=== PATIENT | male | born 1945 | race Caucasian/White ===

== ENCOUNTER 2018-03-25 20:26 | Emergency (ER) | payer MEDICARE, SELFPAY ==
--- NOTE | 2018-03-25 20:26 | DT_ITS ---
This patient was seen during an EMR downtime March 22, 2018 - March 29, 2018. This patient may have a combination of paper and electronic documentation or all paper documentation. All documentation is viewable within the e-chart portion of [facility] for each patient visit.
== END 2018-03-25 21:25 | disposition home or self-care (01) ==
LOC: ED 03-26 08:18
PROVIDERS: Emergency Provider Emergency Medicine; Family Provider Internal Medicine; PCP Internal Medicine
DX: K59.00 Constipation, unspecified (principal); I10 Essential (primary) hypertension; Z86.718 Personal history of other venous thrombosis and embolism; Z86.711 Personal history of pulmonary embolism; Z79.01 Long term (current) use of anticoagulants; Z79.899 Other long term (current) drug therapy
CPT/HCPCS: 99283

== ENCOUNTER 2018-04-19 13:30 | Emergency (ER) | payer MEDICARE, SELFPAY ==
[2018-04-19 13:31] VITALS: BP 145/106; PULSE 111; RESP 16; TEMP 36.7; O2SAT 98; BMI 30.9
--- NOTE | 2018-04-19 15:11 | CT_ITS ---
STUDY: CT ABDOMEN AND PELVIS WITH CONTRAST REASON FOR EXAM: Male, 72 years old. Umbilical hernia RADIATION DOSAGE (If Supplied By Facility): CTDIvol = ( 17.09 ) mGy, DLP = ( 1169.87 ) mGycm TECHNIQUE: Transaxial images were obtained from the dome of the diaphragm to the symphysis pubis without oral contrast. 100CC ml of Isovue 300 contrast was administered. Sagittal and coronal images were reconstructed. Individualized dose optimization techniques were used for this CT. COMPARISON: 08/22/2014 FINDINGS: The visualized lung bases are clear. The visualized portions of the heart and pericardium are within normal limits. There are no calcified gallstones present. The liver is within normal limits. There are no suspicious hepatic lesions. There are stable subcentimeter indeterminate hypodensities noted in the spleen. The spleen is normal in size. The pancreas is within normal limits. The adrenal glands are within normal limits. There are no renal or ureteral stones. There is no hydronephrosis. There are no focal renal lesions. Normal visualized stomach. There is no bowel obstruction or inflammation. The appendix is visualized and appears normal. There is a fat-containing ventral hernia which is stable in size when compared with the prior exam. There is mild stranding of the herniated fat. There is no bowel containing hernia. The aorta is normal in caliber. There is a small amount of free fluid. There is no free air, fluid collection or lymphadenopathy. There are bladder is diffusely thick-walled. Clinical correlation is recommended to evaluate for cystitis. There are no destructive osseous lesions. CT/Abdomen/Pelvis WITH Contrast IMPRESSION: Fat containing ventral hernia which is stable in size when compared with the prior exam. There is mild stranding of the herniated fat which is new when compared to the prior exam. This may be due to fat necrosis. No bowel containing hernia. No bowel obstruction or inflammation. Normal appendix. Diffusely thick-walled urinary bladder. Clinical correlation is recommended to evaluate for cystitis. Small amount of ascites. Stable indeterminate splenic hypodensities. Electronically Signed: Robert Chen, at 17:29 EDT Tel , Service support ,
--- NOTE | 2018-04-19 15:16 | ED.DCSUM_ITS ---
- ER Visit Summary Date of Service: 04/19/18 Chief Complaint: Abdominal pain History of Present Illness: The patient is a 72 M presenting with abdominal pain. Patient states he woke up around 4 AM this morning, 11 hours prior to arrival. He states that his umbilical hernia was sticking out and he was unable to get it back in. He has had the hernia for over 20 years. He states he has never had this problem in the past. He denies vomiting or fever. He states he has a history of previous bowel obstructions and feels similar. His last bowel movement was yesterday. Physical Examination: Vitals are stable. Patient is afebrile. Alert no acute distress. HEENT exam is unremarkable. Neck is supple. Lungs are clear and equal bilaterally. Heart is regular rate and rhythm. Abdomen is soft tenderness umbilical hernia Extremities are unremarkable. Skin is warm and dry. No focal neurologic deficit. Remainder of exam is unremarkable. Emergency Department Course and Treatment: Patient was placed in Trendelenburg and hernia was reduced. CBC, chemistries unremarkable other than glucose 121. INR 2.0. Urinalysis shows over 100 white blood cells. Lactic acid is normal. Urine culture was sent. CT abdomen pelvis shows fat containing ventral hernia which is stable in size when compared with the prior exam. There is mild stranding of the herniated fat which is new when compared to the prior exam. This may be due to fat necrosis. No bowel containing hernia. No bowel obstruction or inflammation. Normal appendix. Diffusely thick-walled urinary bladder. Clinical correlation is recommended to evaluate for cystitis. Small amount of ascites. Stable indeterminate splenic hypodensities. Patient is feeling much improved on repeat evaluation. He has been able to have a bowel movement in the emergency department. His abdominal pain is completely resolved. He is given Keflex for UTI. Discussed with Dr. Floyd and she will see him in the office tomorrow. Advised return to the ED for any worsening complaints. Disposition: Discharge home Impression: Abdominal pain, hernia-reduced This note was generated with [employer] dictation software. It may contain incorrect words, spelling, and punctuation that were not noted in review of the chart prior to signing ED Disposition - Plan for ED Patient: Chief Complaint: Abd Pain Referrals: Radha Franz MD [Primary Care Provider] -
[2018-04-19 15:39] LABS: Absolute Lymphocyte Count 0.86 X10^3/ul (0.83-4.51); Absolute Neutrophil Count 5.5 X10^3/uL (2.0-7.7); Basophil# 0.02 X10^3/uL; Basophil% 0.3 % (0-1); Eosinophil# 0.04 X10^3/uL; Eosinophils% 0.6 % (0-5); Hematocrit 51.4 % (40-54); Hemoglobin 17.6 g/dl (13.0-16.5); Lymphocyte # 0.86 X10^3/ul (4.0); Lymphocyte % 12.3 % (19-41); Mean Corp Hgb Conc 34.2 g/gl (32-36); Mean Corpuscular Hgb 32.3 pg (27.0-32.0); Mean Corpuscular Volume 94.3 fL (80-94); Mean Platelet Vol. 9.4 fl (6.2-12.0); Monocyte# 0.52 X10^3/uL; Monocyte% 7.5 % (0-10); Neutrophil # 5.52 X10^3/uL (2.7-7.7); Neutrophil % 79.2 % (47-70); Platelet Count 219 K/mm3 (150-450); Red Blood Count 5.45 M/mm3 (4.6-6.2)
[2018-04-19 15:42] LABS: POSITIVE COUNT NO; POSITIVE DIFFERENTIAL NO; POSITIVE MORPHOLOGY NO
[2018-04-19 15:46] LABS: Prothrombin Time (Protime)PT. 22.3 SECONDS (11.7-14.9)
[2018-04-19 15:50] LABS: Anion Gap 8 (5-15); BUN 6 mg/dL (7-18); BUN/Creat Ratio 5.8 RATIO (10-20); Calcium,Total 9.2 mg/dL (8.5-10.1); Chloride 107 mmol/L (98-107); Creatinine, Serum 1.03 mg/dL (0.70-1.30); EST Glomerular Filtration Rate 76 mL/min (>60); Est Glom Filt Rate - Afr Amer 92 mL/min (>60); Estimated Creatinine Clearance 79.76 ml/min; Glucose 121 mg/dL (74-106); Potassium 4.3 mmol/L (3.5-5.1); Sodium Level 145 mmol/L (136-145)
[2018-04-19 15:53] LABS: Mucous, Urine 0 SEEN /hpf (<or=2+); Squamous Epithelial Cells - UA 0 SEEN /hpf (0-5)
[2018-04-19 16:05] LABS: Color, Urine Yellow (Yellow); Glucose, Dipstick Normal (Normal); Ketone-Dipstick 5 mg/dl (Negative); Leukocyte Esterase-Dipstick 500 /ul (Negative); Nitrite-Dipstick Positive (Negative); Occult Blood-Urine 50 /ul (Negative); Protein-Dipstick 30 mg/dl (Negative); Urine Bilirubin Dipstick Negative (Negative); Urine Clarity Cloudy (Clear); Urine Urobilinogen 1 mg/dl (Normal)
[2018-04-19 16:21] LABS: Bacteria 2+ /hpf (None Seen); Red Blood Cells-Urine 5-10 SEEN /hpf (0-5); White Blood Cells >100 SEEN /hpf (0-5)
[2018-04-19 16:43] VITALS: BP 163/100; PULSE 93; RESP 16; O2SAT 97
[2018-04-19 17:17] LABS: Lactic Acid 0.7 mmol/L (0.4-2.0)
[2018-04-19 18:17] VITALS: BP 164/109; PULSE 78; RESP 16; O2SAT 98
--- NOTE | 2018-04-19 18:53 | ED.DEP ---
ED Disposition - Plan for ED Patient: Chief Complaint: Abd Pain Instructions: What Is a Hernia? Prescriptions: Cephalexin [Keflex] 500 mg PO BID #14 capsule Referrals: Radha Franz MD [Primary Care Provider] - Odessa Floyd MD [STAFF PHYSICIAN] -
[2018-04-19] MEDS: Cephalexin Suspension 250 MG/5 ML PO.SYRINGE 500 MG PO (19:09)
[2018-04-19 19:10] VITALS: RESP 16
== END 2018-04-19 19:11 | disposition home or self-care (01) ==
PROVIDERS: Emergency Provider Emergency Medicine; Family Provider Internal Medicine; PCP Internal Medicine
DX: K42.9 Umbilical hernia without obstruction or gangrene (principal); K43.9 Ventral hernia without obstruction or gangrene; R10.9 Unspecified abdominal pain; N39.0 Urinary tract infection, site not specified; G43.909 Migraine, unspecified, not intractable, without status migrainosus; I48.91 Unspecified atrial fibrillation; Z86.39 Personal history of other endocrine, nutritional and metabolic disease; Z87.19 Personal history of other diseases of the digestive system; Z79.01 Long term (current) use of anticoagulants; Z79.899 Other long term (current) drug therapy
CPT/HCPCS: 74177; 80048; 81001; 83605; 85025; 85610; 87077; 87086; 87088; 87186; 96360; 96361; 99284; J7030; J7040; Q9967; A4216

== ENCOUNTER 2018-09-13 10:19 | Day surgery (SDC) | payer MEDICARE, SELFPAY ==
[2018-09-13 10:44] VITALS: BP 112/68; PULSE 91; RESP 18; TEMP 36.8; O2SAT 96; BMI 24.2
[2018-09-13 11:01] LABS: INR Fingerstick > 6.00; Prothrombin Time Fingerstick 67.1 SEC (11.9-14.4)
[2018-09-13 11:04] LABS: Prothrombin Time (Protime)PT. 43.4 SECONDS (11.7-14.9)
--- NOTE | 2018-09-13 11:06 | HP.PCM_ITS ---
History and Physical Date of Admission: 09/13/18 HISTORY AND PHYSICAL ? Juan Antonio Wilson 1945 ? REFERRING PHYSICIAN: ??Maurice Rangel, DO ? CHIEF COMPLAINT: ??discuss EGD/peg placement ? HPI: The patient is a 72 year old male referred for endoscopy. ?Juan Antonio notes weight loss and dysphagia to solids and now liquids. ?He underwent upper endoscopy on August 30, 2018 which demonstrated a near obstructing esophageal cancer in the lower third. ?Biopsies turned as: ? 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 ? The patient is currently scheduled to see thoracic surgery [facility] and has already seen oncology. ?He'll be starting neoadjuvant treatment. ? He is not able to tolerate solid food. ?He can drink approximately 1 can of ensure per day. ?Dr. Rangel asked if I can place a Dobbhoff tube urgently to maintain his nutrition during his treatment. ? The patient is being seen by me today at the request of Dr. Rangel?for my opinion and advice regarding esophageal cancer need for Dobbhoff feeding placement. ? ? PAST MEDICAL HISTORY PAST MEDICAL HISTORY Diagnosis Date ? DVT, lower extremity 2000 ? With PE ? Esophageal reflux ? ? HYPERTROPHY PROSTATE W/O OBST 08/25/2005 ? Impotence of organic origin ? ? Impotence ? Migraine ? ? OA (osteoarthritis) of knee ? ? Right--sees Dr. Jimenes ? Obesity ? ? Other and unspecified hyperlipidemia ? ? Other psoriasis and similar disorders ? ? Psoriasis ? Snoring ? ? Unspecified essential hypertension ? ? ? PAST SURGICAL HISTORY PAST SURGICAL HISTORY Procedure Laterality Date ? LAPROSCOPIC REPAIR UMBILICAL HERNIA ? 04/27/2018 ? PAST SURGICAL HISTORY OF ? ? ? basal cell cancer nose ? PAST SURGICAL HISTORY OF ? 2006 ? Heart ablation ? TOTAL KNEE REPLACEMENT Right ? ? VASECTOMY ? 1980 ? ? CURRENT MEDICATIONS ? Current Outpatient Prescriptions: esomeprazole (NEXIUM) 40 mg capsule Take twice daily for 2 weeks then take once daily docusate sodium (COLACE) 100 mg capsule Take 1 capsule by mouth once daily. warfarin (COUMADIN) 5 mg tablet Take 7.5mg MWF and 5mg TTSS or as directed Tadalafil (CIALIS) 20 mg tab(s) Take 1 tablet by mouth once daily as needed. As directed. diltiazem CD (CARTIA XT) 180 mg 24 hr capsule Take 1 capsule by mouth once daily. tamsulosin ER (FLOMAX) 0.4 mg cp24 Take 2 capsules by mouth daily at bedtime. THERAPEUTIC MULTIVITAMIN TAB Take one(1) tablet daily. ? No current facility-administered medications for this visit. ? ALLERGIES: [place] [Hydrocodone-Acetaminophen] ? PERSONAL HISTORY: SOCIAL HISTORY Social History ??Marital status: ?Spouse name: ?Years of education: ?Number of children: ? Social History Main Topics ??Smoking status: Never Smoker ?Smokeless tobacco: Current User ?Types: Chew ??Comment: chews 1/2 pack daily ??Alcohol use: Yes ?Comment: beer ??Drug use: No ? FAMILY HISTORY: FAMILY HISTORY FAMILY HISTORY Problem Relation Age of Onset ? Hypertension Father ? ? other (voice box problems) Sister ?gets botox injections ? Cancer Maternal Grandmother ? ? Cancer Maternal Grandfather ? ? other (fall hip fracture) Paternal Grandmother ? at 91 ? other (old age) Paternal Grandfather ? ? REVIEW OF SYMPTOMS: ??The review of systems data was entered by the nurse and reviewed by me ? There are no exam notes on file for this visit. ? ? PHYSICAL EXAMINATION: ? General: ?The patient is 72 year old male, well nourished, well hydrated in no acute distress. ?The patient is oriented to time, place, and person. ? VITALS: Weight 89.4 kg (197 lb).?Body mass index is 26.35 kg/m?.? ? HEENT: ?Normal cephalic, ataumatic, pupils are equally round, sclera are anicteric, mucous membranes are moist, oropharynx is clear. ?Neck has no masses, asymmetry or lymphadenopathy. ?Thyroid is unremarkable. ? Respiratory: ?Clear to auscultation and percussion. ?Normal respiratory excursion and pattern. ? Cardiac: ?Examination is regular rate and rhythm. ? Abdominal exam: ?Soft, nontender, ?with no palpable masses. ?No hepatosplenomegaly. ?No palpable hernias. ? Rectal exam: exam deferred ? Extremities: ?no clubbing, cyanosis or edema. ?No adenopathy. ? Other: ? LABORATORY VALUES: As Noted ? RADIOLOGIC STUDIES: ?As Noted ? Assessment ? IMPRESSION: Esophageal cancer, need for feeding access ? PLAN: ?I plan to perform upper?endoscopy with Dobbhoff placement. ??We discussed the risks and benefits of the planned endoscopy. ?I have informed the patient that complications can occur including failure to complete the endoscopy and perforation. ?The patient had the opportunity to ask questions concerning the planned endoscopy. ?My staff has also explained the procedure to the patient in understandable terms and has given the patient printed material concerning the procedure. ?The patient freely consents to surgery. ? ? ? I plan for monitored anesthetic care. ? Diagnoses: (R13.10) Esophageal dysphagia ?(primary encounter diagnosis) (Z79.01) On continuous oral anticoagulation (C15.9) Malignant neoplasm of esophagus, unspecified location (HCC) ? My findings have been communicated to Dr. Chin Franz MD?via shared medical record. ?This note will be forwarded to Dr. Radha Franz MD. ?? Return to Clinic: The patient is instructed to follow-up with me after the testing has been completed. ? Hunter Cruz MD
[2018-09-13 11:07] LABS: International Normalized Ratio 4.5
[2018-09-13 12:55] VITALS: BP 112/68; BP 92/71; PULSE 81; RESP 14; TEMP 36.9; O2SAT 94
--- NOTE | 2018-09-13 12:55 | RAD_ITS ---
STUDY: X-RAY - ABDOMEN/PELVIS REASON FOR EXAM: Male, 72 years old. Dobbhoff tube placement. TECHNIQUE: Single AP view of the abdomen / pelvis. COMPARISON: None. FINDINGS: The tip of the Dobbhoff tube is seen within the second portion of the duodenum. There is an unremarkable bowel gas pattern. The visualized liver, spleen and kidneys are grossly normal in size and morphology. Normal soft tissue structures. Minimal levoscoliosis most likely secondary to positioning. RAD/Abdomen Single View (Portable) IMPRESSION: The tip of the Dobbhoff tube is in the second portion of the duodenum. Electronically Signed: Addison Rogers MD at 13:39 EST Tel [phone], Service support ,
[2018-09-13 13:00] VITALS: BP 112/68; BP 96/69; PULSE 82; RESP 14; O2SAT 93
--- NOTE | 2018-09-13 13:02 | OP.ENDO_ITS ---
Patient Name: Juan Antonio Wilson Procedure Date: 09/13/2018 11:43 AM Date of : 1945 Age: 72 Procedure: Upper GI endoscopy Indications: Therapeutic procedure Providers: Hunter Cruz MD Referring MD: Hunter Cruz MD Medicines: Monitored Anesthesia Care Patient Profile: This is a 72 year old male. Refer to note in patient chart for documentation of history and physical. Complications: No immediate complications. Procedure: Pre-Anesthesia Assessment: - Prior to the procedure, a History and Physical was performed, and patient medications and allergies were reviewed. The patient is competent. The risks and benefits of the procedure and the sedation options and risks were discussed with the patient. All questions were answered and informed consent was obtained. Patient identification and proposed procedure were verified by the physician, the nurse and the funeral greeter in the procedure room. Mental Status Examination: alert and oriented. Airway Examination: normal oropharyngeal airway and neck mobility. Respiratory Examination: clear to auscultation. CV Examination: normal. Prophylactic Antibiotics: The patient does not require prophylactic antibiotics. Prior Anticoagulants: The patient has taken no previous anticoagulant or antiplatelet agents. ASA Grade Assessment: III - A patient with severe systemic disease. After reviewing the risks and benefits, the patient was deemed in satisfactory condition to undergo the procedure. The anesthesia plan was to use monitored anesthesia care (MAC). Immediately prior to administration of medications, the patient was re-assessed for adequacy to receive sedatives. The heart rate, respiratory rate, oxygen saturations, blood pressure, adequacy of pulmonary ventilation, and response to care were monitored throughout the procedure. The physical status of the patient was re-assessed after the procedure. After obtaining informed consent, the endoscope was passed under direct vision. Throughout the procedure, the patient's blood pressure, pulse, and oxygen saturations were monitored continuously. The gastroscope was introduced through the mouth, and advanced to the lower third of esophagus. The procedure was aborted due to a partially obstructing mass. Performing the maneuvers documented (below) in this report did not allow for the successful completion of the procedure. Scope In: 12:37:04 PM Scope Out: 12:47:13 PM Total Procedure Duration Time 0 hours 10 minutes 9 seconds Findings: A large, fungating mass with no bleeding and no stigmata of recent bleeding was found in the lower third of the esophagus, 35 cm from the incisors. The mass was partially obstructing and circumferential. A 12 F dobhoff tube was placed through the right nares after a silastic bridal was placed. This had to be guided through a very narrow esophageal opening with a snare. The scope could not be advanced easily with the tube and the patient has an elevated INR >6 today. The tube was advanced beyond the near obstructing mass under endoscopic visulaization. The tube was secured and a post procedure Xray was ordered Impression: - The procedure was aborted due to partially obstructing mass. - Partially obstructing, likely malignant esophageal tumor was found in the lower third of the esophagus. - No specimens collected. Recommendation: - Discharge patient to home. - Continue present medications. Hunter Cruz MD 09/13/2018 1:01:40 PM This report has been signed electronically. Number of Addenda: 0 Note Initiated On: 09/13/2018 11:43 AM
[2018-09-13 13:05] VITALS: BP 112/68; BP 96/70; PULSE 79; RESP 14; O2SAT 93
[2018-09-13 13:09] VITALS: BP 112/68; BP 94/71; PULSE 82; RESP 14; TEMP 36.7; O2SAT 95
--- NOTE | 2018-09-13 14:03 | DCINST_ITS ---
You will use the following diet at home:: Other - bolus feeds per dobhoff tube - 6 cans total per day. flush tube with tap water after each bolus feed Additional Instructions: hold coumadin, have repeat INR Thursday. Will need to change medications to liquid if possible Allergies/Adverse Reactions: Allergies No Known Allergies Allergy (Verified 09/10/18 11:33) Medications to take at Discharge Diltiazem CD [Cardizem CD] 180 mg PO DAILY 08/10/14 Multivitamins,Therapeutic [Multivitamin] 1 tablet PO DAILY 08/10/14 Warfarin [Coumadin] 5 mg PO SUTUTHFRSA 07/01/16 Warfarin [Coumadin] 7.5 mg PO MOWE 07/01/16 Tamsulosin HCl [Flomax] 0.4 mg PO DAILY PRN PRN 07/15/16 Esomeprazole Mag Trihydrate [Nexium] 20 mg PO PRN PRN 09/10/18 Primary Care Physician: Radha Franz MD [Primary Care Provider] - Test Results: Test results from this visit will be discussed in further detail at your follow- up appointment, if applicable. Please Follow Up With: Hunter Cruz MD When: as needed
[2018-09-13 14:07] VITALS: BP 112/68
== END 2018-09-13 14:08 | disposition home or self-care (01) ==
LOC: EN 10:20 → AC 10:24
PROVIDERS: Family Provider Internal Medicine; PCP Internal Medicine; Referring Provider Surgery; Visit Provider Surgery
PROC: 0DJ08ZZ Inspection of Upper Intestinal Tract, Via Natural or Artificial Opening Endoscopic (ICD-10-PCS; CPT 43235; principal; 2018-09-13 11:55)
DX: C15.9 Malignant neoplasm of esophagus, unspecified (principal); K21.9 Gastro-esophageal reflux disease without esophagitis; N40.0 Benign prostatic hyperplasia without lower urinary tract symptoms; M17.11 Unilateral primary osteoarthritis, right knee; L40.9 Psoriasis, unspecified; I10 Essential (primary) hypertension; Z86.718 Personal history of other venous thrombosis and embolism; Z86.711 Personal history of pulmonary embolism; Z79.01 Long term (current) use of anticoagulants; Z79.899 Other long term (current) drug therapy; F17.220 Nicotine dependence, chewing tobacco, uncomplicated
CPT/HCPCS: 43235; 36416; 74018; 85610; 86850; 86900; 97802; 97803; J7120

== ENCOUNTER 2018-10-18 10:33 | Day surgery (SDC) | payer MEDICARE, SELFPAY ==
[2018-10-18 11:21] VITALS: BP 91/74; PULSE 95; RESP 16; TEMP 37.2; O2SAT 99; BMI 22.4
--- NOTE | 2018-10-18 13:56 | RAD_ITS ---
STUDY: X-RAY - ABDOMEN/PELVIS REASON FOR EXAM: Male, 73 years old. Dobbhoff placement. TECHNIQUE: Single AP view of the abdomen / pelvis. COMPARISON: Comparison is made with prior examination dated September 13, 2018. FINDINGS: Normal visualized lung bases. The tip of the Dobbhoff tube is coiled in the distal body of the stomach. The visualized liver, spleen and kidneys are grossly normal in size and morphology. Normal soft tissue structures. Normal visualized osseous structures. RAD/Abdomen Single View (Portable) IMPRESSION: The distal portion of the Dobbhoff tube is coiled within the distal portion of the body of the stomach. Electronically Signed: Addison Rogers MD at 14:18 EST Tel [phone], Service support ,
[2018-10-18 13:57] VITALS: BP 108/65; BP 91/74; PULSE 89; RESP 16; TEMP 36.7; O2SAT 96
[2018-10-18 14:02] VITALS: BP 104/66; BP 91/74; PULSE 91; RESP 16; O2SAT 98
[2018-10-18 14:07] VITALS: BP 91/74; BP 97/79; PULSE 96; RESP 16; O2SAT 98
[2018-10-18 14:12] VITALS: BP 91/74; BP 94/69; PULSE 113; RESP 16; TEMP 36.8; O2SAT 100
[2018-10-18 14:45] VITALS: BP 91/74
--- NOTE | 2018-10-18 16:47 | OP.ENDO_ITS ---
Patient Name: Juan Antonio Wilson Procedure Date: 10/18/2018 1:25 PM Date of : 1945 Age: 73 Procedure: Upper GI endoscopy Indications: Placement of Dobhoff tube Providers: Odessa Floyd MD Medicines: See the Anesthesia note for documentation of the administered medications Patient Profile: Refer to note in patient chart for documentation of history and physical. Complications: No immediate complications. Procedure: Pre-Anesthesia Assessment: - Prior to the procedure, a History and Physical was performed, and patient medications and allergies were reviewed. The patient is competent. The risks and benefits of the procedure and the sedation options and risks were discussed with the patient. All questions were answered and informed consent was obtained. Patient identification and proposed procedure were verified by the metal roaster in the pre-procedure area. Mental Status Examination: alert and oriented. Airway Examination: normal oropharyngeal airway and neck mobility. Respiratory Examination: clear to auscultation. CV Examination: normal. ASA Grade Assessment: III - A patient with severe systemic disease. After reviewing the risks and benefits, the patient was deemed in satisfactory condition to undergo the procedure. The anesthesia plan was to use monitored anesthesia care (MAC). Immediately prior to administration of medications, the patient was re-assessed for adequacy to receive sedatives. The heart rate, respiratory rate, oxygen saturations, blood pressure, adequacy of pulmonary ventilation, and response to care were monitored throughout the procedure. The physical status of the patient was re-assessed after the procedure. After obtaining informed consent, the endoscope was passed under direct vision. Throughout the procedure, the patient's blood pressure, pulse, and oxygen saturations were monitored continuously. The gastroscope was introduced through the mouth, and advanced to the lower third of esophagus. The upper GI endoscopy was accomplished without difficulty. The patient tolerated the procedure well. Scope In: 1:37:58 PM Scope Out: 1:46:39 PM Total Procedure Duration Time 0 hours 8 minutes 41 seconds Findings: The esophageal cancer distal third noted. Impression: - esophageal cancer. - No specimens collected. Recommendation: - Discharge patient to home (ambulatory). - Resume previous diet. - Continue present medications. - Return to my office PRN. Procedure Code(s): --- Professional --- 81963, Esophagoscopy, flexible, transoral; diagnostic, including collection of specimen(s) by brushing or washing, when performed (separate procedure) CPT copyright 2017 [employer]. All rights reserved. The codes documented in this report are preliminary and upon audio visual aide review may be revised to meet current compliance requirements. MD Odessa Gutiérrez MD 10/18/2018 4:46:47 PM This report has been signed electronically. Number of Addenda: 0 Note Initiated On: 10/18/2018 1:25 PM
== END 2018-10-18 14:51 | disposition home or self-care (01) ==
LOC: EN 10:37 → AC 10:56
PROVIDERS: Family Provider Internal Medicine; PCP Internal Medicine; Referring Provider Surgery; Visit Provider Surgery
PROC: 0DJ08ZZ Inspection of Upper Intestinal Tract, Via Natural or Artificial Opening Endoscopic (ICD-10-PCS; CPT 43235; principal; 2018-10-18 13:55)
DX: C15.5 Malignant neoplasm of lower third of esophagus (principal); E78.00 Pure hypercholesterolemia, unspecified; I10 Essential (primary) hypertension; K21.9 Gastro-esophageal reflux disease without esophagitis; N40.0 Benign prostatic hyperplasia without lower urinary tract symptoms; M19.90 Unspecified osteoarthritis, unspecified site; Z86.718 Personal history of other venous thrombosis and embolism; Z79.01 Long term (current) use of anticoagulants; F17.220 Nicotine dependence, chewing tobacco, uncomplicated
CPT/HCPCS: 43200; 74018; J7120

== ENCOUNTER 2018-10-29 09:44 | Inpatient (IN) | payer MEDICARE, SELFPAY ==
[2018-10-29] VITALS (36 sets, daily range): BP systolic 91–145; BP diastolic 52–87; PULSE 91–113; RESP 13–30; TEMP 36.7–38.9; O2SAT 92–100; BMI 25.4; BMI 24.7
--- NOTE | 2018-10-29 09:53 | EKG12_ITS ---
Test Reason : NEURO Blood Pressure : / mmHG Vent. Rate : 105 BPM Atrial Rate : 102 BPM P-R Int : 000 ms QRS Dur : 090 ms QT Int : 400 ms P-R-T Axes : 000 -18 -13 degrees QTc Int : 528 ms Sinus tachy Nonspecific ST and T wave abnormality Abnormal ECG Confirmed by ARACELIS DIXON, LINDSEY ([id number]), appraisal coordinator WILLIAM TERESA ([id number]) on 11/02/2018 5:00:48 PM Referred By: Fox Gee Confirmed By:LINDSEY HSU MD
--- NOTE | 2018-10-29 09:53 | CT_ITS ---
STUDY: CT BRAIN WITHOUT CONTRAST REASON FOR EXAM: Male, 73 years old. CVA. RADIATION DOSAGE (If Supplied By Facility): CTDIvol = ( 60.81 ) mGy, DLP = ( 2772.72 ) mGycm TECHNIQUE: Transaxial CT imaging of the brain was performed without administration of intravenous contrast material. Individualized dose optimization techniques were used for this CT. COMPARISON: Comparison is made with prior study dated August 11, 2014. FINDINGS: Normal soft tissue structures. Normal calvarium. There is mild cerebral atrophy with widening of the extra-axial spaces and ventricular dilatation. There are areas of decreased attenuation within the white matter tracts of the supratentorial brain, consistent with microvascular disease changes. Normal basal ganglia and thalami. Normal brainstem. Normal cerebellum. There is no intracranial hemorrhage. There are no findings of an acute ischemic infarction. Atherosclerotic calcification of the cavernous portions of the internal carotid arteries as well as the vertebral arteries. Normal visualized paranasal sinuses. CT/Brain/Head without Contrast IMPRESSION: Chronic involutional changes of the brain. N.B. : The above information has been verbally conveyed by Addison Rogers MD to Maurice Wilde on 10/29/2018 10:24:08 (ET). Electronically Signed: Addison Rogers MD at 10:25 EST Tel [phone], Service support ,
--- NOTE | 2018-10-29 09:53 | RAD_ITS ---
STUDY: X-RAY CHEST REASON FOR EXAM: Male, 73 years old. Confusion. TECHNIQUE: Single AP portable view of the chest. COMPARISON: Comparison is made with prior study August 10, 2014. FINDINGS: EKG electrodes are seen. Minimal increased markings in the right midlung. Radiographic follow-up is recommended. This was not seen on prior study. There is no demonstrated pleural abnormality. There is mild cardiac enlargement. Normal mediastinum and almita. Normal visualized pulmonary arteries. There is atherosclerotic tortuosity of the aortic arch and descending thoracic aorta. Normal visualized thoracic spine. There is degenerative osteoarthritis of the bilateral shoulders. Small hiatal hernia. RAD/Chest 1 View IMPRESSION: Focal area of increased markings in the right midlung. Follow-up is recommended. Electronically Signed: Addison Rogers MD at 10:27 EST Tel [phone], Service support ,
--- NOTE | 2018-10-29 09:53 | ED.RN ---
PAGED DR DONNELLY 9:50.
[2018-10-29 09:56] LABS: Bedside Glucose 99 mg/dL (70-110)
[2018-10-29 10:08] LABS: Absolute Lymphocyte Count 0.13 X10^3/ul (0.83-4.51); Absolute Neutrophil Count 2.4 X10^3/uL (2.0-7.7); Hematocrit 32.4 % (40-54); Hemoglobin 10.8 g/dl (13.0-16.5); Lymphocyte # 0.13 X10^3/ul (4.0); Lymphocyte % 4.9 % (19-41); Mean Corp Hgb Conc 33.3 g/gl (32-36); Mean Corpuscular Hgb 31.7 pg (27.0-32.0); Mean Platelet Vol. 10.1 fl (6.2-12.0); Monocyte# 0.06 X10^3/uL; Monocyte% 2.2 % (0-10); Neutrophil # 2.41 X10^3/uL (2.7-7.7); Neutrophil % 90.3 % (47-70); Platelet Count 107 K/mm3 (150-450); RBC Distribution Width CV 14.2 % (11.6-14.6); RBC Distribution Width SD 48.9 fl (35.1-43.9); Red Blood Count 3.41 M/mm3 (4.6-6.2); White Blood Count 2.7 K/mm3 (4.4-11.0)
[2018-10-29 10:09] LABS: Differential Indicated SCAN CRITERIA MET; POSITIVE COUNT YES; POSITIVE DIFFERENTIAL YES; POSITIVE MORPHOLOGY YES
[2018-10-29 10:11] LABS: International Normalized Ratio 1.1
[2018-10-29 10:12] LABS: Partial Thromboplast Time 27.8 Seconds (24.1-36.2)
--- NOTE | 2018-10-29 10:12 | ED.RN ---
CONY CALLED BACK REGARDING STROKE 10:12.
[2018-10-29 10:17] LABS: Anion Gap 9 (5-15); BUN 17 mg/dL (7-18); BUN/Creat Ratio 21.5 RATIO (10-20); Chloride 101 mmol/L (98-107); Creatinine, Serum 0.79 mg/dL (0.70-1.30); EST Glomerular Filtration Rate 103 mL/min (>60); Est Glom Filt Rate - Afr Amer 124 mL/min (>60); Estimated Creatinine Clearance 72.16 ml/min; Glucose 130 mg/dL (74-106); Potassium 3.8 mmol/L (3.5-5.1); Sodium Level 135 mmol/L (136-145)
--- NOTE | 2018-10-29 10:27 | ED.VISSUMM ---
- ER Visit Summary Date of Service: 10/29/18 Chief Complaint: Speech difficulty and confusion History of Present Illness: The patient is a 73 M who has been weak over the past few months from esophageal mass and chemotherapy. However this morning there is a clear change in his speech. This started at about 8:45 AM. Family brought him in for confusion and speech difficulty. There is no history of weakness facial droop sensory deficits or gait deficit. Patient was seen in 9:45 AM. He has a history of a mediastinal mass with esophageal involvement, he has an NG present and gets tube feeds. He is able to talk. Physical Examination: Not appear in acute distress. Slightly dry mucous membranes, no obvious facial deformity. NG is intact. No C-spine tenderness supple neck. Regular rate and rhythm without any obvious murmurs Clear lungs bilaterally speaking in full sentences without any obvious respiratory distress Abdomen soft and nontender no guarding or rebound Moves all extremities without any difficulty or pain. Skin does not show any obvious rashes or lesions, no trauma. Alert. See template for NIH stroke scale, level of consciousness 0, LOC questions scores of 2, and he gets 1 for aphasia, he can point to some objects clearly however some objects he cannot get his words out. He has no dysarthria or inattention or extinction. Otherwise he has no facial palsy motor difficulty visual field cut or any other symptoms. His NIH stroke scale is 3. Emergency Department Course and Treatment: Stroke team was called overhead per nurse's protocol. I immediately ran into the room. Patient went to CT, I discussed with the radiologist at [address] and TPA was ordered. I discussed with neurologist [id number]. Because patient has aphasia and meets criteria for TPA. I had a long discussion with the family, initially they are quite reluctant to give TPA because of the risks, however after I told them the risks involved as well as the potential benefits and that the [place] stroke [employer] recommends this all were in agreement including the patient's power of employment attorney. I went through the contraindication list, he does not meet any exclusion criteria. TPA was started at 1042. I will send him for CTA after TPA is started. I discussed the patient with hospitalist, neurologist also was at the bedside. Disposition: Admit to the ICU in critical condition Impression: Acute stroke. Critical care time 35 minutes. This is secondary to patient's critical condition, multiple consults with radiology and neurology. This does not include any procedures performed by me. 13:28-patient developed a fever in the emergency department, I will give him Tylenol, will admit him as prior. Blood cultures lactic acid was drawn will be seen by hospitalist and followed up for the This note was generated with [employer] dictation software. It may contain incorrect words, spelling, and punctuation that were not noted in review of the chart prior to signing ED Disposition - Plan for ED Patient: Chief Complaint: Neuro S/Sx Referrals: Radha Franz MD [Primary Care Provider] -
--- NOTE | 2018-10-29 10:32 | ED.RN ---
CONSENT SIGNED BY SON, KENYON.
--- NOTE | 2018-10-29 10:40 | ED.RN ---
UNABLE TO OBTAIN SECOND IV SITE PRIOR TO ADMINISTERING TPA.
--- NOTE | 2018-10-29 10:48 | CT_ITS ---
STUDY: CTA OF THE BRAIN REASON FOR EXAM: Male, 73 years old. CVA RADIATION DOSAGE (If Supplied By Facility): CTDIvol = ( 23.96 ) mGy, DLP = ( 785.64 ) mGycm TECHNIQUE: CT angiography was performed with a multi-detector CT scanner. Data acquisition was obtained from the skull base through the vertex following intravenous administration of 100 ml of Visipaque 370. MIP images were reconstructed from the axial data set. Post-processing of the angiographic images was performed, with multiplanar reformation and 3D reconstruction. Individualized dose optimization techniques were used for this CT. COMPARISON: None. FINDINGS: Normal bilateral petrous carotid arteries. There is calcified plaque formation of the right cavernous carotid artery, without a cross-sectional luminal stenosis. There is calcified plaque formation of the left cavernous carotid artery, without a cross-sectional luminal stenosis. Normal right A1 segments of the anterior cerebral artery. Normal left A1 segments of the anterior cerebral artery. Normal intact anterior communicating artery (ACOM). Normal bilateral A2 segments of the anterior cerebral arteries. Normal right M1 and M2 segments of the middle cerebral arteries, with a normal M1 bifurcation. Normal left M1 and M2 segments of the middle cerebral arteries, with a normal M1 bifurcation. There is non-visualization of the right posterior communicating artery (PCOM). There is non-visualization of the left posterior communicating artery (PCOM). Mild atherosclerosis of the bilateral intracranial vertebral arteries without hemodynamically significant stenosis. The right side is slightly dominant. Normal basilar artery with a normal basilar bifurcation. The visualized bilateral superior cerebellar (SCA) arteries are normal. Normal bilateral P1, P2 and visualized P3 segments of the posterior cerebral arteries. There is no demonstrated aneurysm of the north fork of Yu. There is no demonstrated abnormality of the visualized brain. Nasogastric tube is partially visualized. CT/CTA Head W/WO Contrast IMPRESSION: Normal north fork of Yu without a demonstrated aneurysm or hemodynamically significant stenosis. Electronically Signed: Mathew Mills MD at 12:37 EST , Service support ,
--- NOTE | 2018-10-29 10:48 | CT_ITS ---
STUDY: CTA NECK WITH AND WITHOUT CONTRAST REASON FOR EXAM: Male, 73 years old. CVA. RADIATION DOSAGE (If Supplied By Facility): CTDIvol = ( 23.96 ) mGy, DLP = ( 785.64 ) mGycm TECHNIQUE: CT angiography with multi-detector data acquisition was performed from the aortic arch to the skull base prior to and after intravenous administration of 100ML ml of Isovue 370 contrast. MIP images were reconstructed from the axial data set. Post-processing of the angiographic images was performed, with multiplanar reformation and 3D reconstruction. Individualized dose optimization techniques were used for this CT. COMPARISON: None. FINDINGS: AORTIC ARCH: There is atherosclerotic calcific plaque formation of the aortic arch and great vessels arising from the aortic arch, without a hemodynamically significant stenosis. Atherosclerotic plaque formation at the origin of the subclavian artery on the left side and brachiocephalic artery. RIGHT CAROTID ARTERIES: Normal right common carotid artery (CCA). Normal right common carotid bulb. There is moderate atherosclerotic plaque formation of the origin of the right internal carotid artery with an estimated stenosis of 50-69% stenosis. Normal visualized cervical portion of the right internal carotid artery. Normal origin of the right external carotid artery (ECA). LEFT CAROTID ARTERIES: Normal left common carotid artery (CCA). Normal left common carotid bulb. There is mild atherosclerotic plaque formation of the origin of the left internal carotid artery with less than 50% cross sectional diameter stenosis. Normal visualized cervical portion of the left internal carotid artery. Normal origin of the left external carotid artery (ECA). VERTEBRAL ARTERIES: Normal bilateral vertebral arteries. CT/CTA Neck W/WO Contrast IMPRESSION: Atherosclerotic plaque formation at the right carotid bifurcation causing between 50 and 69% stenosis. Electronically Signed: Addison Rogers MD at 13:15 EST Tel [phone], Service support ,
--- NOTE | 2018-10-29 11:59 | CON.PCM_ITS ---
Reason for Consult Date of Consultation: 10/29/18 Reason for Consultation: Stroke team History of Present Illness: The patient is a 73 year old M with a history of atrial fibrillation as well as a periesophageal tumor, previously on Coumadin but this was changed to Lovenox because of his inability to swallow due to the above-mentioned tumor. He apparently has not been taking his Lovenox per the family. This morning he had an acute onset of language abnormality specifically aphasia. Stroke team was called, I discussed the combination of factors with the emergency department physician, and the decision to initiate TPA was made. The emergency department physician discussed the risks and benefits with the patient's family and subsequently I did as well and they agreed and understand the risks and benefits. The patient has previously been on Coumadin but because of a mass in his chest which apparently is treated by Dr. Maurice Rangel with chemotherapy and radiation, he had compression of his esophagus and required a nasal oral feeding tube. Currently his swallowing has improved however but he remains off anticoagulation. Past Medical History Past Medical History (Chronic Problems): Chronic Problems Migraine (Chronic) Hyperlipidemia (Chronic) History of DVT (Chronic) GERD (Chronic) BPH (Chronic) Alcohol abuse (Chronic) Per family patient drinks about 3-4 beers per day Atrial fibrillation (Chronic) Following with Dr. Carcamo. On Coumadin therapy. Allergies No Known Allergies Allergy (Verified 09/10/18 11:33) Home Medications: Ambulatory Orders Medication Instructions Recorded Potassium Chloride 20 meq PO BID 10/29/18 Surgical History: noncontributory Smoking Status: Never smoker Tobacco Use: Non-smoker Alcohol: None Drugs: None - *Family History Maternal History Items: No pertinent history Review of Systems Unable to obtain accurate/complete ROS d/t: Communication abnormality Comment: In the family members he has been his normal self recently no new medications or changes in his medications and has had several rounds of chemotherapy and radiation in has tolerated them well. Objective: On neurologic examination he is awake and alert. Cranial nerves are intact Follow simple commands Is unable to tell me his name, his age or his month and has both expressive and receptive a aphasia No pronator drift or weakness in his upper or lower extremities Sensation is intact NIH stroke score is 3 - Physical Exam Vital Signs Temp Pulse Resp BP Pulse Ox 36.9 C 111 H 20 H 137/79 H 97 10/29/18 09:50 10/29/18 11:45 10/29/18 11:45 10/29/18 11:45 10/29/18 11:45 Oxygen Flow Rate (L/min) 2 Oxygen Delivery Method Nasal Cannula Weight: 82.9 kg Body Mass Index (BMI) 25.4 Finger Stick Blood Glucose 99 Laboratory Tests Past 24 Hrs 10/29/18 10/29/18 10/29/18 09:45 09:45 09:45 WBC 2.7 L RBC 3.41 L Hgb 10.8 L Hct 32.4 L MCV 95.0 H MCH 31.7 MCHC 33.3 RDW 14.2 RDW Differential 48.9 H Plt Count 107 L MPV 10.1 Immature Gran % (Auto) 2.600 H Neut % (Auto) 90.3 H Lymph % (Auto) 4.9 L [place] % (Auto) 2.2 Eos % (Auto) 0.0 Baso % (Auto) 0.0 Absolute Neuts (auto) 2.4 Absolute Lymphs (auto) 0.13 L Total Counted Not Reportable Differential Comment COMMENT Diff Path Review May foll PT 14.0 INR 1.1 APTT 27.8 Sodium 135 L Potassium 3.8 Chloride 101 Carbon Dioxide 25.0 Anion Gap 9 BUN 17 Creatinine 0.79 Estim Creat Clear Calc 72.16 Est GFR (MDRD) Af Amer 124 Est GFR (MDRD) Non-Af 103 BUN/Creatinine Ratio 21.5 H Glucose 130 H Calcium 8.0 L Troponin I 0.047 H POC Glucose 10/29/18 09:[address] reviewed, no acute. Atrophy, mild to moderate. Assessment/Plan Impression: Acute left MCA distribution infarct status post IV TPA. Risks and benefits explained to the family by both myself as well as the emergency department physicians, family agreed to initiation of therapy. Plan: Admit to ICU for close monitoring MRI of the brain tomorrow Urinary retention: We will need to follow for the next few hours, ideally no new catheterizations IV or urinary for [address] if changes in mental status PT/OT/speech therapy Consider rehab
--- NOTE | 2018-10-29 12:11 | ED.RN ---
UNABLE TO COMPLETE DYSPHAGIA SCREENING. PT CURRENTLY ONLY ABLE TO CONSUME WATER THICK LIQUIDS D/T PRESENCE OF MASS ABOVE STOMACH PER DR. HOWELL.
[2018-10-29 12:13] LABS: Red Blood Cells-Urine 0 SEEN /hpf (0-5); White Blood Cells 0 SEEN /hpf (0-5)
[2018-10-29 12:14] LABS: Color, Urine Yellow (Yellow); Glucose, Dipstick Normal (Normal); Ketone-Dipstick Negative (Negative); Leukocyte Esterase-Dipstick Negative /ul (Negative); Nitrite-Dipstick Negative (Negative); Occult Blood-Urine Negative /ul (Negative); Protein-Dipstick 15 mg/dl (Negative); Urine Bilirubin Dipstick Negative (Negative); Urine Clarity Clear (Clear); Urine Urobilinogen Normal (Normal)
[2018-10-29 12:24] LABS: Bacteria RARE /hpf (None Seen); Mucous, Urine RARE /hpf (<or=2+); Squamous Epithelial Cells - UA 0-5 SEEN /hpf (0-5)
--- NOTE | 2018-10-29 12:45 | ED.RN ---
sepsis alert initiated 1242. inpatient services rn, printing shop supervisor, notified. natasha saha rn [phone]
--- NOTE | 2018-10-29 13:22 | ED.RN ---
one set of blood cultures obtain. due to tpa and no secondary line no second set of blood cultures obtained. leonardo hilliard.
--- NOTE | 2018-10-29 13:30 | HP.PCM_ITS ---
Problem List (1) CVA (cerebral vascular accident) Status: Acute (2) Esophageal cancer Status: Chronic Qualifiers: Malignant neoplasm of esophagus location: lower third Qualified Code(s): C15.5 - Malignant neoplasm of lower third of esophagus (3) Atrial fibrillation Status: Chronic Comment: Following with Dr. Carcamo. On Coumadin therapy. (4) BPH Status: Chronic (5) GERD Status: Chronic (6) History of DVT Status: Chronic (7) Hyperlipidemia Status: Chronic History of Present Illness Date of Admission: 10/29/18 Chief Complaint: Dysarthria The patient is a 73 year old M with PMH as below who presents from home with expressive dysarthria. He states that he is feeling fine now and is able to speak freely, but family states that this is significantly better than when he came in. He was last known normal today at around 8:45 in the morning. The family noticed that he he developed difficulty with speaking and confusion. They denied any signs of the facial droop or difficulty walking. Though they have noticed that since starting chemo and radiation for his esophageal cancer, he has been getting weaker. He also notes that he was on Coumadin for his A. fib which was ablated in 2006, and DVT history, but he was transitioned to Lovenox because of difficulty swallowing due to the esophageal tumor and they s casper that he has not been very good at taking his Lovenox the way has been prescribed. He presented to the ER as a stroke alert, and CT scan was done was negative for bleed, and given his NIH of 3 and his last known well being within the window for TPA, he was given a dose of TPA done in the ER and is currently undergoing CTAs of the head and neck. Past Medical History Past Medical History (Chronic Problems): Chronic Problems Esophageal cancer (Chronic) Dysphasia (Chronic) Migraine (Chronic) Hyperlipidemia (Chronic) History of DVT (Chronic) GERD (Chronic) BPH (Chronic) Alcohol abuse (Chronic) Per family patient drinks about 3-4 beers per day Atrial fibrillation (Chronic) Following with Dr. Carcamo. On Coumadin therapy. Allergies No Known Allergies Allergy (Verified 09/10/18 11:33) Home Medications: Ambulatory Orders Medication Instructions Recorded Lactose-Reduced Food/Fiber 250 ml PO Q2H 10/29/18 [Isosource 1.5 Claus Liquid] Potassium Chloride 20 meq PO BID 10/29/18 Surgical History: noncontributory Smoking Status: Never smoker Tobacco Use: Non-smoker Alcohol: None Drugs: None - *Family History Maternal History Items: No pertinent history Review of Systems Constitutional: Denies: Chills, Fever, Weight Change HEENT: Reports: Dysphasia. Denies: Head Aches, Sinus Congestion, Sinus Drainage Cardiovascular: Denies: Chest Pain, Palpitations Respiratory: Denies: Cough, Shortness of breath at rest, Sputum production Gastrointestinal: Denies: Abdominal Pain, Nausea, Vomiting Genitourinary: Denies: Dysuria Musculoskeletal: Denies: Joint Pain, Joint Tenderness Skin: Denies: Rash, Wounds Neurological: Denies: Numbness, Tingling, Focal weakness Psychiatric: Denies: Anxiety, Depression Hematologic/ Lymphatic: Denies: Easy Bruising, Easy Bleeding Unable to obtain accurate/complete ROS d/t: Significant expressive aphasia VTE Information - Inpt Only VTE Present on Admission: No Patient Problems: Active and Suspected Problems CVA (cerebral vascular accident) (Acute) - Physical Exam General: Alert, Oriented x3, Cooperative, No apparent distress HEENT: Atraumatic, PERRLA, EOMI, Normocephalic, - - NG tube in place Oral: Dry Mucosa Neck: Supple, No JVD, Trachea Midline Lungs: Clear to auscultation, Normal air movement, No rhonchi, No wheeze, No rales Cardiovascular: Regular rate, Regular Rhythm, Normal S1, Normal S2, No murmurs, No rub noted, No Gallop Abdomen: Soft, Non-Distended, No Hepato-splenomegaly Extremities: No edema, Capillary Refill Less than 3 Seconds Skin: No rashes, No breakdown Neurological: Neuro grossly intact, Sensory exam intact to light touch and pain Psych/Mental Status: Normal Affect, Appropriate Vital Signs Temp Pulse Resp BP Pulse Ox 102.0 F H 104 H 24 H 145/52 H 100 10/29/18 13:15 10/29/18 13:15 10/29/18 13:15 10/29/18 13:15 10/29/18 13:15 Oxygen Flow Rate (L/min) 2 Oxygen Delivery Method Nasal Cannula Weight: 182 lb 12.211 oz Body Mass Index (BMI) 25.4 Finger Stick Blood Glucose 99 Laboratory Tests Past 24 Hrs 10/29/18 10/29/18 10/29/18 09:45 09:45 09:45 WBC 2.7 L RBC 3.41 L Hgb 10.8 L Hct 32.4 L MCV 95.0 H MCH 31.7 MCHC 33.3 RDW 14.2 RDW Differential 48.9 H Plt Count 107 L MPV 10.1 Immature Gran % (Auto) 2.600 H Neut % (Auto) 90.3 H Lymph % (Auto) 4.9 L [place] % (Auto) 2.2 Eos % (Auto) 0.0 Baso % (Auto) 0.0 Absolute Neuts (auto) 2.4 Absolute Lymphs (auto) 0.13 L Total Counted Not Reportable Differential Comment COMMENT Diff Path Review May foll PT 14.0 INR 1.1 APTT 27.8 Sodium 135 L Potassium 3.8 Chloride 101 Carbon Dioxide 25.0 Anion Gap 9 BUN 17 Creatinine 0.79 Estim Creat Clear Calc 72.16 Est GFR (MDRD) Af Amer 124 Est GFR (MDRD) Non-Af 103 BUN/Creatinine Ratio 21.5 H Glucose 130 H Calcium 8.0 L Troponin I 0.047 H Urine Color Urine Clarity Urine pH Ur Specific [place] Urine Protein Urine Glucose (UA) Urine Ketones Urine Occult Blood Urine Nitrite Urine Bilirubin Urine Urobilinogen Ur Leukocyte Esterase Urine RBC Urine WBC Ur Squamous Epith Cells Urine Bacteria Urine Mucus 10/29/18 11:50 WBC RBC Hgb Hct MCV MCH MCHC RDW RDW Differential Plt Count MPV Immature Gran % (Auto) Neut % (Auto) Lymph % (Auto) [place] % (Auto) Eos % (Auto) Baso % (Auto) Absolute Neuts (auto) Absolute Lymphs (auto) Total Counted Differential Comment Diff Path Review PT INR APTT Sodium Potassium Chloride Carbon Dioxide Anion Gap BUN Creatinine Estim Creat Clear Calc Est GFR (MDRD) Af Amer Est GFR (MDRD) Non-Af BUN/Creatinine Ratio Glucose Calcium Troponin I Urine Color Yellow Urine Clarity Clear Urine pH 7.0 Ur Specific [place] 1.010 Urine Protein 15 H Urine Glucose (UA) Normal Urine Ketones Negative Urine Occult Blood Negative Urine Nitrite Negative Urine Bilirubin Negative Urine Urobilinogen Normal Ur Leukocyte Esterase Negative Urine RBC 0 SEEN Urine WBC 0 SEEN Ur Squamous Epith Cells 0-5 SEEN Urine Bacteria RARE Urine Mucus RARE POC Glucose 10/29/18 09:52 POC Glucose 99 Assessment/Plan All Active Problems CVA (cerebral vascular accident) (Acute) 1. CVA status post TPA -My exam occurred after the TPA had been given -Symptoms have completely resolved -He is able to communicate with me and is alert and oriented -We will transfer to the ICU for monitoring after TPA per stroke protocol -We will maintain blood pressures less than 180 systolic -Consult to neurology and training program manager -He did have a fever after the TPA was given, will monitor. In the ER he had blood cultures drawn lactate with 1.1 -With the family he has not had any infection symptoms prior to the TPA therefore I do not believe this is more of a side effect of the TPA than an infection -X-ray and UA are negative -PT/OT as well as speech therapy to assess for dysphagia prior to initiating limited p.o., he is only allowed to take liquids because of esophageal cancer -MRI in a.m. 2. Esophageal mass -Per the family this is a precancerous lesion -Is undergoing chemoradiation to shrink the cancer for eventual surgical resection in the next 4 weeks 3. He does not take any medications for any other diagnoses because of the NG tube. He has had the NG tube for over a month and has since discontinued all of his home medications. The family is unsure as to what he was on as an outpatient though he does have a history of a ablation for an abnormal rhythm, making me believe that this is either A. fib or a flutter. He was also on medications for his blood pressure prior as well but the family is unsure as to what kind. He was on Coumadin for the abnormal cardiac rhythm as well as a history of DVT DVT: SCDs Code Visit Inpatient E&M: 36190 Init Hosp L3
[2018-10-29 13:50] LABS: Lactic Acid 1.1 mmol/L (0.4-2.0)
[2018-10-29] MEDS: Acetaminophen 650 MG Suppository RECTAL (13:58)
--- NOTE | 2018-10-29 14:28 | ECHOD_ITS ---
Reason For Study: TIA/CVA Procedure This was a 2D Doppler, Color Flow transthoracic echocardiogram. The exam was of adequate technical quality. Exam performed portable in ICU/CCU. Left Ventricle Normal LV size. Left ventricular systolic function is normal. The estimated ejection fraction is 60 %. No evidence for diastolic dysfunction. No regional wall motion abnormalities noted. Right Ventricle Normal RV size. Normal systolic function. Atria The left atrium is moderately enlarged. The right atrium is mildly enlarged. No doppler evidence for ASD. Bubble contrast study negative for right to left interatrial shunt. Mitral Valve There is no mitral annular calcification. Mild diffuse mitral valve thickening. Trivial mitral valve insufficiency. Tricuspid Valve Normal tricuspid valve. Trivial tricuspid valve insufficiency. Aortic Valve Trisinus/trileaflet aortic valve. Mild focal aortic valve calcification. Trivial aortic valve insufficiency. Pulmonic Valve The pulmonic valve is not well visualized. Trivial pulmonic valve insufficiency. Great Vessels Normal sized aortic root. Pericardium/Pleural No pericardial effusion. Medication Performed a rapid injection of agitated mix of 9 cc saline and 1cc air to assess for atrial septal defect. MMode/2D Measurements & Calculations LVIDd: 5.6 cm IVSd: 1.1 cm Ao root diam: 3.7 cm LVIDs: 3.7 cm LVPWd: 1.00 cm RVDd: 4.1 cm FS: 33.2 % LAV(MOD-bp): 57.8 ml LVAd ap4: 31.5 cm2 SV(MOD-sp4): 51.9 ml LAV(MOD-bp) Indexed: 28.5 ml/m2 EDV(MOD-sp4): 98.3 ml LAV(MOD-sp2): 34.1 ml EDV(sp4-el): 98.8 ml LAV(MOD-sp4): 88.3 ml LVAs ap4: 20.0 cm2 ESV(MOD-sp4): 46.4 ml ESV(sp4-el): 45.3 ml EF(MOD-sp4): 52.8 % EF(sp4-el): 54.2 % SV(sp4-el): 53.5 ml LA A4 area: 28.9 cm2 LA dimension(2D): 5.4 cm RA A4 area: 23.2 cm2 Doppler Measurements & Calculations MV E max neel: 55.3 cm/sec Lat Peak E' Neel: 8.6 cm/sec Med Peak E' Neel: 4.1 cm/sec MV A max neel: 69.8 cm/sec E/E' lat: 6.4 E/E' med: 13.6 MV E/A: 0.79 Ao V2 max: 169.1 cm/sec AI max neel: 394.4 cm/sec LV V1 max: 107.8 cm/sec Ao max P.4 mmHg AI max P.2 mmHg LV V1 max P.6 mmHg Ao V2 mean: 124.0 cm/sec Ao mean P.6 mmHg AI dec slope: 276.3 cm/sec2 Ao V2 VTI: 28.4 cm AI P1/2t: 418.2 msec PA V2 max: 68.9 cm/sec Interpretation Summary Left ventricular systolic function is normal. The estimated ejection fraction is 60 %. The left atrium is moderately enlarged. The right atrium is mildly enlarged. Mild diffuse mitral valve thickening. Trivial mitral valve insufficiency. Trivial tricuspid valve insufficiency. Mild focal aortic valve calcification. Trivial aortic valve insufficiency. Trivial pulmonic valve insufficiency. No evidence for diastolic dysfunction. Bubble contrast study negative for right to left interatrial shunt. 2D echocardiographic images obtained cannot exclude an extrinsic mass next to and partially impinging upon the left atrium. Consider further evaluation with Chest CT scan if clinically indicated. Ordering Physician: Fox Gee Referring Physician: Fox Gee Performed By: Jackelyn Becerril, [place], RVT
--- NOTE | 2018-10-29 15:26 | PCM.CON.CC ---
Problem List (1) Esophageal cancer Status: Chronic Qualifiers: Malignant neoplasm of esophagus location: lower third Qualified Code(s): C15.5 - Malignant neoplasm of lower third of esophagus (2) Dysphasia Status: Chronic (3) Hyperlipidemia Status: Chronic (4) History of DVT Status: Chronic (5) GERD Status: Chronic (6) BPH Status: Chronic (7) Alcohol abuse Status: Chronic Comment: Per family patient drinks about 3-4 beers per day (8) Atrial fibrillation Status: Chronic Comment: Following with Dr. Mello On Coumadin therapy. Reason for Consult Date of Consultation: 10/29/18 Reason for Consultation: CVA History of Present Illness: The patient is a 73 year old M with past medical history listed below, who presented to [facility] on 10/29/2018 secondary to a significant change in his speech that started approximately 8:45 AM. Patient reportedly had developed confusion and speech difficulty, but was able to follow commands per his family. Patient reportedly was of his usual health prior to onset of symptoms. In the emergency room, a stroke team was called. Patient went to CT scan and no bleed was noted. Patient was given TPA with complete resolution of findings. Per ER documentation, patient had aphasia, but no drift was noted. Total NIH scale was noted to be 3. TPA was started at 1042, approximately 2 hours after onset of symptoms. Upon evaluation in the ICU, patient was back to his baseline. Patient denied any neurologic deficits. Family at the bedside thought all neurologic deficits had been resolved. Patient has been noted to have a fever since administering TPA. No hematemesis or melena has been reported. Patient does not have a Harris and has only one peripheral IV. Patient denies any history of stroke in the past. Patient does have a history of esophageal cancer, for which she is undergoing aggressive therapy by Dr. Rangel. Patient does have a history of A. fib and was previously on Coumadin. This was changed to Lovenox secondary to dysphasia, but patient is reportedly not very compliant with taking it. Patient does have a Dobbhoff in place and states that this was changed from the right nares to the left nares on secondary to clogging. Patient does report that he has had sinus congestion and a productive cough, but no shortness of breath. Patient denies any history of smoking, but admits to drinking 3-4 beers per day. Patient is never had withdrawal previously. Patient reportedly has been tolerating liquids, but is using tube feeds for majority of nutrition. Patient denies any urinary symptoms. No night sweats have been reported. Review of systems otherwise negative x10 systems. Past Medical History Past Medical History (Chronic Problems): Chronic Problems Esophageal cancer (Chronic) Dysphasia (Chronic) Migraine (Chronic) Hyperlipidemia (Chronic) History of DVT (Chronic) GERD (Chronic) BPH (Chronic) Alcohol abuse (Chronic) Per family patient drinks about 3-4 beers per day Atrial fibrillation (Chronic) Following with Dr. Carcamo. On Coumadin therapy. Allergies No Known Allergies Allergy (Verified 09/10/18 11:33) Home Medications: Ambulatory Orders Medication Instructions Recorded Lactose-Reduced Food/Fiber 250 ml PO Q2H 10/29/18 [Isosource 1.5 Claus Liquid] Potassium Chloride 20 meq PO BID 10/29/18 Surgical History: noncontributory Smoking Status: Never smoker Tobacco Use: Non-smoker Alcohol: None Drugs: None - *Family History Maternal History Items: No pertinent history Review of Systems Comment: See HPI Objective: All imaging was personally reviewed and I agree with formal interpretation. - Physical Exam General: Alert, Oriented x3, Cooperative, No apparent distress, - - Appears stated age. No conversational dyspnea HEENT: Atraumatic, PERRLA, EOMI, Normocephalic, - - Dobbhoff noted in left nares Oral: Moist Mucosa, No Gingival or Mucosal Lesions/ Ulcerations, - - Thrush noted on posterior tongue Neck: Supple, No JVD, No Nodes, Trachea Midline Lungs: No rhonchi, No wheeze, No rales, Diminished Cardiovascular: Normal S1, Normal S2, No murmurs, Irregular Rate, No rub noted, No Gallop Abdomen: Bowel Sounds Present, Soft, Non Tender, Non-Distended Extremities: No clubbing, No cyanosis, No edema, Capillary Refill Less than 3 Seconds Skin: No rashes, No breakdown Musculoskeletal: No Tenderness to Palpation of Joints or Extremities Lymphatic: No Cervical, Supraclavicular, or Inguinal Adenopathy Neurological: Cranial nerves II-XII grossly intact, - - Patient with a slight left lower extremity drift on my exam. Sensation is intact. No dysarthria or aphasia noted. Psych/Mental Status: Alert and oriented to time, place, person, mood and affect Vital Signs Temp Pulse Resp BP Pulse Ox 37.7 C H 105 H 18 102/65 99 10/29/18 14:45 10/29/18 15:13 10/29/18 15:13 10/29/18 15:13 10/29/18 15:13 Oxygen Flow Rate (L/min) 2 Oxygen Delivery Method Nasal Cannula Weight: 80.3 kg Body Mass Index (BMI) 24.7 Finger Stick Blood Glucose 99 Laboratory Tests Past 24 Hrs 10/29/18 10/29/18 10/29/18 09:45 09:45 09:45 WBC 2.7 L RBC 3.41 L Hgb 10.8 L Hct 32.4 L MCV 95.0 H MCH 31.7 MCHC 33.3 RDW 14.2 RDW Differential 48.9 H Plt Count 107 L MPV 10.1 Immature Gran % (Auto) 2.600 H Neut % (Auto) 90.3 H Lymph % (Auto) 4.9 L Isabella % (Auto) 2.2 Eos % (Auto) 0.0 Baso % (Auto) 0.0 Absolute Neuts (auto) 2.4 Absolute Lymphs (auto) 0.13 L Total Counted Not Reportable Differential Comment COMMENT Diff Path Review February foll PT 14.0 INR 1.1 APTT 27.8 Sodium 135 L Potassium 3.8 Chloride 101 Carbon Dioxide 25.0 Anion Gap 9 BUN 17 Creatinine 0.79 Estim Creat Clear Calc 72.16 Est GFR (MDRD) Af Amer 124 Est GFR (MDRD) Non-Af 103 BUN/Creatinine Ratio 21.5 H Glucose 130 H Lactic Acid Calcium 8.0 L Troponin I 0.047 H Urine Color Urine Clarity Urine pH Ur Specific [place] Urine Protein Urine Glucose (UA) Urine Ketones Urine Occult Blood Urine Nitrite Urine Bilirubin Urine Urobilinogen Ur Leukocyte Esterase Urine RBC Urine WBC Ur Squamous Epith Cells Urine Bacteria Urine Mucus 10/29/18 10/29/18 10/29/18 11:50 13:17 14:58 WBC RBC Hgb Hct MCV MCH MCHC RDW RDW Differential Plt Count MPV Immature Gran % (Auto) Neut % (Auto) Lymph % (Auto) Isabella % (Auto) Eos % (Auto) Baso % (Auto) Absolute Neuts (auto) Absolute Lymphs (auto) Total Counted Differential Comment Diff Path Review PT INR APTT Sodium Potassium Chloride Carbon Dioxide Anion Gap BUN Creatinine Estim Creat Clear Calc Est GFR (MDRD) Af Amer Est GFR (MDRD) Non-Af BUN/Creatinine Ratio Glucose Lactic Acid 1.1 Calcium Troponin I Pending Urine Color Yellow Urine Clarity Clear Urine pH 7.0 Ur Specific [place] 1.010 Urine Protein 15 H Urine Glucose (UA) Normal Urine Ketones Negative Urine Occult Blood Negative Urine Nitrite Negative Urine Bilirubin Negative Urine Urobilinogen Normal Ur Leukocyte Esterase Negative Urine RBC 0 SEEN Urine WBC 0 SEEN Ur Squamous Epith Cells 0-5 SEEN Urine Bacteria RARE Urine Mucus RARE POC Glucose 10/29/18 09:52 POC Glucose 99 Clinical Impression(s) from Imaging Studies Brain CT 10/29/18 09:53 IMPRESSION: Chronic involutional changes of the brain. N.B. : The above information has been verbally conveyed by Addison Rogers MD to Maurice Wilde on 10/29/2018 10:24:08 (ET). Electronically Signed: Addison Rogers MD at 10:25 EST Tel [phone], Service support , Chest X-Ray 10/29/18 09:53 IMPRESSION: Focal area of increased markings in the right midlung. Follow-up is recommended. Electronically Signed: Addison Rogers MD at 10:27 EST Tel [phone], Service support , Head CTA 10/29/18 10:48 IMPRESSION: Normal [place] of [place] without a demonstrated aneurysm or hemodynamically significant stenosis. Electronically Signed: Mathew Mills MD at 12:37 EST , Service support , Neck CTA 10/29/18 10:48 IMPRESSION: Atherosclerotic plaque formation at the right carotid bifurcation causing between 50 and 69% stenosis. Electronically Signed: Addison Rogers MD at 13:15 EST Tel [phone], Service support , Assessment/Plan RECOMMENDATIONS: 1. Post TPA protocol 2. P.o. diet per speech recommendations 3. Okay to initiate tube feeds 4. Obtain sputum culture, initiate empiric antibiotics 5. Monitor blood counts 6. Wean oxygen as tolerated IMPRESSIONS: 1. Acute CVA status post TPA Patient appears to have complete resolution of aphasia following TPA. Patient does have a little bit of drift on the left lower extremity on my exam, but this was not noted initially. Patient is not complaining of any headache or bleeding complications. 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 Post TPA protocol. 2. Fever Unclear etiology at this time. Patient does report an intermittent productive cough and sinus congestion. Patient does have a Dobbhoff that is been in the left nares for almost 2 weeks. Patient may have an element of sinusitis. Will give patient empiric antibiotics for now, but not believe patient is in severe sepsis. Sputum culture will be ordered. No removal of Dobbhoff as this may require endoscopy for replacement. 3. Alcohol abuse/advanced age/esophageal tumor/BPH/GERD/history of migraine/hyperlipidemia/history of noncompliance Complicates care, management, recovery and prognosis. We will need to monitor patient closely for bleeding from esophageal tumor. Speech therapy is seeing the patient now. Defer p.o. intake to their recommendations. Patient can receive a equivalent tube feeds while in the hospital. Monitor patient for alcohol withdrawal type symptoms. Code Visit Inpatient E&M: 86692 Init Hosp L3
--- NOTE | 2018-10-29 15:31 | CASEMGMT ---
Copies of [facility], from 2006. POA lists son Deny as POA, this is also what was stated to admitting RN as POA. FABIO Espitia, [employer]
--- NOTE | 2018-10-29 15:34 | CON.PCM_ITS ---
Problem List (1) Esophageal cancer Status: Chronic Qualifiers: Malignant neoplasm of esophagus location: lower third Qualified Code(s): C15.5 - Malignant neoplasm of lower third of esophagus (2) Dysphasia Status: Chronic (3) Hyperlipidemia Status: Chronic (4) History of DVT Status: Chronic (5) GERD Status: Chronic (6) BPH Status: Chronic (7) Alcohol abuse Status: Chronic Comment: Per family patient drinks about 3-4 beers per day (8) Atrial fibrillation Status: Chronic Comment: Following with Dr. Mello On Coumadin therapy. Reason for Consult Date of Consultation: 10/29/18 Reason for Consultation: CVA History of Present Illness: The patient is a 73 year old M with past medical history listed below, who presented to [facility] on 10/29/2018 secondary to a significant change in his speech that started approximately 8:45 AM. Patient reportedly had developed confusion and speech difficulty, but was able to follow commands per his family. Patient reportedly was of his usual health prior to onset of symptoms. In the emergency room, a stroke team was called. Patient went to CT scan and no bleed was noted. Patient was given TPA with complete resolution of findings. Per ER documentation, patient had aphasia, but no drift was noted. Total NIH scale was noted to be 3. TPA was started at 1042, approximately 2 hours after onset of symptoms. Upon evaluation in the ICU, patient was back to his baseline. Patient denied any neurologic deficits. Family at the bedside thought all neurologic deficits had been resolved. Patient has been noted to have a fever since administering TPA. No hematemesis or melena has been reported. Patient does not have a Harris and has only one peripheral IV. Patient denies any history of stroke in the past. Patient does have a history of esophageal cancer, for which she is undergoing aggressive therapy by Dr. Rangel. Patient does have a history of A. fib and was previously on Coumadin. This was changed to Lovenox secondary to dysphasia, but patient is reportedly not very compliant with taking it. Patient does have a Dobbhoff in place and states that this was changed from the right nares to the left nares on secondary to clogging. Patient does report that he has had sinus congestion and a productive cough, but no shortness of breath. Patient denies any history of smoking, but admits to drinking 3-4 beers per day. Patient is never had withdrawal previously. Patient reportedly has been tolerating liquids, but is using tube feeds for majority of nutrition. Patient denies any urinary symptoms. No night sweats have been reported. Review of systems otherwise negative x10 systems. Past Medical History Past Medical History (Chronic Problems): Chronic Problems Esophageal cancer (Chronic) Dysphasia (Chronic) Migraine (Chronic) Hyperlipidemia (Chronic) History of DVT (Chronic) GERD (Chronic) BPH (Chronic) Alcohol abuse (Chronic) Per family patient drinks about 3-4 beers per day Atrial fibrillation (Chronic) Following with Dr. Carcamo. On Coumadin therapy. Allergies No Known Allergies Allergy (Verified 09/10/18 11:33) Home Medications: Ambulatory Orders Medication Instructions Recorded Lactose-Reduced Food/Fiber 250 ml PO Q2H 10/29/18 [Isosource 1.5 Claus Liquid] Potassium Chloride 20 meq PO BID 10/29/18 Surgical History: noncontributory Smoking Status: Never smoker Tobacco Use: Non-smoker Alcohol: None Drugs: None - *Family History Maternal History Items: No pertinent history Review of Systems Comment: See HPI Objective: All imaging was personally reviewed and I agree with formal interpretation. - Physical Exam General: Alert, Oriented x3, Cooperative, No apparent distress, - - Appears stated age. No conversational dyspnea HEENT: Atraumatic, PERRLA, EOMI, Normocephalic, - - Dobbhoff noted in left nares Oral: Moist Mucosa, No Gingival or Mucosal Lesions/ Ulcerations, - - Thrush noted on posterior tongue Neck: Supple, No JVD, No Nodes, Trachea Midline Lungs: No rhonchi, No wheeze, No rales, Diminished Cardiovascular: Normal S1, Normal S2, No murmurs, Irregular Rate, No rub noted, No Gallop Abdomen: Bowel Sounds Present, Soft, Non Tender, Non-Distended Extremities: No clubbing, No cyanosis, No edema, Capillary Refill Less than 3 Seconds Skin: No rashes, No breakdown Musculoskeletal: No Tenderness to Palpation of Joints or Extremities Lymphatic: No Cervical, Supraclavicular, or Inguinal Adenopathy Neurological: Cranial nerves II-XII grossly intact, - - Patient with a slight left lower extremity drift on my exam. Sensation is intact. No dysarthria or aphasia noted. Psych/Mental Status: Alert and oriented to time, place, person, mood and affect Vital Signs Temp Pulse Resp BP Pulse Ox 37.7 C H 105 H 18 102/65 99 10/29/18 14:45 10/29/18 15:13 10/29/18 15:13 10/29/18 15:13 10/29/18 15:13 Oxygen Flow Rate (L/min) 2 Oxygen Delivery Method Nasal Cannula Weight: 80.3 kg Body Mass Index (BMI) 24.7 Finger Stick Blood Glucose 99 Laboratory Tests Past 24 Hrs 10/29/18 10/29/18 10/29/18 09:45 09:45 09:45 WBC 2.7 L RBC 3.41 L Hgb 10.8 L Hct 32.4 L MCV 95.0 H MCH 31.7 MCHC 33.3 RDW 14.2 RDW Differential 48.9 H Plt Count 107 L MPV 10.1 Immature Gran % (Auto) 2.600 H Neut % (Auto) 90.3 H Lymph % (Auto) 4.9 L Boyd % (Auto) 2.2 Eos % (Auto) 0.0 Baso % (Auto) 0.0 Absolute Neuts (auto) 2.4 Absolute Lymphs (auto) 0.13 L Total Counted Not Reportable Differential Comment COMMENT Diff Path Review February foll PT 14.0 INR 1.1 APTT 27.8 Sodium 135 L Potassium 3.8 Chloride 101 Carbon Dioxide 25.0 Anion Gap 9 BUN 17 Creatinine 0.79 Estim Creat Clear Calc 72.16 Est GFR (MDRD) Af Amer 124 Est GFR (MDRD) Non-Af 103 BUN/Creatinine Ratio 21.5 H Glucose 130 H Lactic Acid Calcium 8.0 L Troponin I 0.047 H Urine Color Urine Clarity Urine pH Ur Specific [place] Urine Protein Urine Glucose (UA) Urine Ketones Urine Occult Blood Urine Nitrite Urine Bilirubin Urine Urobilinogen Ur Leukocyte Esterase Urine RBC Urine WBC Ur Squamous Epith Cells Urine Bacteria Urine Mucus 10/29/18 10/29/18 10/29/18 11:50 13:17 14:58 WBC RBC Hgb Hct MCV MCH MCHC RDW RDW Differential Plt Count MPV Immature Gran % (Auto) Neut % (Auto) Lymph % (Auto) [place] % (Auto) Eos % (Auto) Baso % (Auto) Absolute Neuts (auto) Absolute Lymphs (auto) Total Counted Differential Comment Diff Path Review PT INR APTT Sodium Potassium Chloride Carbon Dioxide Anion Gap BUN Creatinine Estim Creat Clear Calc Est GFR (MDRD) Af Amer Est GFR (MDRD) Non-Af BUN/Creatinine Ratio Glucose Lactic Acid 1.1 Calcium Troponin I Pending Urine Color Yellow Urine Clarity Clear Urine pH 7.0 Ur Specific [place] 1.010 Urine Protein 15 H Urine Glucose (UA) Normal Urine Ketones Negative Urine Occult Blood Negative Urine Nitrite Negative Urine Bilirubin Negative Urine Urobilinogen Normal Ur Leukocyte Esterase Negative Urine RBC 0 SEEN Urine WBC 0 SEEN Ur Squamous Epith Cells 0-5 SEEN Urine Bacteria RARE Urine Mucus RARE POC Glucose 10/29/18 09:52 POC Glucose 99 Clinical Impression(s) from Imaging Studies Brain CT 10/29/18 09:53 IMPRESSION: Chronic involutional changes of the brain. N.B. : The above information has been verbally conveyed by Addison Rogers MD to Maurice Wilde on 10/29/2018 10:24:08 (ET). Electronically Signed: Addison Rogers MD at 10:25 EST Tel [phone], Service support , Chest X-Ray 10/29/18 09:53 IMPRESSION: Focal area of increased markings in the right midlung. Follow-up is recommended. Electronically Signed: Addison Rogers MD at 10:27 EST Tel [phone], Service support , Head CTA 10/29/18 10:48 IMPRESSION: Normal [place] without a demonstrated aneurysm or hemodynamically significant stenosis. Electronically Signed: Mathew Mills MD at 12:37 EST , Service support , Neck CTA 10/29/18 10:48 IMPRESSION: Atherosclerotic plaque formation at the right carotid bifurcation causing between 50 and 69% stenosis. Electronically Signed: Addison Rogers MD at 13:15 EST Tel [phone], Service support , Assessment/Plan RECOMMENDATIONS: 1. Post TPA protocol 2. P.o. diet per speech recommendations 3. Okay to initiate tube feeds 4. Obtain sputum culture, initiate empiric antibiotics 5. Monitor blood counts 6. Wean oxygen as tolerated IMPRESSIONS: 1. Acute CVA status post TPA Patient appears to have complete resolution of aphasia following TPA. Patient does have a little bit of drift on the left lower extremity on my exam, but this was not noted initially. Patient is not complaining of any headache or bleeding complications. 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 Post TPA protocol. 2. Fever Unclear etiology at this time. Patient does report an intermittent productive cough and sinus congestion. Patient does have a Dobbhoff that is been in the left nares for almost 2 weeks. Patient may have an element of sinusitis. Will give patient empiric antibiotics for now, but not believe patient is in severe sepsis. Sputum culture will be ordered. No removal of Dobbhoff as this may require endoscopy for replacement. 3. Alcohol abuse/advanced age/esophageal tumor/BPH/GERD/history of migraine/hyperlipidemia/history of noncompliance Complicates care, management, recovery and prognosis. We will need to monitor patient closely for bleeding from esophageal tumor. Speech therapy is seeing the patient now. Defer p.o. intake to their recommendations. Patient can receive a equivalent tube feeds while in the hospital. Monitor patient for alcohol withdrawal type symptoms. Code Visit Inpatient E&M: 34801 Init Hosp L3
[2018-10-29] MEDS: 0.9% NaCl Peripheral Flush Adult/Peds IV ×2 (16:23→19:29)
[2018-10-29] MEDS: 0.9% Normal Saline 1,000 ML 100 ML IV (16:25)
[2018-10-29] MEDS: NYSTATIN 500,000 UNIT/5 ML UDC 500000 UNIT PO ×2 (19:29→21:09)
[2018-10-29] MEDS: MELATONIN 10 MG TABLET 5 MG PO (22:05)
[2018-10-30] VITALS (25 sets, daily range): BP systolic 91–137; BP diastolic 53–90; PULSE 88–204; RESP 15–27; TEMP 37.2–38.5; O2SAT 73–100; BMI 24.7
[2018-10-30] MEDS: 0.9% Normal Saline 1,000 ML 100 ML IV (02:22)
[2018-10-30 04:44] LABS: Absolute Lymphocyte Count 0.14 X10^3/ul (0.83-4.51); Absolute Neutrophil Count 1.7 X10^3/uL (2.0-7.7); Eosinophil# 0.01 X10^3/uL; Eosinophils% 0.5 % (0-5); Hemoglobin 8.4 g/dl (13.0-16.5); Lymphocyte # 0.14 X10^3/ul (4.0); Lymphocyte % 7.1 % (19-41); Mean Corp Hgb Conc 33.6 g/gl (32-36); Mean Corpuscular Hgb 31.8 pg (27.0-32.0); Mean Corpuscular Volume 94.7 fL (80-94); Mean Platelet Vol. 9.2 fl (6.2-12.0); Monocyte# 0.08 X10^3/uL; Monocyte% 4.1 % (0-10); Neutrophil # 1.72 X10^3/uL (2.7-7.7); Neutrophil % 87.3 % (47-70); Platelet Count 71 K/mm3 (150-450); RBC Distribution Width CV 14.3 % (11.6-14.6); RBC Distribution Width SD 49.5 fl (35.1-43.9); Red Blood Count 2.64 M/mm3 (4.6-6.2)
[2018-10-30 04:47] LABS: Anion Gap 7 (5-15); BUN 14 mg/dL (7-18); BUN/Creat Ratio 24.2 RATIO (10-20); Calcium,Total 7.8 mg/dL (8.5-10.1); Chloride 104 mmol/L (98-107); Cholesterol 117 mg/dL (200); Creatinine, Serum 0.58 mg/dL (0.70-1.30); EST Glomerular Filtration Rate 147 mL/min (>60); Est Glom Filt Rate - Afr Amer 178 mL/min (>60); Estimated Creatinine Clearance 72.16 ml/min; Glucose 97 mg/dL (74-106); High Density Lipoprotein 32 mg/dL; Potassium 3.7 mmol/L (3.5-5.1); Sodium Level 137 mmol/L (136-145); Triglycerides 110 mg/dL; Very Low Density Lipoprotein 22 mg/dL (5-40)
[2018-10-30 04:49] LABS: Differential Indicated SCAN CRITERIA MET; POSITIVE COUNT NO; POSITIVE DIFFERENTIAL YES; POSITIVE MORPHOLOGY YES
[2018-10-30 06:32] LABS: Differential Comment SCANNED; Platelet Estimate MOD DEC (ADEQ)
--- NOTE | 2018-10-30 06:42 | PCM.PN.INT ---
Subjective: Patient did well overnight. There were some concerns for decreased blood pressure, but no interventions were required. Patient did have a fever. Nursing reports no active bleeding such as epistaxis, hemoptysis, melena or hematochezia. Patient did have some difficulty producing urine, but no Harris had to be placed. Patient denies any recurrence of symptoms similar to presentation. General: Alert, Oriented x3, Cooperative, No apparent distress, - - No conversational dyspnea noted HEENT: Atraumatic, PERRLA, EOMI, Normocephalic, - - No scleral icterus or injection noted. NG in place Oral: Moist Mucosa, No Gingival or Mucosal Lesions/ Ulcerations Neck: Supple, No JVD, No Nodes, Trachea Midline Lungs: No rhonchi, No wheeze, No rales, Diminished, - - Symmetric expansion. No dullness to percussion. Cardiovascular: Normal S1, Normal S2, No murmurs, Irregular Rate, No rub noted, No Gallop Abdomen: Bowel Sounds Present, Soft, Non Tender, Non-Distended Extremities: No clubbing, No cyanosis, No edema Skin: No rashes, No breakdown Musculoskeletal: No Tenderness to Palpation of Joints or Extremities Lymphatic: No Cervical, Supraclavicular, or Inguinal Adenopathy Neurological: Cranial nerves II-XII grossly intact, Deep Tendon Reflexes 2+/4 and Symmetrical, - - Still has slight drift of left lower extremity, but stable from yesterday. No aphasia or dysarthria appreciated. Psych/Mental Status: Alert and oriented to time, place, person, mood and affect Vital Signs Temp Pulse Resp BP Pulse Ox 37.2 C 95 16 95/60 100 10/30/18 00:00 10/30/18 06:00 10/30/18 06:00 10/30/18 06:00 10/30/18 06:00 Oxygen Flow Rate (L/min) 2 Oxygen Delivery Method Room Air Weight: 81.5 kg Body Mass Index (BMI) 24.7 Finger Stick Blood Glucose 99 Intake and Output for Last 24 Hours 10/28/18 10/29/18 10/30/18 23:59 23:59 23:59 Intake Total 742 / 742 803 / 803 Output Total 350 / 350 225 / 225 Balance 392 / 392 578 / 578 Labs (Last 48 Hours) 0110/29/18 10/29/18 09:45 09:45 09:45 WBC 2.7 L RBC 3.41 L Hgb 10.8 L Hct 32.4 L MCV 95.0 H MCH 31.7 MCHC 33.3 RDW 14.2 RDW Differential 48.9 H Plt Count 107 L MPV 10.1 Immature Gran % (Auto) 2.600 H Neut % (Auto) 90.3 H Lymph % (Auto) 4.9 L [place] % (Auto) 2.2 Eos % (Auto) 0.0 Baso % (Auto) 0.0 Absolute Neuts (auto) 2.4 Absolute Lymphs (auto) 0.13 L Total Counted Not Reportable Differential Comment COMMENT Diff Path Review May foll Platelet Estimate PT 14.0 INR 1.1 APTT 27.8 Sodium 135 L Potassium 3.8 Chloride 101 Carbon Dioxide 25.0 Anion Gap 9 BUN 17 Creatinine 0.79 Estim Creat Clear Calc 72.16 Est GFR (MDRD) Af Amer 124 Est GFR (MDRD) Non-Af 103 BUN/Creatinine Ratio 21.5 H Glucose 130 H Lactic Acid Calcium 8.0 L Troponin I 0.047 H Triglycerides Cholesterol LDL Cholesterol VLDL Cholesterol HDL Cholesterol Urine Color Urine Clarity Urine pH Ur Specific [place] Urine Protein Urine Glucose (UA) Urine Ketones Urine Occult Blood Urine Nitrite Urine Bilirubin Urine Urobilinogen Ur Leukocyte Esterase Urine RBC Urine WBC Ur Squamous Epith Cells Urine Bacteria Urine Mucus POC Glucose 10/29/18 10/29/18 10/29/18 09:52 11:50 13:17 WBC RBC Hgb Hct MCV MCH MCHC RDW RDW Differential Plt Count MPV Immature Gran % (Auto) Neut % (Auto) Lymph % (Auto) [place] % (Auto) Eos % (Auto) Baso % (Auto) Absolute Neuts (auto) Absolute Lymphs (auto) Total Counted Differential Comment Diff Path Review Platelet Estimate PT INR APTT Sodium Potassium Chloride Carbon Dioxide Anion Gap BUN Creatinine Estim Creat Clear Calc Est GFR (MDRD) Af Amer Est GFR (MDRD) Non-Af BUN/Creatinine Ratio Glucose Lactic Acid 1.1 Calcium Troponin I Triglycerides Cholesterol LDL Cholesterol VLDL Cholesterol HDL Cholesterol Urine Color Yellow Urine Clarity Clear Urine pH 7.0 Ur Specific [place] 1.010 Urine Protein 15 H Urine Glucose (UA) Normal Urine Ketones Negative Urine Occult Blood Negative Urine Nitrite Negative Urine Bilirubin Negative Urine Urobilinogen Normal Ur Leukocyte Esterase Negative Urine RBC 0 SEEN Urine WBC 0 SEEN Ur Squamous Epith Cells 0-5 SEEN Urine Bacteria RARE Urine Mucus RARE POC Glucose 99 10/29/18 10/30/18 10/30/18 14:58 04:20 04:20 WBC 2.0 L RBC 2.64 L Hgb 8.4 L Hct 25.0 L MCV 94.7 H MCH 31.8 MCHC 33.6 RDW 14.3 RDW Differential 49.5 H Plt Count 71 L MPV 9.2 Immature Gran % (Auto) 1.000 H Neut % (Auto) 87.3 H Lymph % (Auto) 7.1 L [place] % (Auto) 4.1 Eos % (Auto) 0.5 Baso % (Auto) 0.0 Absolute Neuts (auto) 1.7 L Absolute Lymphs (auto) 0.14 L Total Counted Not Reportable Differential Comment SCANNED Diff Path Review Platelet Estimate MOD DEC PT INR APTT Sodium 137 Potassium 3.7 Chloride 104 Carbon Dioxide 26.0 Anion Gap 7 BUN 14 Creatinine 0.58 L Estim Creat Clear Calc 72.16 Est GFR (MDRD) Af Amer 178 Est GFR (MDRD) Non-Af 147 BUN/Creatinine Ratio 24.2 H Glucose 97 Lactic Acid Calcium 7.8 L Troponin I 0.072 H Triglycerides 110 Cholesterol 117 LDL Cholesterol 63 VLDL Cholesterol 22 HDL Cholesterol 32 L Urine Color Urine Clarity Urine pH Ur Specific [place] Urine Protein Urine Glucose (UA) Urine Ketones Urine Occult Blood Urine Nitrite Urine Bilirubin Urine Urobilinogen Ur Leukocyte Esterase Urine RBC Urine WBC Ur Squamous Epith Cells Urine Bacteria Urine Mucus POC Glucose Clinical Impression(s) from Imaging Studies Brain CT 10/29/18 09:53 IMPRESSION: Chronic involutional changes of the brain. N.B. : The above information has been verbally conveyed by Addison Rogers MD to Maurice Keydarron on 10/29/2018 10:24:08 (ET). Electronically Signed: Addison Rogers MD at 10:25 EST Tel [phone], Service support , Chest X-Ray 10/29/18 09:53 IMPRESSION: Focal area of increased markings in the right midlung. Follow-up is recommended. Electronically Signed: Addison Rogers MD at 10:27 EST Tel [phone], Service support , Head CTA 10/29/18 10:48 IMPRESSION: Normal [place] without a demonstrated aneurysm or hemodynamically significant stenosis. Electronically Signed: Mathew Mills MD at 12:37 EST , Service support , Neck CTA 10/29/18 10:48 IMPRESSION: Atherosclerotic plaque formation at the right carotid bifurcation causing between 50 and 69% stenosis. Electronically Signed: Addison Rogers MD at 13:15 EST Tel [phone], Service support , Medical Necessity - Tobacco Use Smoking Status: Never smoker Tobacco Use: Non-smoker Assessment/Plan All Active Problems CVA (cerebral vascular accident) (Acute) RECOMMENDATIONS: 1. Post TPA protocol 2. P.o. diet per speech recommendations 3. Continue tube feeds 4. Continue empiric antibiotics, may be transition to p.o. if discharged 5. Monitor blood counts 6. Possible transfer out of the intensive care unit following 24-hour imaging IMPRESSIONS: 1. Acute CVA status post TPA Patient appears to have complete resolution of aphasia following TPA. Patient appears to have completely resolved from TPA. Repeat head imaging due at approximately 11 AM. Patient is not complaining of any headache or bleeding complications. 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 Post TPA protocol. 2. Fever Unclear etiology at this time. Patient does report an intermittent productive cough and sinus congestion. Patient does have a Dobbhoff that is been in the left nares for almost 2 weeks. Patient may have an element of sinusitis. Will give patient empiric antibiotics for now, but not believe patient is in severe sepsis. Sputum culture will be ordered. No removal of Dobbhoff as this may require endoscopy for replacement. 3. Alcohol abuse/advanced age/esophageal tumor/BPH/GERD/history of migraine/hyperlipidemia/history of noncompliance Complicates care, management, recovery and prognosis. We will need to monitor patient closely for bleeding from esophageal tumor. Speech therapy is seeing the patient now. Defer p.o. intake to their recommendations. Patient can receive a equivalent tube feeds while in the hospital. Monitor patient for alcohol withdrawal type symptoms. Patient does appear to have an element of pancytopenia secondary to chemotherapy. Code Visit Inpatient E&M: 46405 Subs Hosp L3
--- NOTE | 2018-10-30 06:48 | PN_ITS ---
Subjective: Patient did well overnight. There were some concerns for decreased blood pressure, but no interventions were required. Patient did have a fever. Nursing reports no active bleeding such as epistaxis, hemoptysis, melena or hematochezia. Patient did have some difficulty producing urine, but no Harris had to be placed. Patient denies any recurrence of symptoms similar to presentation. General: Alert, Oriented x3, Cooperative, No apparent distress, - - No conversational dyspnea noted HEENT: Atraumatic, PERRLA, EOMI, Normocephalic, - - No scleral icterus or injection noted. NG in place Oral: Moist Mucosa, No Gingival or Mucosal Lesions/ Ulcerations Neck: Supple, No JVD, No Nodes, Trachea Midline Lungs: No rhonchi, No wheeze, No rales, Diminished, - - Symmetric expansion. No dullness to percussion. Cardiovascular: Normal S1, Normal S2, No murmurs, Irregular Rate, No rub noted, No Gallop Abdomen: Bowel Sounds Present, Soft, Non Tender, Non-Distended Extremities: No clubbing, No cyanosis, No edema Skin: No rashes, No breakdown Musculoskeletal: No Tenderness to Palpation of Joints or Extremities Lymphatic: No Cervical, Supraclavicular, or Inguinal Adenopathy Neurological: Cranial nerves II-XII grossly intact, Deep Tendon Reflexes 2+/4 and Symmetrical, - - Still has slight drift of left lower extremity, but stable from yesterday. No aphasia or dysarthria appreciated. Psych/Mental Status: Alert and oriented to time, place, person, mood and affect Vital Signs Temp Pulse Resp BP Pulse Ox 37.2 C 95 16 95/60 100 10/30/18 00:00 10/30/18 06:00 10/30/18 06:00 10/30/18 06:00 10/30/18 06:00 Oxygen Flow Rate (L/min) 2 Oxygen Delivery Method Room Air Weight: 81.5 kg Body Mass Index (BMI) 24.7 Finger Stick Blood Glucose 99 Intake and Output for Last 24 Hours 10/28/18 10/29/18 10/30/18 23:59 23:59 23:59 Intake Total 742 / 742 803 / 803 Output Total 350 / 350 225 / 225 Balance 392 / 392 578 / 578 Labs (Last 48 Hours) 0110/29/18 10/29/18 09:45 09:45 09:45 WBC 2.7 L RBC 3.41 L Hgb 10.8 L Hct 32.4 L MCV 95.0 H MCH 31.7 MCHC 33.3 RDW 14.2 RDW Differential 48.9 H Plt Count 107 L MPV 10.1 Immature Gran % (Auto) 2.600 H Neut % (Auto) 90.3 H Lymph % (Auto) 4.9 L [place] % (Auto) 2.2 Eos % (Auto) 0.0 Baso % (Auto) 0.0 Absolute Neuts (auto) 2.4 Absolute Lymphs (auto) 0.13 L Total Counted Not Reportable Differential Comment COMMENT Diff Path Review May foll Platelet Estimate PT 14.0 INR 1.1 APTT 27.8 Sodium 135 L Potassium 3.8 Chloride 101 Carbon Dioxide 25.0 Anion Gap 9 BUN 17 Creatinine 0.79 Estim Creat Clear Calc 72.16 Est GFR (MDRD) Af Amer 124 Est GFR (MDRD) Non-Af 103 BUN/Creatinine Ratio 21.5 H Glucose 130 H Lactic Acid Calcium 8.0 L Troponin I 0.047 H Triglycerides Cholesterol LDL Cholesterol VLDL Cholesterol HDL Cholesterol Urine Color Urine Clarity Urine pH Ur Specific [place] Urine Protein Urine Glucose (UA) Urine Ketones Urine Occult Blood Urine Nitrite Urine Bilirubin Urine Urobilinogen Ur Leukocyte Esterase Urine RBC Urine WBC Ur Squamous Epith Cells Urine Bacteria Urine Mucus POC Glucose 10/29/18 10/29/18 10/29/18 09:52 11:50 13:17 WBC RBC Hgb Hct MCV MCH MCHC RDW RDW Differential Plt Count MPV Immature Gran % (Auto) Neut % (Auto) Lymph % (Auto) [place] % (Auto) Eos % (Auto) Baso % (Auto) Absolute Neuts (auto) Absolute Lymphs (auto) Total Counted Differential Comment Diff Path Review Platelet Estimate PT INR APTT Sodium Potassium Chloride Carbon Dioxide Anion Gap BUN Creatinine Estim Creat Clear Calc Est GFR (MDRD) Af Amer Est GFR (MDRD) Non-Af BUN/Creatinine Ratio Glucose Lactic Acid 1.1 Calcium Troponin I Triglycerides Cholesterol LDL Cholesterol VLDL Cholesterol HDL Cholesterol Urine Color Yellow Urine Clarity Clear Urine pH 7.0 Ur Specific [place] 1.010 Urine Protein 15 H Urine Glucose (UA) Normal Urine Ketones Negative Urine Occult Blood Negative Urine Nitrite Negative Urine Bilirubin Negative Urine Urobilinogen Normal Ur Leukocyte Esterase Negative Urine RBC 0 SEEN Urine WBC 0 SEEN Ur Squamous Epith Cells 0-5 SEEN Urine Bacteria RARE Urine Mucus RARE POC Glucose 99 10/29/18 10/30/18 10/30/18 14:58 04:20 04:20 WBC 2.0 L RBC 2.64 L Hgb 8.4 L Hct 25.0 L MCV 94.7 H MCH 31.8 MCHC 33.6 RDW 14.3 RDW Differential 49.5 H Plt Count 71 L MPV 9.2 Immature Gran % (Auto) 1.000 H Neut % (Auto) 87.3 H Lymph % (Auto) 7.1 L [place] % (Auto) 4.1 Eos % (Auto) 0.5 Baso % (Auto) 0.0 Absolute Neuts (auto) 1.7 L Absolute Lymphs (auto) 0.14 L Total Counted Not Reportable Differential Comment SCANNED Diff Path Review Platelet Estimate MOD DEC PT INR APTT Sodium 137 Potassium 3.7 Chloride 104 Carbon Dioxide 26.0 Anion Gap 7 BUN 14 Creatinine 0.58 L Estim Creat Clear Calc 72.16 Est GFR (MDRD) Af Amer 178 Est GFR (MDRD) Non-Af 147 BUN/Creatinine Ratio 24.2 H Glucose 97 Lactic Acid Calcium 7.8 L Troponin I 0.072 H Triglycerides 110 Cholesterol 117 LDL Cholesterol 63 VLDL Cholesterol 22 HDL Cholesterol 32 L Urine Color Urine Clarity Urine pH Ur Specific [place] Urine Protein Urine Glucose (UA) Urine Ketones Urine Occult Blood Urine Nitrite Urine Bilirubin Urine Urobilinogen Ur Leukocyte Esterase Urine RBC Urine WBC Ur Squamous Epith Cells Urine Bacteria Urine Mucus POC Glucose Clinical Impression(s) from Imaging Studies Brain CT 10/29/18 09:53 IMPRESSION: Chronic involutional changes of the brain. N.B. : The above information has been verbally conveyed by Addison Rogers MD to Maurice Keydarron on 10/29/2018 10:24:08 (ET). Electronically Signed: Addison Rogers MD at 10:25 EST Tel [phone], Service support , Chest X-Ray 10/29/18 09:53 IMPRESSION: Focal area of increased markings in the right midlung. Follow-up is recommended. Electronically Signed: Addison Rogers MD at 10:27 EST Tel [phone], Service support , Head CTA 10/29/18 10:48 IMPRESSION: Normal [place] without a demonstrated aneurysm or hemodynamically significant stenosis. Electronically Signed: Mathew Mills MD at 12:37 EST , Service support , Neck CTA 10/29/18 10:48 IMPRESSION: Atherosclerotic plaque formation at the right carotid bifurcation causing between 50 and 69% stenosis. Electronically Signed: Addison Rogers MD at 13:15 EST Tel [phone], Service support , Medical Necessity - Tobacco Use Smoking Status: Never smoker Tobacco Use: Non-smoker Assessment/Plan All Active Problems CVA (cerebral vascular accident) (Acute) RECOMMENDATIONS: 1. Post TPA protocol 2. P.o. diet per speech recommendations 3. Continue tube feeds 4. Continue empiric antibiotics, may be transition to p.o. if discharged 5. Monitor blood counts 6. Possible transfer out of the intensive care unit following 24-hour imaging IMPRESSIONS: 1. Acute CVA status post TPA Patient appears to have complete resolution of aphasia following TPA. Patient appears to have completely resolved from TPA. Repeat head imaging due at approximately 11 AM. Patient is not complaining of any headache or bleeding complications. 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 Post TPA protocol. 2. Fever Unclear etiology at this time. Patient does report an intermittent productive cough and sinus congestion. Patient does have a Dobbhoff that is been in the left nares for almost 2 weeks. Patient may have an element of sinusitis. Will give patient empiric antibiotics for now, but not believe patient is in severe sepsis. Sputum culture will be ordered. No removal of Dobbhoff as this may require endoscopy for replacement. 3. Alcohol abuse/advanced age/esophageal tumor/BPH/GERD/history of migraine/hyperlipidemia/history of noncompliance Complicates care, management, recovery and prognosis. We will need to monitor patient closely for bleeding from esophageal tumor. Speech therapy is seeing the patient now. Defer p.o. intake to their recommendations. Patient can receive a equivalent tube feeds while in the hospital. Monitor patient for alcohol withdrawal type symptoms. Patient does appear to have an element of pancytopenia secondary to chemotherapy. Code Visit Inpatient E&M: 33122 Subs Hosp L3
--- NOTE | 2018-10-30 08:22 | PCM.PN.HOSP ---
Patient Problems: Active and Suspected Problems CVA (cerebral vascular accident) (Acute) Subjective: Doing well speech is back to normal no weakness or numbness in any extremity. He is wanting to go home today Vitals/I&O's: Vital Signs Temp Pulse Resp BP Pulse Ox 98.9 F 95 16 95/60 100 10/30/18 00:00 10/30/18 06:00 10/30/18 06:00 10/30/18 06:00 10/30/18 06:50 Oxygen Flow Rate (L/min) 2 Oxygen Delivery Method Room Air Weight: 179 lb 10.828 oz Body Mass Index (BMI) 24.7 Finger Stick Blood Glucose 99 Intake and Output for Last 24 Hours 10/28/18 10/29/18 10/30/18 23:59 23:59 23:59 Intake Total 742 / 742 803 / 803 Output Total 350 / 350 225 / 225 Balance 392 / 392 578 / 578 General: Alert, Oriented x3, Cooperative, No apparent distress HEENT: Atraumatic, PERRLA, EOMI, Normocephalic, - - NG tube in place Oral: Dry Mucosa Neck: Supple, No JVD, Trachea Midline Lungs: Clear to auscultation, Normal air movement, No rhonchi, No wheeze, No rales Cardiovascular: Regular rate, Regular Rhythm, Normal S1, Normal S2, No murmurs, No rub noted, No Gallop Abdomen: Soft, Non-Distended, No Hepato-splenomegaly Extremities: No edema, Capillary Refill Less than 3 Seconds Skin: No rashes, No breakdown Neurological: Neuro grossly intact, Sensory exam intact to light touch and pain, speech normal, cranial nerves intact Psych/Mental Status: Normal Affect, Appropriate Laboratory Results 10/29/18 09:45: WBC 2.7 L, RBC 3.41 L, Hgb 10.8 L, Hct 32.4 L, MCV 95.0 H, MCH 31.7, MCHC 33.3, RDW 14.2, RDW Differential 48.9 H, Plt Count 107 L, MPV 10.1, Immature Gran % (Auto) 2.600 H, Neut % (Auto) 90.3 H, Lymph % (Auto) 4.9 L, [place] % (Auto) 2.2, Eos % (Auto) 0.0, Baso % (Auto) 0.0, Absolute Neuts (auto) 2.4, Absolute Lymphs (auto) 0.13 L, Total Counted Not Reportable, Differential Comment COMMENT, Diff Path Review February10/29/18 09:45: PT 14.0, INR 1.1, APTT 27.8 10/29/18 09:45: Sodium 135 L, Potassium 3.8, Chloride 101, Carbon Dioxide 25.0, Anion Gap 9, BUN 17, Creatinine 0.79, Estim Creat Clear Calc 72.16, Est GFR (MDRD) Af Amer 124, Est GFR (MDRD) Non-Af 103, BUN/Creatinine Ratio 21.5 H, Glucose 130 H, Calcium 8.0 L, Troponin I 0.047 H 10/29/18 09:52: POC Glucose 99 10/29/18 11:50: Urine Color Yellow, Urine Clarity Clear, Urine pH 7.0, Ur Specific [place] 1.010, Urine Protein 15 H, Urine Glucose (UA) Normal, Urine Ketones Negative, Urine Occult Blood Negative, Urine Nitrite Negative, Urine Bilirubin Negative, Urine Urobilinogen Normal, Ur Leukocyte Esterase Negative, Urine RBC 0 SEEN, Urine WBC 0 SEEN, Ur Squamous Epith Cells 0-5 SEEN, Urine Bacteria RARE, Urine Mucus RARE 10/29/18 13:17: Lactic Acid 1.1 10/29/18 14:58: Troponin I 0.072 H 10/30/18 04:20: WBC 2.0 L, RBC 2.64 L, Hgb 8.4 L, Hct 25.0 L, MCV 94.7 H, MCH 31.8, MCHC 33.6, RDW 14.3, RDW Differential 49.5 H, Plt Count 71 L, MPV 9.2, Immature Gran % (Auto) 1.000 H, Neut % (Auto) 87.3 H, Lymph % (Auto) 7.1 L, [place] % (Auto) 4.1, Eos % (Auto) 0.5, Baso % (Auto) 0.0, Absolute Neuts (auto) 1.7 L, Absolute Lymphs (auto) 0.14 L, Total Counted Not Reportable, Differential Comment SCANNED, Platelet Estimate MOD 10/30/18 04:20: Sodium 137, Potassium 3.7, Chloride 104, Carbon Dioxide 26.0, Anion Gap 7, BUN 14, Creatinine 0.58 L, Estim Creat Clear Calc 72.16, Est GFR (MDRD) Af Amer 178, Est GFR (MDRD) Non-Af 147, BUN/Creatinine Ratio 24.2 H, Glucose 97, Calcium 7.8 L, Triglycerides 110, Cholesterol 117, LDL Cholesterol 63, VLDL Cholesterol 22, HDL Cholesterol 32 L Current Medications Atorvastatin Calcium (Lipitor) 80 mg PO QHS [facility] Last Admin: 10/29/18 21:09 Dose: Not Given Hydralazine HCl (Apresoline Iv) 5 mg IV Q30M PRN PRN Reason: sbp > 220/120 Sodium Chloride () 500 mls @ 999 mls/hr IV .Q31M ONE Last Admin: 10/29/18 10:08 Dose: 999 mls/hr Sodium Chloride () 250 mls @ 15 mls/hr IV .[id number] PRN PRN Reason: SALINE FLUSH Ceftriaxone Sodium (Rocephin) 1 gm in 50 mls @ 100 mls/hr IV Q24 [facility] Labetalol HCl (Trandate) 10 mg IV Q10M PRN PRN Reason: MAINTAIN BP < 220/120 Stop: 10/30/18 14:29 Magnesium Hydroxide (Milk Of Magnesia) 30 ml PO DAILY PRN PRN PRN Reason: Constipation Melatonin (Melatonin) 5 mg PO QHS PRN PRN Reason: SLEEP Last Admin: 10/29/18 22:05 Dose: 5 mg Nutritional Formula (Osmolite 1.2) 240 ml GT 5X/DAY [facility] Last Admin: 10/30/18 05:11 Dose: 240 ml Nystatin (Nystatin) 500,000 unit PO 4X/DAY [facility] Last Admin: 10/29/18 21:09 Dose: 500,000 unit Sodium Chloride () 5 - 15 ml IV UD PRN PRN Reason: SALINE FLUSH Last Admin: 10/29/18 19:29 Dose: 10 ml Medical Necessity - Tobacco Use Smoking Status: Never smoker Tobacco Use: Non-smoker Assessment/Plan All Active Problems CVA (cerebral vascular accident) (Acute) 1. 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 In the ER he had blood cultures drawn lactate with 1.1 -This is possibly due to sinusitis he is currently on Rocephin -X-ray and UA are negative -PT/OT as well as speech therapy to assess for dysphagia prior to initiating limited p.o., he is only allowed to take liquids because of esophageal cancer -MRI and echo are pending, if the MRI is negative can probably discharge home today 2. Esophageal mass/pancytopenia -Per the family this is a precancerous lesion -Is undergoing chemoradiation to shrink the cancer for eventual surgical resection in the next 4 weeks -Pancytopenia likely a result of chemo radiation. 3. He does not take any medications for any other diagnoses because of the NG tube. He has had the NG tube for over a month and has since discontinued all of his home medications. The family is unsure as to what he was on as an outpatient though he does have a history of a ablation for an abnormal rhythm, making me believe that this is either A. fib or a flutter. He was also on medications for his blood pressure prior as well but the family is unsure as to what kind. He was on Coumadin for the abnormal cardiac rhythm as well as a history of DVT DVT: SCDs Code Visit Inpatient E&M: 69700 Subs Hosp L2
--- NOTE | 2018-10-30 08:26 | PN_ITS ---
Patient Problems: Active and Suspected Problems CVA (cerebral vascular accident) (Acute) Subjective: Doing well speech is back to normal no weakness or numbness in any extremity. He is wanting to go home today Vitals/I&O's: Vital Signs Temp Pulse Resp BP Pulse Ox 98.9 F 95 16 95/60 100 10/30/18 00:00 10/30/18 06:00 10/30/18 06:00 10/30/18 06:00 10/30/18 06:50 Oxygen Flow Rate (L/min) 2 Oxygen Delivery Method Room Air Weight: 179 lb 10.828 oz Body Mass Index (BMI) 24.7 Finger Stick Blood Glucose 99 Intake and Output for Last 24 Hours 10/28/18 10/29/18 10/30/18 23:59 23:59 23:59 Intake Total 742 / 742 803 / 803 Output Total 350 / 350 225 / 225 Balance 392 / 392 578 / 578 General: Alert, Oriented x3, Cooperative, No apparent distress HEENT: Atraumatic, PERRLA, EOMI, Normocephalic, - - NG tube in place Oral: Dry Mucosa Neck: Supple, No JVD, Trachea Midline Lungs: Clear to auscultation, Normal air movement, No rhonchi, No wheeze, No rales Cardiovascular: Regular rate, Regular Rhythm, Normal S1, Normal S2, No murmurs, No rub noted, No Gallop Abdomen: Soft, Non-Distended, No Hepato-splenomegaly Extremities: No edema, Capillary Refill Less than 3 Seconds Skin: No rashes, No breakdown Neurological: Neuro grossly intact, Sensory exam intact to light touch and pain, speech normal, cranial nerves intact Psych/Mental Status: Normal Affect, Appropriate Laboratory Results 10/29/18 09:45: WBC 2.7 L, RBC 3.41 L, Hgb 10.8 L, Hct 32.4 L, MCV 95.0 H, MCH 31.7, MCHC 33.3, RDW 14.2, RDW Differential 48.9 H, Plt Count 107 L, MPV 10.1, Immature Gran % (Auto) 2.600 H, Neut % (Auto) 90.3 H, Lymph % (Auto) 4.9 L, [place] % (Auto) 2.2, Eos % (Auto) 0.0, Baso % (Auto) 0.0, Absolute Neuts (auto) 2.4, Absolute Lymphs (auto) 0.13 L, Total Counted Not Reportable, Differential Comment COMMENT, Diff Path Review February10/29/18 09:45: PT 14.0, INR 1.1, APTT 27.8 10/29/18 09:45: Sodium 135 L, Potassium 3.8, Chloride 101, Carbon Dioxide 25.0, Anion Gap 9, BUN 17, Creatinine 0.79, Estim Creat Clear Calc 72.16, Est GFR (MDRD) Af Amer 124, Est GFR (MDRD) Non-Af 103, BUN/Creatinine Ratio 21.5 H, Glucose 130 H, Calcium 8.0 L, Troponin I 0.047 H 10/29/18 09:52: POC Glucose 99 10/29/18 11:50: Urine Color Yellow, Urine Clarity Clear, Urine pH 7.0, Ur Specific [place] 1.010, Urine Protein 15 H, Urine Glucose (UA) Normal, Urine Ketones Negative, Urine Occult Blood Negative, Urine Nitrite Negative, Urine Bilirubin Negative, Urine Urobilinogen Normal, Ur Leukocyte Esterase Negative, Urine RBC 0 SEEN, Urine WBC 0 SEEN, Ur Squamous Epith Cells 0-5 SEEN, Urine Bacteria RARE, Urine Mucus RARE 10/29/18 13:17: Lactic Acid 1.1 10/29/18 14:58: Troponin I 0.072 H 10/30/18 04:20: WBC 2.0 L, RBC 2.64 L, Hgb 8.4 L, Hct 25.0 L, MCV 94.7 H, MCH 31.8, MCHC 33.6, RDW 14.3, RDW Differential 49.5 H, Plt Count 71 L, MPV 9.2, Immature Gran % (Auto) 1.000 H, Neut % (Auto) 87.3 H, Lymph % (Auto) 7.1 L, [place] % (Auto) 4.1, Eos % (Auto) 0.5, Baso % (Auto) 0.0, Absolute Neuts (auto) 1.7 L, Absolute Lymphs (auto) 0.14 L, Total Counted Not Reportable, Differential Comment SCANNED, Platelet Estimate MOD 10/30/18 04:20: Sodium 137, Potassium 3.7, Chloride 104, Carbon Dioxide 26.0, Anion Gap 7, BUN 14, Creatinine 0.58 L, Estim Creat Clear Calc 72.16, Est GFR (MDRD) Af Amer 178, Est GFR (MDRD) Non-Af 147, BUN/Creatinine Ratio 24.2 H, Glucose 97, Calcium 7.8 L, Triglycerides 110, Cholesterol 117, LDL Cholesterol 63, VLDL Cholesterol 22, HDL Cholesterol 32 L Current Medications Atorvastatin Calcium (Lipitor) 80 mg PO QHS [facility] Last Admin: 10/29/18 21:09 Dose: Not Given Hydralazine HCl (Apresoline Iv) 5 mg IV Q30M PRN PRN Reason: sbp > 220/120 Sodium Chloride () 500 mls @ 999 mls/hr IV .Q31M ONE Last Admin: 10/29/18 10:08 Dose: 999 mls/hr Sodium Chloride () 250 mls @ 15 mls/hr IV .[id number] PRN PRN Reason: SALINE FLUSH Ceftriaxone Sodium (Rocephin) 1 gm in 50 mls @ 100 mls/hr IV Q24 [facility] Labetalol HCl (Trandate) 10 mg IV Q10M PRN PRN Reason: MAINTAIN BP < 220/120 Stop: 10/30/18 14:29 Magnesium Hydroxide (Milk Of Magnesia) 30 ml PO DAILY PRN PRN PRN Reason: Constipation Melatonin (Melatonin) 5 mg PO QHS PRN PRN Reason: SLEEP Last Admin: 10/29/18 22:05 Dose: 5 mg Nutritional Formula (Osmolite 1.2) 240 ml GT 5X/DAY [facility] Last Admin: 10/30/18 05:11 Dose: 240 ml Nystatin (Nystatin) 500,000 unit PO 4X/DAY [facility] Last Admin: 10/29/18 21:09 Dose: 500,000 unit Sodium Chloride () 5 - 15 ml IV UD PRN PRN Reason: SALINE FLUSH Last Admin: 10/29/18 19:29 Dose: 10 ml Medical Necessity - Tobacco Use Smoking Status: Never smoker Tobacco Use: Non-smoker Assessment/Plan All Active Problems CVA (cerebral vascular accident) (Acute) 1. CVA status post TPA -My exam occurred after the TPA had been given -Symptoms have completely resolved -He is able to communicate with me and is alert and oriented -He would be clear for either discharge home or transfer out of ICU by 11 AM -We will maintain blood pressures less than 180 systolic -Consult to neurology and round cutter operator -He did have a fever after the TPA was given, will monitor. In the ER he had blood cultures drawn lactate with 1.1 -This is possibly due to sinusitis he is currently on Rocephin -X-ray and UA are negative -PT/OT as well as speech therapy to assess for dysphagia prior to initiating limited p.o., he is only allowed to take liquids because of esophageal cancer -MRI and echo are pending, if the MRI is negative can probably discharge home today 2. Esophageal mass/pancytopenia -Per the family this is a precancerous lesion -Is undergoing chemoradiation to shrink the cancer for eventual surgical resection in the next 4 weeks -Pancytopenia likely a result of chemo radiation. 3. He does not take any medications for any other diagnoses because of the NG tube. He has had the NG tube for over a month and has since discontinued all of his home medications. The family is unsure as to what he was on as an outpatient though he does have a history of a ablation for an abnormal rhythm, making me believe that this is either A. fib or a flutter. He was also on medications for his blood pressure prior as well but the family is unsure as to what kind. He was on Coumadin for the abnormal cardiac rhythm as well as a history of DVT DVT: SCDs Code Visit Inpatient E&M: 75762 Subs Hosp L2
--- NOTE | 2018-10-30 09:49 | CASEMGMT ---
Social Work Note RN MAXINE Peralta informed this worker that pt's family is interested in PASSPORT services. SW met with pt and pt's family in room. Pt gave this worker permission to speak to him in front of his guest. SW introduced self and role at [facility]. SW informed pt and pt's family that [facility] is closed on the weekend and provided pt's family with [facility] information and encouraged pt's family to call [facility] on Thursday. Sherin Ortiz RIBBON WEAVER, FOOT PRESS OPERATOR
[2018-10-30] MEDS: Ceftriaxone 1 GM/50 ML BAG IV (09:53)
--- NOTE | 2018-10-30 09:58 | CM.UR ---
participated in interdisciplinary rounds. Patient did get TPA in ER. No s/s of bleeding complications. Per Dr. Gomez patient may be discharged today or if not today, tomorrow. Therapy to eval later today. Plan is to discharge back home with family. Bret Peralta RN, [facility].
--- NOTE | 2018-10-30 10:03 | CM.UR ---
curriculum and assessment coordinator completed. They would like to start Passport process as they feel shortly they will need OCCUPATIONAL THERAPY AIDES TEACHER assistance. Alerted BABAR Duff. Also asking about a tube feeding pump. The son's fiance does work at home but cannot be attentive to him at all times. States she can't always assist with feeds so a pump would be more helpful to ensure he gets enough feedings. Also they have been purchasing 2.0 tube feeding as he needed more calories and all the insurance would pay for is the 1.5. Alerted family that I will work on however nothing will happen this weekend so go ahead and go, if they plan to discharge today and someone will contact them next week. Verb agreement with this plan. Bret Peralta RN, CCM.
--- NOTE | 2018-10-30 11:00 | MRI_ITS ---
STUDY: MRI BRAIN WITHOUT CONTRAST REASON FOR EXAM: Male, 73 years old. cva, TPA given10:42 10/29/18; expressive aphasia, confusion, hx esoph ca. TECHNIQUE: Standardized multiplanar fat and water weighted pulse sequences were obtained. COMPARISON: 10/29/2018 CT of the head FINDINGS: Examination is degraded by motion artifact. There is mild cerebral atrophy with widening of the extra-axial spaces and ventricular dilatation. There are a limited number of small white matter hyperintensities, distributed throughout the deep white matter tracts of the cerebral hemispheres, consistent with mild chronic white matter ischemic changes. There is a 1 cm restricted diffusion at the left occipital lobe, consistent with acute infarction. Normal bilateral basal ganglia. Normal thalami. There is no extra-axial fluid accumulation. Normal flow voids within the major intracranial circulation suggesting patency by spin echo criteria. Normal sella turcica, pituitary gland, infundibular stalk, optic chiasm and hypothalamus. Normal tectal plate and pineal gland. Normal midbrain, taryn and medulla. Normal cerebellum. Normal basal cisterns. MRI/Brain without Contrast IMPRESSION: Acute left occipital infarct. N.B. : The above information has been verbally conveyed by Echo Hutchison MD to MEHUL Mandujano RN, on 10/30/2018 13:34:35 (ET). Electronically Signed: Echo Hutchison MD at 12:21 EST Tel , Service support ,
--- NOTE | 2018-10-30 12:58 | NURSING ---
-while in MRI pt struggled to follow directions and stay still. Once returning to unit, pt's son said that is how is has been for the past 4 years. States that his father will go from pleasant and calm to cursing and angry.
--- NOTE | 2018-10-30 15:05 | PCM.PN.NEU ---
Subjective: No events overnight. Care discussed with nursing staff. 73 yr M with PMH HLD, Mediastinal hugh-esophageal mass, s/p chemotherapy and radiation, PAfib was on Coumadin-changed to Lovenox due to dysphagia, but patient non compliant, ?dementia, H/O ETOH abuse admitted with aphasia, s/p tpa, symptoms resolved post tpa. MRI brain done showed acute small left occipital infarct. CTA head/neck showed right ICA 50-69% stenosis. NIHSS 0 at present. - Physical Exam General: Alert HEENT: Normocephalic Neck: Supple Lungs: Normal air movement Cardiovascular: Normal S1, Normal S2 Abdomen: Bowel Sounds Present Extremities: No cyanosis Neurological: - - consious, alert, CN 2-12 grossly intact, power 5/5 all 4 extremities, no sensory loss, no cerebellar signs, gait deferred, Reflexes + B/L B/S/T/K/A, NIHSS 0 at present Psych/Mental Status: Normal Affect Vital Signs Temp Pulse Resp BP Pulse Ox 99.5 F H 100 18 103/61 100 10/30/18 12:00 10/30/18 12:00 10/30/18 12:00 10/30/18 12:00 10/30/18 12:00 Oxygen Flow Rate (L/min) 2 Oxygen Delivery Method Room Air Weight: 81.5 kg Body Mass Index (BMI) 24.7 Finger Stick Blood Glucose 99 Intake and Output for Last 24 Hours 10/28/18 10/29/18 10/30/18 23:59 23:59 23:59 Intake Total 742 / 742 1393 / 1393 Output Total 350 / 350 425 / 425 Balance 392 / 392 968 / 968 Laboratory Tests Past 24 Hrs 10/29/18 10/30/18 10/30/18 14:58 04:20 04:20 WBC 2.0 L RBC 2.64 L Hgb 8.4 L Hct 25.0 L MCV 94.7 H MCH 31.8 MCHC 33.6 RDW 14.3 RDW Differential 49.5 H Plt Count 71 L MPV 9.2 Immature Gran % (Auto) 1.000 H Neut % (Auto) 87.3 H Lymph % (Auto) 7.1 L [place] % (Auto) 4.1 Eos % (Auto) 0.5 Baso % (Auto) 0.0 Absolute Neuts (auto) 1.7 L Absolute Lymphs (auto) 0.14 L Total Counted Not Reportable Differential Comment SCANNED Platelet Estimate MOD DEC Sodium 137 Potassium 3.7 Chloride 104 Carbon Dioxide 26.0 Anion Gap 7 BUN 14 Creatinine 0.58 L Estim Creat Clear Calc 72.16 Est GFR (MDRD) Af Amer 178 Est GFR (MDRD) Non-Af 147 BUN/Creatinine Ratio 24.2 H Glucose 97 Calcium 7.8 L Troponin I 0.072 H Triglycerides 110 Cholesterol 117 LDL Cholesterol 63 VLDL Cholesterol 22 HDL Cholesterol 32 L Medical Necessity - Tobacco Use Smoking Status: Never smoker Tobacco Use: Non-smoker Assessment/Plan All Active Problems CVA (cerebral vascular accident) (Acute) SVT (supraventricular tachycardia) (Acute) 73 yr M with PMH HLD, Mediastinal hugh-esophageal mass, s/p chemotherapy and radiation, complicated by pancytopenia, PAfib was on Coumadin-changed to Lovenox due to dysphagia, but patient non compliant, ?dementia, H/O ETOH abuse admitted with aphasia, s/p tpa, symptoms resolved post tpa. MRI brain done showed acute small left occipital infarct. CTA head/neck showed right ICA 50-69% stenosis. NIHSS 0 at present. Impression Aphasia Acute Left Occipital infarct Right ICA 50-69% stenosis Plan -MRI brain and CTA head/neck reviewed -Check CT head w/o contrast -Eliquis 5 mg PO BID (if no contraindication and if patient had H/O PAfib)-start in 72 hrs after stroke (start from 11/01/2018). Bleeding risks discussed. Cardiology consult for further arrhythmia evaluation. -Lipitor 80 mg PO q hs -LDL-63, check Hba1c -Check TTE -Check Vitamin B12, TSH. Further dementia work up as outpatient. -Vascular surgery consult -PT/OT/ST -GI/DVT prophylaxis -Stroke risk factors discussed and stroke education provided -Goal BP < 130/80 mmHg and Hba1c < 7% -Avoid hypotension -Patient counseled to quit smoking and drinking alcohol -Further medical management per hospitalist/oncology and ICU team -Follow up with Neurology as outpatient in 4 weeks -Please call with questions if any -Thank you for allowing us to participate in patient's care and management
--- NOTE | 2018-10-30 15:20 | CT_ITS ---
STUDY: CT BRAIN WITHOUT CONTRAST REASON FOR EXAM: Male, 73 years old. Altered mental status, CVA, given TPA yesterday, confusion and trouble getting words out. Hx esophageal cancer with radiation and chemotherapy. RADIATION DOSAGE (If Supplied By Facility): CTDIvol = ( 44.99 ) mGy, DLP = ( 931.09 ) mGycm Individualized dose optimization techniques were used for this CT. TECHNIQUE: Transaxial CT imaging of the brain was performed without administration of intravenous contrast material. COMPARISON: Study dated yesterday FINDINGS: Normal soft tissue structures. Normal calvarium. There are calcifications noted in the distal vertebral arteries. There are calcifications noted in the cavernous carotid arteries. This is consistent for atherosclerotic disease. There is mild cerebral atrophy with widening of the extra-axial spaces and ventricular dilatation. There are areas of decreased attenuation within the white matter tracts of the supratentorial brain, consistent with microvascular disease changes. Normal basal ganglia and thalami. Normal brainstem. There is mild cerebellar atrophy. There is no intracranial hemorrhage. There are no findings of an acute ischemic infarction. Normal visualized paranasal sinuses. CT/Brain/Head without Contrast IMPRESSION: Chronic involutional changes of the brain. There are no acute findings. Electronically Signed: Brian Moran MD at 17:51 EST , Service support ,
--- NOTE | 2018-10-30 16:00 | NURSING ---
to CT per bed on monitor. junior architect in attendance
--- NOTE | 2018-10-30 16:25 | NURSING ---
return from CT. lg smear noted. to BSC 2 assist d/t pt impulsiveness. returned to bed after no results. family at bedside
--- NOTE | 2018-10-30 18:57 | NURSING ---
pt increasingly restless. multiple times setting off the bed alarm in the last hour trying to get OOB. at 1845, once again, bed alarm going off. Staff immediately to room and found pt sitting on the foot of the bed, legs on the floor, organizing all my lines. dobhoff in his hand. Dr. Gee notified per text.
[2018-10-30] MEDS: Acetaminophen 650 MG Suppository RECTAL (23:02)
[2018-10-30 23:20] LABS: Absolute Lymphocyte Count 0.18 X10^3/ul (0.83-4.51); Absolute Neutrophil Count 2.6 X10^3/uL (2.0-7.7); Hematocrit 30.3 % (40-54); Hemoglobin 10.2 g/dl (13.0-16.5); Lymphocyte # 0.18 X10^3/ul (4.0); Lymphocyte % 6.3 % (19-41); Mean Corp Hgb Conc 33.7 g/gl (32-36); Mean Corpuscular Hgb 31.9 pg (27.0-32.0); Mean Corpuscular Volume 94.7 fL (80-94); Mean Platelet Vol. 9.7 fl (6.2-12.0); Monocyte# 0.09 X10^3/uL; Monocyte% 3.1 % (0-10); Neutrophil # 2.56 X10^3/uL (2.7-7.7); Neutrophil % 89.6 % (47-70); POSITIVE COUNT NO; POSITIVE DIFFERENTIAL YES; POSITIVE MORPHOLOGY YES; Platelet Count 79 K/mm3 (150-450); RBC Distribution Width CV 14.2 % (11.6-14.6); RBC Distribution Width SD 48.7 fl (35.1-43.9); White Blood Count 2.9 K/mm3 (4.4-11.0)
[2018-10-30 23:21] LABS: Differential Indicated SCAN CRITERIA MET
[2018-10-30 23:33] LABS: Dohle Bodies RARE; Toxic Granulation RARE
[2018-10-31] VITALS (31 sets, daily range): BP systolic 65–119; BP diastolic 39–78; PULSE 98–203; RESP 18–31; TEMP 37–38.8; O2SAT 18–99; BMI 24.7
[2018-10-31 02:24] LABS: Bacteria 0 SEEN /hpf (None Seen); Mucous, Urine 0 SEEN /hpf (<or=2+)
[2018-10-31 02:33] LABS: Color, Urine Yellow (Yellow); Glucose, Dipstick Normal (Normal); Ketone-Dipstick 5 mg/dl (Negative); Leukocyte Esterase-Dipstick 25 /ul (Negative); Nitrite-Dipstick Negative (Negative); Occult Blood-Urine 10 /ul (Negative); Protein-Dipstick 30 mg/dl (Negative); Urine Bilirubin Dipstick Negative (Negative); Urine Clarity Sl. Cloudy (Clear); Urine Urobilinogen 1 mg/dl (Normal)
[2018-10-31 02:38] LABS: Amorphous Sediment 1+; Red Blood Cells-Urine 5-10 SEEN /hpf (0-5); Squamous Epithelial Cells - UA 0-5 SEEN /hpf (0-5); White Blood Cells 0-5 SEEN /hpf (0-5)
[2018-10-31 04:58] LABS: Anion Gap 18 (5-15); BUN 14 mg/dL (7-18); Calcium,Total 8.6 mg/dL (8.5-10.1); Chloride 103 mmol/L (98-107); EST Glomerular Filtration Rate 78 mL/min (>60); Est Glom Filt Rate - Afr Amer 95 mL/min (>60); Estimated Creatinine Clearance 72.16 ml/min; Glucose 167 mg/dL (74-106); Potassium 4.4 mmol/L (3.5-5.1); Sodium Level 137 mmol/L (136-145)
[2018-10-31 05:10] LABS: Absolute Lymphocyte Count 0.69 X10^3/ul (0.83-4.51); Absolute Neutrophil Count 4.4 X10^3/uL (2.0-7.7); Basophil# 0.01 X10^3/uL; Basophil% 0.2 % (0-1); Eosinophil# 0.01 X10^3/uL; Eosinophils% 0.2 % (0-5); Hematocrit 31.2 % (40-54); Hemoglobin 10.1 g/dl (13.0-16.5); Lymphocyte # 0.69 X10^3/ul (4.0); Lymphocyte % 12.8 % (19-41); Mean Corp Hgb Conc 32.4 g/gl (32-36); Mean Corpuscular Hgb 31.7 pg (27.0-32.0); Mean Corpuscular Volume 97.8 fL (80-94); Mean Platelet Vol. 9.9 fl (6.2-12.0); Monocyte# 0.24 X10^3/uL; Monocyte% 4.5 % (0-10); Neutrophil # 4.41 X10^3/uL (2.7-7.7); Neutrophil % 81.9 % (47-70); Platelet Count 132 K/mm3 (150-450); RBC Distribution Width CV 14.5 % (11.6-14.6); RBC Distribution Width SD 50.8 fl (35.1-43.9); Red Blood Count 3.19 M/mm3 (4.6-6.2); White Blood Count 5.4 K/mm3 (4.4-11.0)
[2018-10-31 05:20] LABS: Differential Indicated SCAN CRITERIA MET; POSITIVE COUNT NO; POSITIVE DIFFERENTIAL NO; POSITIVE MORPHOLOGY YES
--- NOTE | 2018-10-31 06:29 | PN_ITS ---
Patient Problems: Active and Suspected Problems CVA (cerebral vascular accident) (Acute) Subjective: Doing well, no sign of deficits. Had a CT scan last night with no bleed. However he did remove his NG tube on accident. Vitals/I&O's: Vital Signs Temp Pulse Resp BP Pulse Ox 100.0 F H 120 H 18 105/58 L 97 10/31/18 05:35 10/31/18 05:35 10/31/18 05:35 10/31/18 05:35 10/31/18 05:35 Oxygen Flow Rate (L/min) 2 Oxygen Delivery Method Room Air Weight: 173 lb 1.006 oz Body Mass Index (BMI) 24.7 Finger Stick Blood Glucose 99 Intake and Output for Last 24 Hours 10/29/18 10/30/18 10/31/18 23:59 23:59 23:59 Intake Total 742 / 742 1833 / 1833 Output Total 350 / 350 625 / 625 Balance 392 / 392 1208 / 1208 General: Alert, Oriented x3, Cooperative, No apparent distress HEENT: Atraumatic, PERRLA, EOMI, Normocephalic, Oral: Dry Mucosa Neck: Supple, No JVD, Trachea Midline Lungs: Clear to auscultation, Normal air movement, No rhonchi, No wheeze, No rales Cardiovascular: Regular rate, Regular Rhythm, Normal S1, Normal S2, No murmurs, No rub noted, No Gallop Abdomen: Soft, Non-Distended, No Hepato-splenomegaly Extremities: No edema, Capillary Refill Less than 3 Seconds Skin: No rashes, No breakdown Neurological: Neuro grossly intact, Sensory exam intact to light touch and pain, speech normal, cranial nerves intact Psych/Mental Status: Normal Affect, Appropriate Laboratory Results 10/30/18 04:20: Total Counted Not Reportable, Differential Comment SCANNED, Platelet Estimate MOD 10/30/18 22:50: WBC 2.9 L, RBC 3.20 L, Hgb 10.2 L, Hct 30.3 L, MCV 94.7 H, MCH 31.9, MCHC 33.7, RDW 14.2, RDW Differential 48.7 H, Plt Count 79 L, MPV 9.7, Immature Gran % (Auto) 1.000 H, Neut % (Auto) 89.6 H, Lymph % (Auto) 6.3 L, [place] % (Auto) 3.1, Eos % (Auto) 0.0, Baso % (Auto) 0.0, Absolute Neuts (auto) 2.6, Absolute Lymphs (auto) 0.18 L, Total Counted Not Reportable, Differential Comment , Diff Path Review May foll, Toxic Granulation RARE, Dohle Bodies RARE 10/31/18 02:13: Urine Color Yellow, Urine Clarity Sl. Cloudy, Urine pH 6.0, Ur Specific [place] 1.020, Urine Protein 30 H, Urine Glucose (UA) Normal, Urine Ketones 5 H, Urine Occult Blood 10 H, Urine Nitrite Negative, Urine Bilirubin Negative, Urine Urobilinogen 1 H, Ur Leukocyte Esterase 25 H, Urine RBC 5-10 SEEN, Urine WBC 0-5 SEEN, Ur Squamous Epith Cells 0-5 SEEN, Amorphous Sediment 1+, Urine Bacteria 0 SEEN, Urine Mucus 0 SEEN 10/31/18 04:20: WBC 5.4, RBC 3.19 L, Hgb 10.1 L, Hct 31.2 L, MCV 97.8 H, MCH 31.7, MCHC 32.4, RDW 14.5, RDW Differential 50.8 H, Plt Count 132 L, MPV 9.9, Immature Gran % (Auto) 0.400, Neut % (Auto) 81.9 H, Lymph % (Auto) 12.8 L, [place] % (Auto) 4.5, Eos % (Auto) 0.2, Baso % (Auto) 0.2, Absolute Neuts (auto) 4.4, Absolute Lymphs (auto) 0.69 L, Total Counted Pending 10/31/18 04:20: Sodium 137, Potassium 4.4, Chloride 103, Carbon Dioxide 16.0 L, Anion Gap 18 H, BUN 14, Creatinine 1.00, Estim Creat Clear Calc 72.16, Est GFR (MDRD) Af Amer 95, Est GFR (MDRD) Non-Af 78, BUN/Creatinine Ratio 14.0, Glucose 167 H, Calcium 8.6 Current Medications Acetaminophen (Tylenol) 650 mg RECTAL Q6H PRN PRN PRN Reason: FEVER Last Admin: 10/30/18 23:02 Dose: 650 mg Aspirin (Aspirin) 325 mg PO DAILY@0800 [facility] Last Admin: 10/30/18 21:20 Dose: Not Given Atorvastatin Calcium (Lipitor) 80 mg PO QHS [facility] Last Admin: 10/30/18 21:20 Dose: Not Given Hydralazine HCl (Apresoline Iv) 5 mg IV Q30M PRN PRN Reason: sbp > 220/120 Sodium Chloride () 500 mls @ 999 mls/hr IV .Q31M ONE Last Admin: 10/29/18 10:08 Dose: 999 mls/hr Sodium Chloride () 250 mls @ 15 mls/hr IV .[id number] PRN PRN Reason: SALINE FLUSH Ceftriaxone Sodium (Rocephin) 1 gm in 50 mls @ 100 mls/hr IV Q24 [facility] Last Admin: 10/30/18 09:53 Dose: 100 mls/hr Magnesium Hydroxide (Milk Of Magnesia) 30 ml PO DAILY PRN PRN PRN Reason: Constipation Melatonin (Melatonin) 5 mg PO QHS PRN PRN Reason: SLEEP Last Admin: 10/29/18 22:05 Dose: 5 mg Nutritional Formula (Osmolite 1.2) 240 ml GT 5X/DAY [facility] Last Admin: 10/31/18 05:09 Dose: Not Given Nystatin (Nystatin) 500,000 unit PO 4X/DAY [facility] Last Admin: 10/30/18 21:20 Dose: Not Given Sodium Chloride () 5 - 15 ml IV UD PRN PRN Reason: SALINE FLUSH Last Admin: 10/29/18 19:29 Dose: 10 ml Medical Necessity - Tobacco Use Smoking Status: Never smoker Tobacco Use: Non-smoker Assessment/Plan All Active Problems CVA (cerebral vascular accident) (Acute) 1. CVA status post TPA -My exam occurred after the TPA had been given -Symptoms have completely resolved -He is able to communicate with me and is alert and oriented -He would be clear for either discharge home or transfer out of ICU by 11 AM -We will maintain blood pressures less than 180 systolic -Consult to neurology and vault worker -He did have a fever after the TPA was given, will monitor. In the ER he had blood cultures drawn lactate with 1.1 -This is possibly due to sinusitis he is currently on Rocephin -X-ray and UA are negative -PT/OT as well as speech therapy to assess for dysphagia prior to initiating limited p.o., he is only allowed to take liquids because of esophageal cancer -MRI and echo are pending, if the MRI is negative can probably discharge home today 2. Esophageal mass/pancytopenia -Per the family this is a precancerous lesion -Is undergoing chemoradiation to shrink the cancer for eventual surgical resection in the next 4 weeks -Pancytopenia likely a result of chemo radiation, though appears to be improving with an increase in his white count of 5.4 and improvement in his thrombocytopenia to 137,000 -Consult general surgery to replace his feeding tube which had been placed by general surgery with a scope. 3. He does not take any medications for any other diagnoses because of the NG tube. He has had the NG tube for over a month and has since discontinued all of his home medications. The family is unsure as to what he was on as an outpatient though he does have a history of a ablation for an abnormal rhythm, making me believe that this is either A. fib or a flutter. He was also on medications for his blood pressure prior as well but the family is unsure as to what kind. He was on Coumadin for the abnormal cardiac rhythm as well as a history of DVT DVT: SCDs Code Visit Inpatient E&M: 96307 Subs Hosp L2
[2018-10-31 06:50] LABS: Dohle Bodies RARE; Toxic Granulation 1+
--- NOTE | 2018-10-31 07:37 | PCM.PN.INT ---
Subjective: Patient not transferred out of the intensive care unit yesterday secondary to bed availability. Patient did have some confusion and fever overnight and removed his NG. Patient has not had any recurrence of neurologic symptoms. Patient remains on room air. General: Alert, Cooperative, No apparent distress, Confused - Intermittently, - - No conversational dyspnea HEENT: Atraumatic, PERRLA, EOMI, Normocephalic, - - NG has been removed. No scleral icterus or injection noted Oral: Moist Mucosa, No Gingival or Mucosal Lesions/ Ulcerations Neck: Supple, No JVD, No Nodes, Trachea Midline Lungs: No rhonchi, No wheeze, No rales, Diminished Cardiovascular: Normal S1, Normal S2, No murmurs, Irregular Rate, No rub noted, No Gallop, Tachycardic Abdomen: Bowel Sounds Present, Soft, Non Tender, Non-Distended Extremities: No clubbing, No cyanosis, No edema, Capillary Refill Less than 3 Seconds Skin: No rashes, No breakdown Musculoskeletal: No Tenderness to Palpation of Joints or Extremities Lymphatic: No Cervical, Supraclavicular, or Inguinal Adenopathy Neurological: Cranial nerves II-XII grossly intact, Neuro grossly intact, Motor Exam 5/5 strength throughout Psych/Mental Status: Normal Affect, Appropriate Vital Signs Temp Pulse Resp BP Pulse Ox 37.8 C H 120 H 18 105/58 L 97 10/31/18 05:35 10/31/18 05:35 10/31/18 05:35 10/31/18 05:35 10/31/18 05:35 Oxygen Flow Rate (L/min) 2 Oxygen Delivery Method Room Air Weight: 78.5 kg Body Mass Index (BMI) 24.7 Finger Stick Blood Glucose 99 Intake and Output for Last 24 Hours 10/29/18 10/30/18 10/31/18 23:59 23:59 23:59 Intake Total 742 / 742 1833 / 1833 Output Total 350 / 350 625 / 625 Balance 392 / 392 1208 / 1208 Labs (Last 48 Hours) 10/29/18 10/29/18 10/29/18 09:45 09:45 09:45 WBC 2.7 L RBC 3.41 L Hgb 10.8 L Hct 32.4 L MCV 95.0 H MCH 31.7 MCHC 33.3 RDW 14.2 RDW Differential 48.9 H Plt Count 107 L MPV 10.1 Immature Gran % (Auto) 2.600 H Neut % (Auto) 90.3 H Lymph % (Auto) 4.9 L [place] % (Auto) 2.2 Eos % (Auto) 0.0 Baso % (Auto) 0.0 Absolute Neuts (auto) 2.4 Absolute Lymphs (auto) 0.13 L Total Counted Not Reportable Differential Comment COMMENT Diff Path Review May foll Toxic Granulation Dohle Bodies Platelet Estimate PT 14.0 INR 1.1 APTT 27.8 Sodium 135 L Potassium 3.8 Chloride 101 Carbon Dioxide 25.0 Anion Gap 9 BUN 17 Creatinine 0.79 Estim Creat Clear Calc 72.16 Est GFR (MDRD) Af Amer 124 Est GFR (MDRD) Non-Af 103 BUN/Creatinine Ratio 21.5 H Glucose 130 H Lactic Acid Calcium 8.0 L Troponin I 0.047 H Triglycerides Cholesterol LDL Cholesterol VLDL Cholesterol HDL Cholesterol Urine Color Urine Clarity Urine pH Ur Specific [place] Urine Protein Urine Glucose (UA) Urine Ketones Urine Occult Blood Urine Nitrite Urine Bilirubin Urine Urobilinogen Ur Leukocyte Esterase Urine RBC Urine WBC Ur Squamous Epith Cells Amorphous Sediment Urine Bacteria Urine Mucus POC Glucose 10/29/18 10/29/18 10/29/18 09:52 11:50 13:17 WBC RBC Hgb Hct MCV MCH MCHC RDW RDW Differential Plt Count MPV Immature Gran % (Auto) Neut % (Auto) Lymph % (Auto) [place] % (Auto) Eos % (Auto) Baso % (Auto) Absolute Neuts (auto) Absolute Lymphs (auto) Total Counted Differential Comment Diff Path Review Toxic Granulation Dohle Bodies Platelet Estimate PT INR APTT Sodium Potassium Chloride Carbon Dioxide Anion Gap BUN Creatinine Estim Creat Clear Calc Est GFR (MDRD) Af Amer Est GFR (MDRD) Non-Af BUN/Creatinine Ratio Glucose Lactic Acid 1.1 Calcium Troponin I Triglycerides Cholesterol LDL Cholesterol VLDL Cholesterol HDL Cholesterol Urine Color Yellow Urine Clarity Clear Urine pH 7.0 Ur Specific [place] 1.010 Urine Protein 15 H Urine Glucose (UA) Normal Urine Ketones Negative Urine Occult Blood Negative Urine Nitrite Negative Urine Bilirubin Negative Urine Urobilinogen Normal Ur Leukocyte Esterase Negative Urine RBC 0 SEEN Urine WBC 0 SEEN Ur Squamous Epith Cells 0-5 SEEN Amorphous Sediment Urine Bacteria RARE Urine Mucus RARE POC Glucose 99 10/29/18 10/30/18 10/30/18 14:58 04:20 04:20 WBC 2.0 L RBC 2.64 L Hgb 8.4 L Hct 25.0 L MCV 94.7 H MCH 31.8 MCHC 33.6 RDW 14.3 RDW Differential 49.5 H Plt Count 71 L MPV 9.2 Immature Gran % (Auto) 1.000 H Neut % (Auto) 87.3 H Lymph % (Auto) 7.1 L [place] % (Auto) 4.1 Eos % (Auto) 0.5 Baso % (Auto) 0.0 Absolute Neuts (auto) 1.7 L Absolute Lymphs (auto) 0.14 L Total Counted Not Reportable Differential Comment SCANNED Diff Path Review Toxic Granulation Dohle Bodies Platelet Estimate MOD DEC PT INR APTT Sodium 137 Potassium 3.7 Chloride 104 Carbon Dioxide 26.0 Anion Gap 7 BUN 14 Creatinine 0.58 L Estim Creat Clear Calc 72.16 Est GFR (MDRD) Af Amer 178 Est GFR (MDRD) Non-Af 147 BUN/Creatinine Ratio 24.2 H Glucose 97 Lactic Acid Calcium 7.8 L Troponin I 0.072 H Triglycerides 110 Cholesterol 117 LDL Cholesterol 63 VLDL Cholesterol 22 HDL Cholesterol 32 L Urine Color Urine Clarity Urine pH Ur Specific [place] Urine Protein Urine Glucose (UA) Urine Ketones Urine Occult Blood Urine Nitrite Urine Bilirubin Urine Urobilinogen Ur Leukocyte Esterase Urine RBC Urine WBC Ur Squamous Epith Cells Amorphous Sediment Urine Bacteria Urine Mucus POC Glucose 10/30/18 10/31/18 10/31/18 22:50 02:13 04:20 WBC 2.9 L 5.4 RBC 3.20 L 3.19 L Hgb 10.2 L 10.1 L Hct 30.3 L 31.2 L MCV 94.7 H 97.8 H MCH 31.9 31.7 MCHC 33.7 32.4 RDW 14.2 14.5 RDW Differential 48.7 H 50.8 H Plt Count 79 L 132 L MPV 9.7 9.9 Immature Gran % (Auto) 1.000 H 0.400 Neut % (Auto) 89.6 H 81.9 H Lymph % (Auto) 6.3 L 12.8 L [place] % (Auto) 3.1 4.5 Eos % (Auto) 0.0 0.2 Baso % (Auto) 0.0 0.2 Absolute Neuts (auto) 2.6 4.4 Absolute Lymphs (auto) 0.18 L 0.69 L Total Counted Not Reportable Not Reportable Differential Comment Diff Path Review May foll Toxic Granulation RARE 1+ Dohle Bodies RARE RARE Platelet Estimate PT INR APTT Sodium Potassium Chloride Carbon Dioxide Anion Gap BUN Creatinine Estim Creat Clear Calc Est GFR (MDRD) Af Amer Est GFR (MDRD) Non-Af BUN/Creatinine Ratio Glucose Lactic Acid Calcium Troponin I Triglycerides Cholesterol LDL Cholesterol VLDL Cholesterol HDL Cholesterol Urine Color Yellow Urine Clarity Sl. Cloudy Urine pH 6.0 Ur Specific [place] 1.020 Urine Protein 30 H Urine Glucose (UA) Normal Urine Ketones 5 H Urine Occult Blood 10 H Urine Nitrite Negative Urine Bilirubin Negative Urine Urobilinogen 1 H Ur Leukocyte Esterase 25 H Urine RBC 5-10 SEEN Urine WBC 0-5 SEEN Ur Squamous Epith Cells 0-5 SEEN Amorphous Sediment 1+ Urine Bacteria 0 SEEN Urine Mucus 0 SEEN POC Glucose 10/31/18 04:20 WBC RBC Hgb Hct MCV MCH MCHC RDW RDW Differential Plt Count MPV Immature Gran % (Auto) Neut % (Auto) Lymph % (Auto) [place] % (Auto) Eos % (Auto) Baso % (Auto) Absolute Neuts (auto) Absolute Lymphs (auto) Total Counted Differential Comment Diff Path Review Toxic Granulation Dohle Bodies Platelet Estimate PT INR APTT Sodium 137 Potassium 4.4 Chloride 103 Carbon Dioxide 16.0 L Anion Gap 18 H BUN 14 Creatinine 1.00 Estim Creat Clear Calc 72.16 Est GFR (MDRD) Af Amer 95 Est GFR (MDRD) Non-Af 78 BUN/Creatinine Ratio 14.0 Glucose 167 H Lactic Acid Calcium 8.6 Troponin I Triglycerides Cholesterol LDL Cholesterol VLDL Cholesterol HDL Cholesterol Urine Color Urine Clarity Urine pH Ur Specific [place] Urine Protein Urine Glucose (UA) Urine Ketones Urine Occult Blood Urine Nitrite Urine Bilirubin Urine Urobilinogen Ur Leukocyte Esterase Urine RBC Urine WBC Ur Squamous Epith Cells Amorphous Sediment Urine Bacteria Urine Mucus POC Glucose Clinical Impression(s) from Imaging Studies Brain MRI 10/30/18 11:00 IMPRESSION: Acute left occipital infarct. N.B. : The above information has been verbally conveyed by Echo Hutchison MD to RN Jackelyn Mandujano RN, on 10/30/2018 13:34:35 (ET). Electronically Signed: Echo Hutchison MD at 12:21 EST Tel , Service support , Brain CT 10/30/18 15:20 IMPRESSION: Chronic involutional changes of the brain. There are no acute findings. Electronically Signed: Brian Moran MD at 17:51 EST , Service support , Medical Necessity - Tobacco Use Smoking Status: Never smoker Tobacco Use: Non-smoker Assessment/Plan All Active Problems CVA (cerebral vascular accident) (Acute) RECOMMENDATIONS: 1. Await surgical placement of NG tube 2. P.o. diet per speech recommendations 3. Physical therapy, occupational therapy and speech therapy as indicated 4. Continue empiric antibiotics, may be transition to p.o. if discharged 5. IMPRESSIONS: 1. Acute CVA status post TPA Patient did have an acute ischemic event noted on MRI. Patient appears to be tolerating this well. Patient has had some confusion overnight and removed his NG. This will have to be replaced given that he was receiving most of his nutrition and medications through this route. Patient doing well on room air. No recurrence of neurologic symptoms. Hemodynamically stable on room air. Will sign off from a critical care perspective 2. Fever Unclear etiology at this time. Patient does report an intermittent productive cough and sinus congestion. Patient does have a Dobbhoff that is been in the left nares for almost 2 weeks. Patient may have an element of sinusitis. Will give patient empiric antibiotics for now, but not believe patient is in severe sepsis. Sputum culture ordered. Removal of Dobbhoff may allow for drainage of sinuses and improvement in fever. 3. Alcohol abuse/advanced age/esophageal tumor/BPH/GERD/history of migraine/hyperlipidemia/history of noncompliance Complicates care, management, recovery and prognosis. We will need to monitor patient closely for bleeding from esophageal tumor. Monitor patient for alcohol withdrawal type symptoms. Patient does appear to have an element of pancytopenia secondary to chemotherapy versus chronic inflammation from malignancy. ADDENDUM 10:50 AM: At 9:20 AM, called to patient's room emergently. Patient had woken up and walked to the bathroom with nursing assistance. However, when attempting to urinate, patient developed a heart rate of approximately 200. Patient was taken back to his bed. Upon lying flat, patient had vitals taken showing hypotension with systolic blood pressures in the 70s-80s. Patient was not given adenosine as there was some concern for atrial fibrillation. Cardiology was consulted and case was discussed over the phone. Patient was given 500 mcg of digoxin, amiodarone bolus and drip. IV access was questionable and patient did have some extravasation of amiodarone bolus. Peripheral access was eventually obtained. Patient had pads placed for potential cardioversion. Dr. Dodson then arrived and adenosine 12 mg was attempted. Patient responded well and appeared to be in sinus tachycardia. Heart rate recovered to approximate 120 bpm, but systolic blood pressures were greater than 110. Patient was changed back to critical care status. We will continue to follow. TIME: 55 minutes critical care time spent addressing patient's tachycardia, hypotension, review of all data and collaboration with care team (9:40 AM to 10:50 AM) Code Visit [id number]: [id number] Critical care first hour
[2018-10-31] MEDS: Digoxin 250 MCG/ML Ampul 500 MCG IV (09:36)
--- NOTE | 2018-10-31 10:20 | NURSING ---
pt awake and immediately attempt OOB to go to the BR. x1 assist to BR, sitting on stool bearing down. HR to 200. pt denies c/o. return to bed 0920 HR 190 BP 86/67, Dr Gomez aware 0930 12 lead EKG complete, Patient states that he feels well 0936 0.[address] Gomez speaking w/Dr. Dodson on the phone 0940 Amio Bolus started, Dr Gomez at BS 0945 difficulty w/IV access. after multiple sticks by mult RNs 2 lines accessed. 1025- Dr Dodson at BS, Defibrillator pads applied to patient in anterior/posterior position.
[2018-10-31] MEDS: Adenosine 6 MG/2 ML Syringe 12 MG IV (10:35)
--- NOTE | 2018-10-31 10:40 | NURSING ---
Dr. Dodson and Dr. Gomez present in pt room, speaking w/pt and his family. 1030 HR 187 R 25 BP 88/60 prepare for adenosine 1035 HR 188 R 26 BP 119/68 SpO2 97 6lnc Adenosine 12mg iv rapid push followed by flush 1040 HR 131 R 24 BP 107/58 SpO2 97 6lnc
[2018-10-31] MEDS: Ceftriaxone 1 GM/50 ML BAG IV (11:00)
--- NOTE | 2018-10-31 11:14 | PCM.CONS.C ---
Problem List (1) SVT (supraventricular tachycardia) Status: Acute (2) S/P radiofrequency ablation operation for arrhythmia Status: Chronic (3) Carotid artery disease Status: Chronic Qualifiers: Carotid artery disease type: stenosis Laterality: bilateral Qualified Code(s): I65.23 - Occlusion and stenosis of bilateral carotid arteries (4) Hyperlipidemia Status: Chronic (5) CVA (cerebral vascular accident) Status: Acute (6) Esophageal cancer Status: Chronic Qualifiers: Malignant neoplasm of esophagus location: lower third Qualified Code(s): C15.5 - Malignant neoplasm of lower third of esophagus Reason for Consult Date of Consultation: 10/31/18 History of Present Illness: The patient is a 73 year old white male with a past cardiovascular history which is included some form of arrhythmia status post a radiofrequency ablation-2006, carotid artery disease, hyper lipidemia, who is undergoing evaluation for CVA and ongoing evaluation for esophageal carcinoma. The patient has been going evaluation for concerns of a CVA. He has had various radiologic studies performed. He also had a transthoracic echocardiogram performed. His transthoracic echocardiogram did demonstrate concerns of an extrinsic mass next to and/or partially impinging upon the left atrium. Based upon the [facility] staff this was felt to be related to a history of esophageal carcinoma for which he has been undergoing chemotherapy and radiation therapy with the hopes of undergoing future surgical therapy as well. The patient was subsequently noted to develop a cardiac dysrhythmia this a.m. Based upon his twelve-lead ECG there was concern that was an underlying supraventricular tachycardia. He was noted to complain of feeling poorly and subsequently was noted to have decreased systolic blood pressure. He was evaluated and subsequently treated with IV adenosine-12 mg x1 with subsequent conversion to sinus rhythm/sinus tachycardia with PACs. He was separately noted to feel better and his systolic blood pressure did improve. He has not been complaining of chest pain considered classic for angina pectoris. There is been no overt issues of obvious acute CHF or pulmonary edema. There has been no near syncope or syncope reported. His family members state that he may have undergone remote exercise tolerance test in the past. They do not believe he ever required a diagnostic cardiac catheterization. [] Past Medical History Allergies/Adverse Reactions: Allergies No Known Allergies Allergy (Verified 09/10/18 11:33) Home Medications: Ambulatory Orders Medication Instructions Recorded Lactose-Reduced Food/Fiber 250 ml PO Q2H 10/29/18 [Isosource 1.5 Claus Liquid] RX: Potassium Chloride 20 meq PO BID 10/29/18 Past Medical History (Chronic Problems): Chronic Problems Esophageal cancer (Chronic) Dysphasia (Chronic) S/P radiofrequency ablation operation for arrhythmia (Chronic) Carotid artery disease (Chronic) Migraine (Chronic) Hyperlipidemia (Chronic) History of DVT (Chronic) GERD (Chronic) BPH (Chronic) Alcohol abuse (Chronic) Per family patient drinks about 3-4 beers per day Atrial fibrillation (Chronic) Following with Dr. Carcamo. On Coumadin therapy. Surgical History: noncontributory - *Family History Maternal History Items: No pertinent history Smoking Status: Never smoker Tobacco Use: Non-smoker Alcohol: None Drugs: None Review of Systems - Review of Systems General: Reports: Fever. Denies: Fatigue, Night Sweats Cardiovascular: Denies: Chest Discomfort, Shortness of Breath, Orthopnea, PND, Peripheral Edema, Palpitations, Lightheadedness, Dizziness, Near Syncope, Syncope Respiratory: Denies: Cough, Sputum Production, Hemoptysis Gastrointestinal: Denies: Hematemesis, Hematochezia, Melena Genitourinary: Denies: Dysuria, Hematuria Skin: Denies: Rash Subjectve: This is a 73-year-old white male who appears to be resting reasonably comfortably at the moment in no acute distress. Objective: Vital Signs Temp Pulse Resp BP Pulse Ox 100.0 F H 203 H 18 105/58 L 97 10/31/18 05:35 10/31/18 09:36 10/31/18 05:35 10/31/18 05:35 10/31/18 05:35 Oxygen Flow Rate (L/min) 2 Oxygen Delivery Method Room Air Weight: 173 lb 1.006 oz Body Mass Index (BMI) 24.7 Finger Stick Blood Glucose 99 Intake and Output for Last 24 Hours 10/29/18 10/30/18 10/31/18 23:59 23:59 23:59 Intake Total 742 / 742 1833 / 1833 Output Total 350 / 350 625 / 625 Balance 392 / 392 1208 / 1208 General: Awake, Cooperative, No Acute Distress HEENT: Atraumatic, Normocephalic Neck: Supple, Good ROM, No JVD Lungs: - - Scattered rhonchi Cardiovascular: Regular Rhythm, Premature Ectopic Beats, Normal S1, Normal S2 Abdomen: Bowel Sounds Present, Soft, Non Tender Extremities: No edema Psych/Mental Status: Appropriate 10/30/18 22:50: WBC 2.9 L, RBC 3.20 L, Hgb 10.2 L, Hct 30.3 L, MCV 94.7 H, MCH 31.9, MCHC 33.7, RDW 14.2, RDW Differential 48.7 H, Plt Count 79 L, MPV 9.7, Immature Gran % (Auto) 1.000 H, Neut % (Auto) 89.6 H, Lymph % (Auto) 6.3 L, [place] % (Auto) 3.1, Eos % (Auto) 0.0, Baso % (Auto) 0.0, Absolute Neuts (auto) 2.6, Total Counted Not Reportable 10/31/18 02:13: Urine Color Yellow, Urine Clarity Sl. Cloudy, Urine pH 6.0, Ur Specific [place] 1.020, Urine Protein 30 H, Urine Glucose (UA) Normal, Urine Ketones 5 H, Urine Occult Blood 10 H, Urine Nitrite Negative, Urine Bilirubin Negative, Urine Urobilinogen 1 H, Ur Leukocyte Esterase 25 H, Urine RBC 5-10 SEEN, Urine WBC 0-5 SEEN 10/31/18 04:20: WBC 5.4, RBC 3.19 L, Hgb 10.1 L, Hct 31.2 L, MCV 97.8 H, MCH 31.7, MCHC 32.4, RDW 14.5, RDW Differential 50.8 H, Plt Count 132 L, MPV 9.9, Immature Gran % (Auto) 0.400, Neut % (Auto) 81.9 H, Lymph % (Auto) 12.[address] L, [place] % (Auto) 4.5, Eos % (Auto) 0.2, Baso % (Auto) 0.2, Absolute Neuts (auto) 4.4, Total Counted Not Reportable 10/31/18 04:20: Sodium 137, Potassium 4.4, Chloride 103, Carbon Dioxide 16.0 L, Anion Gap 18 H, BUN 14, Creatinine 1.00, Est GFR (MDRD) Af Amer 95, Est GFR (MDRD) Non-Af 78, BUN/Creatinine Ratio 14.0, Glucose 167 H, Calcium 8.6 EK10/29/2018: Sinus rhythm/sinus tachycardia with occasional premature ectopic complexes with left axis deviation with low voltage QRS in the limb leads, poor R wave progression, nonspecific ST and T wave abnormality: 10/31/2018 at 9:22 hours demonstrating the appearance of an underlying supraventricular tachycardia with a leftward axis with low voltage QRS in the limb leads with nonspecific ST/T wave abnormality: 10/31/2018 at 10:37 hrs demonstrating underlying sinus rhythm/sinus tachycardia with PSVT sees with low voltage QRS in the limb leads with nonspecific ST and T wave abnormality ECHO:10/30/2018 Left ventricle normal with an LVEF 60%; moderate left atrial enlargement; mild right atrial enlargement; mild diffuse mitral valve thickening with trivial MR; trivial TR; mild focal area valve calcification; trivial AI; trivial AR; no evidence for diastolic dysfunction; bubble contrast study negative for right to left intraatrial shunt; 2D echocardiographic images obtained cannot exclude an extensive mass next to and partially impinging upon the left atrium-consider further evaluation with chest CT scan if clinically indicated Assessment/Plan 1. Supraventricular tachycardia The patient appears to have demonstrated evidence of an underlying supraventricular tachycardia. He is now status post IV adenosine with subsequent spontaneous conversion to sinus rhythm with premature ectopic complexes. Following conversion he was noted to have symptomatic improvement and improvement in his systolic blood pressure. His underlying cardiac dysrhythmia may be secondary to multiple contributing factors including concerns of his fever, underlying history of cardiovascular dysrhythmias, potential pulmonary involvement, possible involvement from his underlying carcinoma especially if there is any interaction with his cardiovascular structures, etc. At the present time he will continue to be monitored. He will continue rate limiting therapy as tolerated. If his blood pressure tolerates this could include agents such as beta blockers and/or calcium channel antagonist. Otherwise it may include agents such as digitalis. He is also been placed on antiarrhythmic therapy with IV amiodarone for the time being. He has recently been evaluated for CVA and received thrombolytic therapy. 2. Status post radiofrequency ablation The family states he is undergone radiofrequency ablation potentially 2006. They believe it may have occurred in [place], [place]. The exact arrhythmia for which the patient underwent ablation is uncertain at this time. I do not believe he has had any further cardiovascular diagnostic studies or therapeutic intervention but was continued on medical management including diltiazem therapy. They note that he has not received this since sometime in August 2018 secondary to his difficulty swallowing secondary to his esophageal carcinoma. 3. Carotid artery disease She has been undergoing evaluation for his CVA he was demonstrated to have by radiologic studies evidence of bilateral carotid artery disease. 4. Hyperlipidemia He can continue lipid-lowering therapy as deemed appropriate. 5. CVA Again he has been undergoing evaluation care for a CVA. He did receive thrombolytic therapy. He is being followed by internal medicine, the ICU staff, and neurology. 6. Esophageal carcinoma He does have esophageal carcinoma. He is being followed by Dr. Rangel of [facility]. He is receiving chemotherapy and radiation therapy. The family states that there is hope of future esophageal carcinoma surgery at the [facility] [place]. There is some concern based upon his echocardiographic studies as to whether not any extrinsic mass, which may be related to his esophageal carcinoma, is next to and/or partially impinging upon his left atrium. This may need further evaluation with chest CT scan. Comment: The above was discussed and reviewed with the patient, his family members present, and Dr. Gomez. This note was generated with [employer] dictation software. It may contain incorrect words, spelling, and punctuation that were not noted in checking the note before signing.
[2018-10-31] MEDS: NYSTATIN 500,000 UNIT/5 ML UDC 500000 UNIT PO ×2 (12:24→16:29)
[2018-10-31] MEDS: Acetaminophen 650 MG/20 ML UDC PO ×2 (12:54→22:43)
[2018-10-31] MEDS: Aspirin 325 MG Tablet PO (12:54)
--- NOTE | 2018-10-31 15:32 | NURSING ---
parachute accessories attacher present in pt room, placing PICC
[2018-11-01] VITALS (26 sets, daily range): BP systolic 99–129; BP diastolic 49–70; PULSE 97–123; RESP 19–32; TEMP 36.7–38.6; O2SAT 89–100; BMI 24.7
[2018-11-01 04:18] LABS: Absolute Lymphocyte Count 0.09 X10^3/ul (0.83-4.51); Absolute Neutrophil Count 1.1 X10^3/uL (2.0-7.7); Hematocrit 25.7 % (40-54); Hemoglobin 8.6 g/dl (13.0-16.5); Lymphocyte # 0.09 X10^3/ul (4.0); Lymphocyte % 7.3 % (19-41); Mean Corp Hgb Conc 33.5 g/gl (32-36); Mean Corpuscular Hgb 31.6 pg (27.0-32.0); Mean Corpuscular Volume 94.5 fL (80-94); Mean Platelet Vol. 9.6 fl (6.2-12.0); Monocyte% 8.1 % (0-10); Neutrophil # 1.05 X10^3/uL (2.7-7.7); Neutrophil % 84.6 % (47-70); Platelet Count 60 K/mm3 (150-450); RBC Distribution Width CV 14.3 % (11.6-14.6); RBC Distribution Width SD 49.1 fl (35.1-43.9); Red Blood Count 2.72 M/mm3 (4.6-6.2)
[2018-11-01 04:19] LABS: Anion Gap 12 (5-15); BUN 19 mg/dL (7-18); BUN/Creat Ratio 22.3 RATIO (10-20); Calcium,Total 8.3 mg/dL (8.5-10.1); Chloride 104 mmol/L (98-107); Creatinine, Serum 0.85 mg/dL (0.70-1.30); EST Glomerular Filtration Rate 94 mL/min (>60); Est Glom Filt Rate - Afr Amer 114 mL/min (>60); Glucose 114 mg/dL (74-106); Potassium 3.6 mmol/L (3.5-5.1); Sodium Level 139 mmol/L (136-145)
[2018-11-01 04:21] LABS: Differential Indicated SCAN CRITERIA MET; POSITIVE COUNT YES; POSITIVE DIFFERENTIAL YES; POSITIVE MORPHOLOGY YES
[2018-11-01 04:22] LABS: White Blood Count 1.2 K/mm3 (4.4-11.0)
[2018-11-01 04:34] LABS: Dohle Bodies RARE; Platelet Estimate MOD DEC (ADEQ); Toxic Granulation 1+
--- NOTE | 2018-11-01 06:44 | PCM.PN.INT ---
Subjective: The patient was seen and examined at the bedside this morning. Events from the last 24 hours have been reviewed. The patient is currently afebrile, hemodynamically stable and maintaining appropriate oxygen saturations on room air. The patient is alert and appropriately interactive this morning. He denies any pain complaints or shortness of breath. His only request is for that of water. Objective: The patient's most recent lab work, culture data and imaging studies have all been personally reviewed. Blood cultures dated October 29 have shown no growth to date. General: Alert, Cooperative, No apparent distress HEENT: Atraumatic, PERRLA, Normocephalic Oral: No Gingival or Mucosal Lesions/ Ulcerations Neck: Supple, No Nodes, Trachea Midline Lungs: No rhonchi, No wheeze, No rales, Diminished Cardiovascular: Normal S1, Normal S2, No murmurs, Tachycardic Abdomen: Bowel Sounds Present, Soft, Non Tender Extremities: No clubbing, No cyanosis, No edema Skin: No breakdown Musculoskeletal: No Tenderness to Palpation of Joints or Extremities Lymphatic: No Cervical, Supraclavicular, or Inguinal Adenopathy Neurological: Cranial nerves II-XII grossly intact, Neuro grossly intact Psych/Mental Status: Normal Affect, Appropriate Vital Signs Temp Pulse Resp BP Pulse Ox 36.7 C 110 H 22 H 118/65 99 11/01/18 06:00 11/01/18 06:00 11/01/18 06:00 11/01/18 06:00 11/01/18 06:00 Oxygen Flow Rate (L/min) 2 Oxygen Delivery Method Room Air Weight: 173 lb 11.588 oz Body Mass Index (BMI) 24.7 Finger Stick Blood Glucose 99 Intake and Output for Last 24 Hours 10/30/18 10/31/18 11/01/18 23:59 23:59 23:59 Intake Total 1833 / 1833 401 / 401 135.5 / 135.5 Output Total 625 / 625 165 / 165 150 / 150 Balance 1208 / 1208 236 / 236 -14.5 / -14.5 Labs (Last 48 Hours) 10/30/18 10/31/18 10/31/18 22:50 02:13 04:20 WBC 2.9 L 5.4 RBC 3.20 L 3.19 L Hgb 10.2 L 10.1 L Hct 30.3 L 31.2 L MCV 94.7 H 97.8 H MCH 31.9 31.7 MCHC 33.7 32.4 RDW 14.2 14.5 RDW Differential 48.7 H 50.8 H Plt Count 79 L 132 L MPV 9.7 9.9 Immature Gran % (Auto) 1.000 H 0.400 Neut % (Auto) 89.6 H 81.9 H Lymph % (Auto) 6.3 L 12.8 L [place] % (Auto) 3.1 4.5 Eos % (Auto) 0.0 0.2 Baso % (Auto) 0.0 0.2 Absolute Neuts (auto) 2.6 4.4 Absolute Lymphs (auto) 0.18 L 0.69 L Total Counted Not Reportable Not Reportable Differential Comment Diff Path Review May foll Toxic Granulation RARE 1+ Dohle Bodies RARE RARE Platelet Estimate Sodium Potassium Chloride Carbon Dioxide Anion Gap BUN Creatinine Estim Creat Clear Calc Est GFR (MDRD) Af Amer Est GFR (MDRD) Non-Af BUN/Creatinine Ratio Glucose Calcium Urine Color Yellow Urine Clarity Sl. Cloudy Urine pH 6.0 Ur Specific [place] 1.020 Urine Protein 30 H Urine Glucose (UA) Normal Urine Ketones 5 H Urine Occult Blood 10 H Urine Nitrite Negative Urine Bilirubin Negative Urine Urobilinogen 1 H Ur Leukocyte Esterase 25 H Urine RBC 5-10 SEEN Urine WBC 0-5 SEEN Ur Squamous Epith Cells 0-5 SEEN Amorphous Sediment 1+ Urine Bacteria 0 SEEN Urine Mucus 0 SEEN 10/31/18 11/01/18 11/01/18 04:20 03:55 03:55 WBC 1.2 L* RBC 2.72 L Hgb 8.6 L Hct 25.7 L MCV 94.5 H MCH 31.6 MCHC 33.5 RDW 14.3 RDW Differential 49.1 H Plt Count 60 L MPV 9.6 Immature Gran % (Auto) 0.000 Neut % (Auto) 84.6 H Lymph % (Auto) 7.3 L [place] % (Auto) 8.1 Eos % (Auto) 0.0 Baso % (Auto) 0.0 Absolute Neuts (auto) 1.1 L Absolute Lymphs (auto) 0.09 L Total Counted Not Reportable Differential Comment Diff Path Review May foll Toxic Granulation 1+ Dohle Bodies RARE Platelet Estimate MOD DEC Sodium 137 139 Potassium 4.4 3.6 Chloride 103 104 Carbon Dioxide 16.0 L 23.0 Anion Gap 18 H 12 BUN 14 19 H Creatinine 1.00 0.85 Estim Creat Clear Calc 72.16 84.90 Est GFR (MDRD) Af Amer 95 114 Est GFR (MDRD) Non-Af 78 94 BUN/Creatinine Ratio 14.0 22.3 H Glucose 167 H 114 H Calcium 8.6 8.3 L Urine Color Urine Clarity Urine pH Ur Specific [place] Urine Protein Urine Glucose (UA) Urine Ketones Urine Occult Blood Urine Nitrite Urine Bilirubin Urine Urobilinogen Ur Leukocyte Esterase Urine RBC Urine WBC Ur Squamous Epith Cells Amorphous Sediment Urine Bacteria Urine Mucus Microbiology 10/29/18 13:17 Blood Culture (Wb) - Anticubital Right Blood Culture - Preliminary No growth in 48 hours. Clinical Impression(s) from Imaging Studies Brain CT 10/29/18 09:53 IMPRESSION: Chronic involutional changes of the brain. N.B. : The above information has been verbally conveyed by Addison Rogers MD to Maurice Wilde on 10/29/2018 10:24:08 (ET). Electronically Signed: Addison Rogers MD at 10:25 EST Tel [phone], Service support , Chest X-Ray 10/29/18 09:53 IMPRESSION: Focal area of increased markings in the right midlung. Follow-up is recommended. Electronically Signed: Addison Rogers MD at 10:27 EST Tel [phone], Service support , Head CTA 10/29/18 10:48 IMPRESSION: Normal [place] without a demonstrated aneurysm or hemodynamically significant stenosis. Electronically Signed: Mathew Mills MD at 12:37 EST , Service support , Neck CTA 10/29/18 10:48 IMPRESSION: Atherosclerotic plaque formation at the right carotid bifurcation causing between 50 and 69% stenosis. Electronically Signed: Addison Rogers MD at 13:15 EST Tel [phone], Service support , Brain MRI 10/30/18 11:00 IMPRESSION: Acute left occipital infarct. N.B. : The above information has been verbally conveyed by Echo Hutchison MD to RN Jackelyn Mandujano RN, on 10/30/2018 13:34:35 (ET). Electronically Signed: Echo Hutchison MD at 12:21 EST Tel , Service support , Brain CT 10/30/18 15:20 IMPRESSION: Chronic involutional changes of the brain. There are no acute findings. Electronically Signed: Brian Moran MD at 17:51 EST , Service support , Medical Necessity - Tobacco Use Smoking Status: Never smoker Tobacco Use: Non-smoker Assessment/Plan All Active Problems CVA (cerebral vascular accident) (Acute) SVT (supraventricular tachycardia) (Acute) RECOMMENDATIONS: 1. Continue antiarrhythmic therapy per cardiology recommendations. 2. Transition from ceftriaxone to Augmentin. 3. Speech therapy reevaluation today. 4. If the patient is not deemed to be a candidate to take in nutrition by mouth, will need to consider replacing Dobbhoff feeding tube. IMPRESSIONS: 1. Acute CVA status post TPA The patient has stabilized at this time. Continue medical management per neurology recommendations. The patient remains hemodynamically stable. Nutrition concerns to be addressed, once reevaluated by speech therapy. The patient may require replacement of his Dobbhoff. 2. Sepsis secondary to presumptive sinusitis Appears to be improving clinically. The patient is currently afebrile and hemodynamically stable. He can be transitioned from IV ceftriaxone to Augmentin to complete a treatment course. 3. Supraventricular tachycardia/atrial fibrillation The patient has responded appropriately to the use of amiodarone. Cardiology is following. Continue rate/rhythm control strategy per recommendations. 4. History of alcohol abuse/advanced age/esophageal cancer/GERD/BPH/hyperlipidemia/pancytopenia Complicates care, management, recovery and prognosis. Likely okay to continue home medications. Physical therapy to work with patient today. This note was generated with [employer] dictation software. It may contain incorrect words, spelling, and punctuation that were not noted in checking the note before signing. Code Visit Inpatient E&M: 29453 Subs Hosp L3
--- NOTE | 2018-11-01 06:49 | PN_ITS ---
Subjective: The patient was seen and examined at the bedside this morning. Events from the last 24 hours have been reviewed. The patient is currently afebrile, hemodynamically stable and maintaining appropriate oxygen saturations on room air. The patient is alert and appropriately interactive this morning. He denies any pain complaints or shortness of breath. His only request is for that of water. Objective: The patient's most recent lab work, culture data and imaging studies have all been personally reviewed. Blood cultures dated October 29 have shown no growth to date. General: Alert, Cooperative, No apparent distress HEENT: Atraumatic, PERRLA, Normocephalic Oral: No Gingival or Mucosal Lesions/ Ulcerations Neck: Supple, No Nodes, Trachea Midline Lungs: No rhonchi, No wheeze, No rales, Diminished Cardiovascular: Normal S1, Normal S2, No murmurs, Tachycardic Abdomen: Bowel Sounds Present, Soft, Non Tender Extremities: No clubbing, No cyanosis, No edema Skin: No breakdown Musculoskeletal: No Tenderness to Palpation of Joints or Extremities Lymphatic: No Cervical, Supraclavicular, or Inguinal Adenopathy Neurological: Cranial nerves II-XII grossly intact, Neuro grossly intact Psych/Mental Status: Normal Affect, Appropriate Vital Signs Temp Pulse Resp BP Pulse Ox 36.7 C 110 H 22 H 118/65 99 11/01/18 06:00 11/01/18 06:00 11/01/18 06:00 11/01/18 06:00 11/01/18 06:00 Oxygen Flow Rate (L/min) 2 Oxygen Delivery Method Room Air Weight: 173 lb 11.588 oz Body Mass Index (BMI) 24.7 Finger Stick Blood Glucose 99 Intake and Output for Last 24 Hours 10/30/18 10/31/18 11/01/18 23:59 23:59 23:59 Intake Total 1833 / 1833 401 / 401 135.5 / 135.5 Output Total 625 / 625 165 / 165 150 / 150 Balance 1208 / 1208 236 / 236 -14.5 / -14.5 Labs (Last 48 Hours) 10/30/18 10/31/18 10/31/18 22:50 02:13 04:20 WBC 2.9 L 5.4 RBC 3.20 L 3.19 L Hgb 10.2 L 10.1 L Hct 30.3 L 31.2 L MCV 94.7 H 97.8 H MCH 31.9 31.7 MCHC 33.7 32.4 RDW 14.2 14.5 RDW Differential 48.7 H 50.8 H Plt Count 79 L 132 L MPV 9.7 9.9 Immature Gran % (Auto) 1.000 H 0.400 Neut % (Auto) 89.6 H 81.9 H Lymph % (Auto) 6.3 L 12.8 L [place] % (Auto) 3.1 4.5 Eos % (Auto) 0.0 0.2 Baso % (Auto) 0.0 0.2 Absolute Neuts (auto) 2.6 4.4 Absolute Lymphs (auto) 0.18 L 0.69 L Total Counted Not Reportable Not Reportable Differential Comment Diff Path Review May foll Toxic Granulation RARE 1+ Dohle Bodies RARE RARE Platelet Estimate Sodium Potassium Chloride Carbon Dioxide Anion Gap BUN Creatinine Estim Creat Clear Calc Est GFR (MDRD) Af Amer Est GFR (MDRD) Non-Af BUN/Creatinine Ratio Glucose Calcium Urine Color Yellow Urine Clarity Sl. Cloudy Urine pH 6.0 Ur Specific [place] 1.020 Urine Protein 30 H Urine Glucose (UA) Normal Urine Ketones 5 H Urine Occult Blood 10 H Urine Nitrite Negative Urine Bilirubin Negative Urine Urobilinogen 1 H Ur Leukocyte Esterase 25 H Urine RBC 5-10 SEEN Urine WBC 0-5 SEEN Ur Squamous Epith Cells 0-5 SEEN Amorphous Sediment 1+ Urine Bacteria 0 SEEN Urine Mucus 0 SEEN 10/31/18 11/01/18 11/01/18 04:20 03:55 03:55 WBC 1.2 L* RBC 2.72 L Hgb 8.6 L Hct 25.7 L MCV 94.5 H MCH 31.6 MCHC 33.5 RDW 14.3 RDW Differential 49.1 H Plt Count 60 L MPV 9.6 Immature Gran % (Auto) 0.000 Neut % (Auto) 84.6 H Lymph % (Auto) 7.3 L [place] % (Auto) 8.1 Eos % (Auto) 0.0 Baso % (Auto) 0.0 Absolute Neuts (auto) 1.1 L Absolute Lymphs (auto) 0.09 L Total Counted Not Reportable Differential Comment Diff Path Review May foll Toxic Granulation 1+ Dohle Bodies RARE Platelet Estimate MOD DEC Sodium 137 139 Potassium 4.4 3.6 Chloride 103 104 Carbon Dioxide 16.0 L 23.0 Anion Gap 18 H 12 BUN 14 19 H Creatinine 1.00 0.85 Estim Creat Clear Calc 72.16 84.90 Est GFR (MDRD) Af Amer 95 114 Est GFR (MDRD) Non-Af 78 94 BUN/Creatinine Ratio 14.0 22.3 H Glucose 167 H 114 H Calcium 8.6 8.3 L Urine Color Urine Clarity Urine pH Ur Specific [place] Urine Protein Urine Glucose (UA) Urine Ketones Urine Occult Blood Urine Nitrite Urine Bilirubin Urine Urobilinogen Ur Leukocyte Esterase Urine RBC Urine WBC Ur Squamous Epith Cells Amorphous Sediment Urine Bacteria Urine Mucus Microbiology 10/29/18 13:17 Blood Culture (Wb) - Anticubital Right Blood Culture - Preliminary No growth in 48 hours. Clinical Impression(s) from Imaging Studies Brain CT 10/29/18 09:53 IMPRESSION: Chronic involutional changes of the brain. N.B. : The above information has been verbally conveyed by Addison Rogers MD to Maurice Wilde on 10/29/2018 10:24:08 (ET). Electronically Signed: Addison Rogers MD at 10:25 EST Tel [phone], Service support , Chest X-Ray 10/29/18 09:53 IMPRESSION: Focal area of increased markings in the right midlung. Follow-up is recommended. Electronically Signed: Addison Rogers MD at 10:27 EST Tel [phone], Service support , Head CTA 10/29/18 10:48 IMPRESSION: Normal [place] without a demonstrated aneurysm or hemodynamically significant stenosis. Electronically Signed: Mathew Mills MD at 12:37 EST , Service support , Neck CTA 10/29/18 10:48 IMPRESSION: Atherosclerotic plaque formation at the right carotid bifurcation causing between 50 and 69% stenosis. Electronically Signed: Addison Rogers MD at 13:15 EST Tel [phone], Service support , Brain MRI 10/30/18 11:00 IMPRESSION: Acute left occipital infarct. N.B. : The above information has been verbally conveyed by Echo Hutchison MD to RN Jackelyn Mandujano RN, on 10/30/2018 13:34:35 (ET). Electronically Signed: Echo Hutchison MD at 12:21 EST Tel , Service support , Brain CT 10/30/18 15:20 IMPRESSION: Chronic involutional changes of the brain. There are no acute findings. Electronically Signed: Brian Moran MD at 17:51 EST , Service support , Medical Necessity - Tobacco Use Smoking Status: Never smoker Tobacco Use: Non-smoker Assessment/Plan All Active Problems CVA (cerebral vascular accident) (Acute) SVT (supraventricular tachycardia) (Acute) RECOMMENDATIONS: 1. Continue antiarrhythmic therapy per cardiology recommendations. 2. Transition from ceftriaxone to Augmentin. 3. Speech therapy reevaluation today. 4. If the patient is not deemed to be a candidate to take in nutrition by mouth, will need to consider replacing Dobbhoff feeding tube. IMPRESSIONS: 1. Acute CVA status post TPA The patient has stabilized at this time. Continue medical management per neurology recommendations. The patient remains hemodynamically stable. Nutrition concerns to be addressed, once reevaluated by speech therapy. The patient may require replacement of his Dobbhoff. 2. Sepsis secondary to presumptive sinusitis Appears to be improving clinically. The patient is currently afebrile and hemodynamically stable. He can be transitioned from IV ceftriaxone to Augmentin to complete a treatment course. 3. Supraventricular tachycardia/atrial fibrillation The patient has responded appropriately to the use of amiodarone. Cardiology is following. Continue rate/rhythm control strategy per recommendations. 4. History of alcohol abuse/advanced age/esophageal cancer/GERD/BPH/hyperlipidemia/pancytopenia Complicates care, management, recovery and prognosis. Likely okay to continue home medications. Physical therapy to work with patient today. This note was generated with [employer] dictation software. It may contain incorrect words, spelling, and punctuation that were not noted in checking the note before signing. Code Visit Inpatient E&M: 06901 Subs Hosp L3
--- NOTE | 2018-11-01 09:12 | PCM.PN.CARD ---
Subjectve: The patient appears to be awake and alert. He denies any ongoing chest discomfort or difficulty breathing at this time. He does not appear descensus underlying cardiac rate and rhythm. Objective: Vital Signs Temp Pulse Resp BP Pulse Ox 98.1 F 110 H 22 H 118/65 99 11/01/18 06:00 11/01/18 06:00 11/01/18 06:00 11/01/18 06:00 11/01/18 06:00 Oxygen Flow Rate (L/min) 2 Oxygen Delivery Method Room Air Weight: 173 lb 11.588 oz Body Mass Index (BMI) 24.7 Finger Stick Blood Glucose 99 Intake and Output for Last 24 Hours 10/30/18 10/31/18 11/01/18 23:59 23:59 23:59 Intake Total 1833 / 1833 401 / 401 297.5 / 297.5 Output Total 625 / 625 165 / 165 400 / 400 Balance 1208 / 1208 236 / 236 -102.5 / -102.5 General: Awake, Cooperative, No Acute Distress HEENT: Atraumatic Oral: Moist Mucosa Neck: No JVD Lungs: - - No obvious rales or rhonchi Cardiovascular: Regular Rhythm, Premature Ectopic Beats, Normal S1, Normal S2 Abdomen: Bowel Sounds Present, Soft Extremities: No edema Psych/Mental Status: Appropriate 11/01/18 03:55: Sodium 139, Potassium 3.6, Chloride 104, Carbon Dioxide 23.0, Anion Gap 12, BUN 19 H, Creatinine 0.85, Est GFR (MDRD) Af Amer 114, Est GFR (MDRD) Non-Af 94, BUN/Creatinine Ratio 22.3 H, Glucose 114 H, Calcium 8.3 L 11/01/18 03:55: WBC 1.2 L*, RBC 2.72 L, Hgb 8.6 L, Hct 25.7 L, MCV 94.5 H, MCH 31.6, MCHC 33.5, RDW 14.3, RDW Differential 49.1 H, Plt Count 60 L, MPV 9.6, Immature Gran % (Auto) 0.000, Neut % (Auto) 84.6 H, Lymph % (Auto) 7.3 L, [place] % (Auto) 8.1, Eos % (Auto) 0.0, Baso % (Auto) 0.0, Absolute Neuts (auto) 1.1 L, Total Counted Not Reportable Rhythm:Sinus rhythm/sinus tachycardia; PVCs Medical Necessity - Tobacco Use Smoking Status: Never smoker Tobacco Use: Non-smoker Assessment/Plan 1. Supraventricular tachycardia The patient appears to have demonstrated evidence of an underlying supraventricular tachycardia. He is now status post IV adenosine with subsequent spontaneous conversion to sinus rhythm with premature ectopic complexes. Following conversion he was noted to have symptomatic improvement and improvement in his systolic blood pressure. His underlying cardiac dysrhythmia may be secondary to multiple contributing factors including concerns of his fever, underlying history of cardiovascular dysrhythmias, potential pulmonary involvement, possible involvement from his underlying carcinoma especially if there is any interaction with his cardiovascular structures, etc. At the present time he will continue to be monitored. He will attempt rate limiting therapy with beta blockers. If he cannot swallow his medications appropriately then he will have to be considered for an alternative options either via some form of feeding tube or intravenously. His IV amiodarone will complete and then be discontinued. 2. Status post radiofrequency ablation The family states he is undergone radiofrequency ablation potentially 2006. They believe it may have occurred in [place], [place]. The exact arrhythmia for which the patient underwent ablation is uncertain at this time. At the present time an attempt will be made to control his SVT with medical management such as beta estuardo therapy and or calcium channel antagonist therapy. Depending upon his course he may need antiarrhythmic therapy. Ideally it appears this would be a re-entry mechanism tachycardia that would be amenable to EPS/RFA. However that may have to be considered in the future following his ongoing evaluation care for his esophageal carcinoma. 3. Carotid artery disease She has been undergoing evaluation for his CVA he was demonstrated to have by radiologic studies evidence of bilateral carotid artery disease. 4. Hyperlipidemia He can continue lipid-lowering therapy as deemed appropriate. 5. CVA Again he has been undergoing evaluation care for a CVA. He did receive thrombolytic therapy. He is being followed by internal medicine, the ICU staff, and neurology. 6. Esophageal carcinoma He does have esophageal carcinoma. He is being followed by Dr. Rangel of [facility]. He is receiving chemotherapy and radiation therapy. The family states that there is hope of future esophageal carcinoma surgery at the [facility]. There is some concern based upon his echocardiographic studies as to whether not any extrinsic mass, which may be related to his esophageal carcinoma, is next to and/or partially impinging upon his left atrium. This may need further evaluation with chest CT scan. This note was generated with [email or web address] dictation software. It may contain incorrect words, spelling, and punctuation that were not noted in checking the note before signing.
--- NOTE | 2018-11-01 09:15 | PN.CARD_ITS ---
Subjectve: The patient appears to be awake and alert. He denies any ongoing chest discomfort or difficulty breathing at this time. He does not appear descensus u nderlying cardiac rate and rhythm. Objective: Vital Signs Temp Pulse Resp BP Pulse Ox 98.1 F 110 H 22 H 118/65 99 11/01/18 06:00 11/01/18 06:00 11/01/18 06:00 11/01/18 06:00 11/01/18 06:00 Oxygen Flow Rate (L/min) 2 Oxygen Delivery Method Room Air Weight: 173 lb 11.588 oz Body Mass Index (BMI) 24.7 Finger Stick Blood Glucose 99 Intake and Output for Last 24 Hours 10/30/18 10/31/18 11/01/18 23:59 23:59 23:59 Intake Total 1833 / 1833 401 / 401 297.5 / 297.5 Output Total 625 / 625 165 / 165 400 / 400 Balance 1208 / 1208 236 / 236 -102.5 / -102.5 General: Awake, Cooperative, No Acute Distress HEENT: Atraumatic Oral: Moist Mucosa Neck: No JVD Lungs: - - No obvious rales or rhonchi Cardiovascular: Regular Rhythm, Premature Ectopic Beats, Normal S1, Normal S2 Abdomen: Bowel Sounds Present, Soft Extremities: No edema Psych/Mental Status: Appropriate 11/01/18 03:55: Sodium 139, Potassium 3.6, Chloride 104, Carbon Dioxide 23.0, Anion Gap 12, BUN 19 H, Creatinine 0.85, Est GFR (MDRD) Af Amer 114, Est GFR (MDRD) Non-Af 94, BUN/Creatinine Ratio 22.3 H, Glucose 114 H, Calcium 8.3 L 11/01/18 03:55: WBC 1.2 L*, RBC 2.72 L, Hgb 8.6 L, Hct 25.7 L, MCV 94.5 H, MCH 31.6, MCHC 33.5, RDW 14.3, RDW Differential 49.1 H, Plt Count 60 L, MPV 9.6, Immature Gran % (Auto) 0.000, Neut % (Auto) 84.6 H, Lymph % (Auto) 7.3 L, [place] % (Auto) 8.1, Eos % (Auto) 0.0, Baso % (Auto) 0.0, Absolute Neuts (auto) 1.1 L, Total Counted Not Reportable Rhythm:Sinus rhythm/sinus tachycardia; PVCs Medical Necessity - Tobacco Use Smoking Status: Never smoker Tobacco Use: Non-smoker Assessment/Plan 1. Supraventricular tachycardia The patient appears to have demonstrated evidence of an underlying supraventricular tachycardia. He is now status post IV adenosine with subseque nt spontaneous conversion to sinus rhythm with premature ectopic complexes. Following conversion he was noted to have symptomatic improvement and improvement in his systolic blood pressure. His underlying cardiac dysrhythmia may be secondary to multiple contributing factors including concerns of his fever, underlying history of cardiovascular dysrhythmias, potential pulmonary involvement, possible involvement from his underlying carcinoma especially if there is any interaction with his cardiovascular structures, etc. At the present time he will continue to be monitored. He will attempt rate limiting therapy with beta blockers. If he cannot swallow his medications appropriately then he will have to be considered for an alternative options either via some form of feeding tube or intravenously. His IV amiodarone will complete and then be discontinued. 2. Status post radiofrequency ablation The family states he is undergone radiofrequency ablation potentially 2006. They believe it may have occurred in [place], [place]. The exact arrhythmia for which the patient underwent ablation is uncertain at this time. At the present time an attempt will be made to control his SVT with medical management such as beta estuardo therapy and or calcium channel antagonist therapy. Depending upon his course he may need antiarrhythmic therapy. Ideally it appears this would be a re-entry mechanism tachycardia that would be amenable to EPS/RFA. However that may have to be considered in the future following his ongoing evaluation care for his esophageal carcinoma. 3. Carotid artery disease She has been undergoing evaluation for his CVA he was demonstrated to have by radiologic studies evidence of bilateral carotid artery disease. 4. Hyperlipidemia He can continue lipid-lowering therapy as deemed appropriate. 5. CVA Again he has been undergoing evaluation care for a CVA. He did receive thrombolytic therapy. He is being followed by internal medicine, the ICU staff, and neurology. 6. Esophageal carcinoma He does have esophageal carcinoma. He is being followed by Dr. Rangel of [facility]. He is receiving chemotherapy and radiation therapy. The family states that there is hope of future esophageal carcinoma surgery at the [facility] Main campus. There is some concern based upon his echocardiographic studies as to whether not any extrinsic mass, which may be related to his esophageal carcinoma, is next to and/or partially impinging upon his left atrium. This may need further evaluation with chest CT scan. This note was generated with [employer] dictation software. It may contain incorrect words, spelling, and punctuation that were not noted in checking the note before signing.
--- NOTE | 2018-11-01 12:21 | PCM.PN.NEU ---
Subjective: No Issues overnight. Patient pulled out NGT over the weekend, also had episode of SVT, seen by Cardiology who does not mention patient has Afib, also family not clear if he had Afib, patient's symptoms improved with Adenosine. - Physical Exam General: Alert HEENT: Normocephalic Neck: Supple Lungs: Normal air movement Cardiovascular: Normal S1, Normal S2 Abdomen: Bowel Sounds Present Extremities: No cyanosis Neurological: - - consious, awake, CN 2-12 grossly intact, power 5/5 all 4 extremities, no sensory loss, no cerebellar signs, Reflexes + B/L B/S/T/K/A, gait deferred, no dysarthria at present. NIHSS 0 at present Psych/Mental Status: Normal Affect Vital Signs Temp Pulse Resp BP Pulse Ox 99.4 F H 115 H 28 H 108/62 98 11/01/18 10:00 11/01/18 10:00 11/01/18 10:00 11/01/18 10:00 11/01/18 10:00 Oxygen Flow Rate (L/min) 2 Oxygen Delivery Method Room Air Weight: 78.8 kg Body Mass Index (BMI) 24.7 Finger Stick Blood Glucose 99 Intake and Output for Last 24 Hours 10/30/18 10/31/18 11/01/18 23:59 23:59 23:59 Intake Total 1833 / 1833 401 / 401 297.5 / 297.5 Output Total 625 / 625 165 / 165 400 / 400 Balance 1208 / 1208 236 / 236 -102.5 / -102.5 Microbiology Past 72 Hours 10/29/18 13:17 Blood Culture - Preliminary Blood Culture (Wb) - Anticubital Right No growth in 48 hours. Laboratory Tests Past 24 Hrs 11/01/18 11/01/18 03:55 03:55 WBC 1.2 L* RBC 2.72 L Hgb 8.6 L Hct 25.7 L MCV 94.5 H MCH 31.6 MCHC 33.5 RDW 14.3 RDW Differential 49.1 H Plt Count 60 L MPV 9.6 Immature Gran % (Auto) 0.000 Neut % (Auto) 84.6 H Lymph % (Auto) 7.3 L [place] % (Auto) 8.1 Eos % (Auto) 0.0 Baso % (Auto) 0.0 Absolute Neuts (auto) 1.1 L Absolute Lymphs (auto) 0.09 L Total Counted Not Reportable Differential Comment Diff Path Review May foll Toxic Granulation 1+ Dohle Bodies RARE Platelet Estimate MOD DEC Sodium 139 Potassium 3.6 Chloride 104 Carbon Dioxide 23.0 Anion Gap 12 BUN 19 H Creatinine 0.85 Estim Creat Clear Calc 84.90 Est GFR (MDRD) Af Amer 114 Est GFR (MDRD) Non-Af 94 BUN/Creatinine Ratio 22.3 H Glucose 114 H Calcium 8.3 L Medical Necessity - Tobacco Use Smoking Status: Never smoker Tobacco Use: Non-smoker Assessment/Plan All Active Problems CVA (cerebral vascular accident) (Acute) SVT (supraventricular tachycardia) (Acute) 73 yr M with PMH HLD, Mediastinal hugh-esophageal mass, s/p chemotherapy and radiation, complicated by pancytopenia, ? PAfib was on Coumadin-changed to Lovenox due to dysphagia, but patient non compliant, ?dementia, H/O DVT, H/O ETOH abuse admitted with aphasia, s/p tpa, symptoms resolved post tpa. MRI brain done showed acute small left occipital infarct. CTA head/neck showed right ICA 50-69% stenosis. NIHSS 0 at present. Impression Aphasia Acute Left Occipital infarct Right ICA 50-69% stenosis Plan -MRI brain and CTA head/neck reviewed -Check CT head w/o contrast -Since Cardiology is not sure if patient had Afib or not in the past, no previous records available, here patient had SVT treated with adenosine, reverting back to sinus rhythm, consider ASA for secondary stroke prevention. On discussion with hospitalist Dr. Ronquillo he may need to be on AC from his hypercoagulable state from his malignancy which is okay to be started from stroke stand point if there is no contraindication from medical stand point. IF AC is started, can stop ASA at that time. And in case it is determined patient had H/O Afib/PAF then patient should be on Eliquis 5 mg PO BID for secondary stroke prevention. -Lipitor 80 mg PO q hs -LDL-63, check Hba1c -TTE-EF 60%, moderately dilated LA. -Check Vitamin B12, TSH. Further dementia work up as outpatient. -Vascular surgery consult -PT/OT/ST -GI/DVT prophylaxis -Stroke risk factors discussed and stroke education provided -Goal BP < 130/80 mmHg and Hba1c < 7% -Avoid hypotension -Patient counseled to quit smoking and drinking alcohol -Further medical management per hospitalist/oncology and ICU team -Follow up with Neurology as outpatient in 4 weeks -Please call with questions if any -Thank you for allowing us to participate in patient's care and management
[2018-11-01] MEDS: Acetaminophen 650 MG Suppository RECTAL (12:47)
[2018-11-01 13:08] LABS: Thyroid Stim Hormone (TSH) 1.19 uIU/mL (0.358-3.74)
[2018-11-01 13:10] LABS: Hemoglobin A1c 6.1 % (4.2-6.3)
[2018-11-01 13:29] LABS: Vitamin B12 268 pg/mL (211-911)
--- NOTE | 2018-11-01 14:31 | CASEMGMT ---
RN CM Note: Speech therapy recommending NPO, pt to have Barium Swallow prior to replacing dobhoff tube. Bilingual Receptionist recommendation for TF given- Jevity 1.5 lucina 6x per day with 90 ml free water flush before and after each bolus. . Pt had been on TF @ home- Isosource 1.5 (close equivalent for Jevity 1.5- provided by [employer]). If tube feed for home changes, will need new script. Note mentioned request for TF pump. Call to Jazmine @ [employer]. TF pump will only be approved through insurance if hoistman documents need for continuous feedings because pt cannot tolerate intermittent or medical reason continuous feedings are contraindicated. -OT did bed exercises only today. Will review PT/OT notes tomorrow to see activity level re: dc to home vs SNF. Pt had been at home prior and was independent. CM will continue to follow and assist with dc planning needs. Jennifer BUNDY RN ACM
[2018-11-01 14:43] LABS: Pathologist Review Reviewed
[2018-11-01 14:46] LABS: Pathologist Review Reviewed
[2018-11-01 14:48] LABS: Pathologist Review Reviewed
--- NOTE | 2018-11-01 15:04 | CHAPLAIN ---
Type of Pastoral Visit _x__ Initial Visit ___ Follow-up Visit ___ On-call Visit ___ General Patient Visit ___ Spiritual Assessment ___ Family Conference ___ Bereavement ___ Rapid Response ___ Code Blue ___ Other (describe below) Pastoral Care Referral From ___ Patient ___ Family _x__ Nurse ___ Physician ___ Distribution Driver ___ Surface To Air Weapons Officer ___ Other (describe below) Sacrament/Intervention _x__ Active listening ___ Anointing ___ Rastafari ___ Bereavement ___ Communion ___ Evangelina exploration ___ ___ Life review ___ Prayer ___ Reconciliation ___ Sacrament of Sick _x__ Supportive presence ___ Wedding ___ Other (describe below) Pastoral Comments RN recommended that patient would like to visit with someone; casual conversation; pt did not seek further support
[2018-11-01] MEDS: Dext 5%-0.45% NS 1,000 ML 125 ML IV ×2 (16:14→23:50)
[2018-11-01] MEDS: Metoprolol Tartrate 5 MG/5 ML Vial IV (18:13)
--- NOTE | 2018-11-01 18:35 | PN_ITS ---
Patient Problems: Active and Suspected Problems CVA (cerebral vascular accident) (Acute) SVT (supraventricular tachycardia) (Acute) Subjective: Patient was seen and examined today, I talked with Dr. Rangel by phone concerning his care, I also talked with cardiology and neurology. Patient was transferred to stepdown status on PCU although at this time he still remains in ICU. I talk with speech therapy today about his care, speech therapy recommended a barium swallow tomorrow to see if the patient was safe for oral intake. I talked to the patient briefly today, he states he is aware that he had a stroke, I did not detect any dysarthria or speech problems today. - Physical Exam General: Alert, Oriented x3, Cooperative, No apparent distress, Well developed, Well nourished HEENT: Atraumatic, PERRLA, EOMI, Normocephalic Oral: Moist Mucosa Neck: Supple, Trachea Midline, Thyroid Normal Size and Texture Lungs: Clear to auscultation, Normal air movement, No rhonchi, No wheeze, No rales Cardiovascular: Regular rate, Regular Rhythm, Normal S1, Normal S2, No murmurs, PMI Normal, No rub noted, No Gallop, - - Premature ectopic beats were noted Abdomen: Bowel Sounds Present, Soft, Non Tender, Non-Distended, No hernias noted Extremities: No clubbing, No cyanosis, No edema, Capillary Refill Less than 3 Seconds Skin: No rashes, No breakdown Musculoskeletal: No Tenderness to Palpation of Joints or Extremities Neurological: Cranial nerves II-XII grossly intact, Neuro grossly intact, Sensory exam intact to light touch and pain, Coordination normal Psych/Mental Status: Normal Affect, Appropriate, Alert and oriented to time, place, person, mood and affect Vital Signs Temp Pulse Resp BP Pulse Ox 98.7 F 109 H 23 H 119/65 95 11/01/18 18:00 11/01/18 18:13 11/01/18 18:00 11/01/18 18:13 11/01/18 18:00 Oxygen Flow Rate (L/min) 2 Oxygen Delivery Method Room Air Weight: 78.8 kg Body Mass Index (BMI) 24.7 Finger Stick Blood Glucose 99 Intake and Output for Last 24 Hours 10/30/18 10/31/18 11/01/18 23:59 23:59 23:59 Intake Total 1833 / 1833 401 / 401 703.5 / 703.5 Output Total 625 / 625 165 / 165 580 / 580 Balance 1208 / 1208 236 / 236 123.5 / 123.5 Microbiology Past 72 Hours 10/29/18 13:17 Blood Culture - Preliminary Blood Culture (Wb) - Anticubital Right No growth in 48 hours. Laboratory Tests Past 24 Hrs 10/29/18 10/30/18 11/01/18 09:45 22:50 03:55 WBC RBC Hgb Hct MCV MCH MCHC RDW RDW Differential Plt Count MPV Immature Gran % (Auto) Neut % (Auto) Lymph % (Auto) [place] % (Auto) Eos % (Auto) Baso % (Auto) Absolute Neuts (auto) Absolute Lymphs (auto) Total Counted Differential Comment Diff Path Review Reviewed Reviewed Toxic Granulation Dohle Bodies Platelet Estimate Sodium 139 Potassium 3.6 Chloride 104 Carbon Dioxide 23.0 Anion Gap 12 BUN 19 H Creatinine 0.85 Estim Creat Clear Calc 84.90 Est GFR (MDRD) Af Amer 114 Est GFR (MDRD) Non-Af 94 BUN/Creatinine Ratio 22.3 H Glucose 114 H Hemoglobin A1c Calcium 8.3 L Vitamin B12 TSH 11/01/18 11/01/18 11/01/18 03:55 03:55 03:55 WBC 1.2 L* RBC 2.72 L Hgb 8.6 L Hct 25.7 L MCV 94.5 H MCH 31.6 MCHC 33.5 RDW 14.3 RDW Differential 49.1 H Plt Count 60 L MPV 9.6 Immature Gran % (Auto) 0.000 Neut % (Auto) 84.6 H Lymph % (Auto) 7.3 L [place] % (Auto) 8.1 Eos % (Auto) 0.0 Baso % (Auto) 0.0 Absolute Neuts (auto) 1.1 L Absolute Lymphs (auto) 0.09 L Total Counted Not Reportable Differential Comment Diff Path Review Reviewed Toxic Granulation 1+ Dohle Bodies RARE Platelet Estimate MOD DEC Sodium Potassium Chloride Carbon Dioxide Anion Gap BUN Creatinine Estim Creat Clear Calc Est GFR (MDRD) Af Amer Est GFR (MDRD) Non-Af BUN/Creatinine Ratio Glucose Hemoglobin A1c 6.1 Calcium Vitamin B12 TSH 1.19 11/01/18 12:55 WBC RBC Hgb Hct MCV MCH MCHC RDW RDW Differential Plt Count MPV Immature Gran % (Auto) Neut % (Auto) Lymph % (Auto) [place] % (Auto) Eos % (Auto) Baso % (Auto) Absolute Neuts (auto) Absolute Lymphs (auto) Total Counted Differential Comment Diff Path Review Toxic Granulation Dohle Bodies Platelet Estimate Sodium Potassium Chloride Carbon Dioxide Anion Gap BUN Creatinine Estim Creat Clear Calc Est GFR (MDRD) Af Amer Est GFR (MDRD) Non-Af BUN/Creatinine Ratio Glucose Hemoglobin A1c Calcium Vitamin B12 268 TSH Medical Necessity - Tobacco Use Smoking Status: Never smoker Tobacco Use: Non-smoker Assessment/Plan All Active Problems CVA (cerebral vascular accident) (Acute) SVT (supraventricular tachycardia) (Acute) #1 acute left occipital ischemic infarction-status post TPA administration, patient currently is n.p.o., aspirin is recommended for stroke prevention at this time unless the patient resumes full anticoagulation. According to oncology, patient has had a history of multiple VTE, again, we are awaiting confirmation that the patient can or cannot take oral intake, he may need a Dobbhoff tube placed again. #2 supraventricular ygfvlhexixc-[id number]-uieeuol is currently on amiodarone IV, again we will have to wait to see if he can be on oral amiodarone or it will be given down a Dobbhoff tube. #3 esophageal cancer #4 right internal carotid occlusive disease-not critical at this time #5 hyperlipidemia #6 dysphasia-secondary to esophageal cancer, patient may have to have his Dobbhoff replaced, barium swallow has been ordered for tomorrow Code Visit Inpatient E&M: 98510 Subs Hosp L2
--- NOTE | 2018-11-01 20:41 | NURSING ---
Dr Cruz, in with the pt at this time, he explained the plan for tomorrow at this time and pt seemed to be agreeable and understand. They will do a barium swallow test of the patient in x-ray if he does well and passes they plan is to leave the dobhoff out and let the pt take PO intake, if he fails the swallow study he will then have another dobhoff placed by Dr. Cruz.
--- NOTE | 2018-11-01 21:48 | CON.PCM_ITS ---
Reason for Consult Date of Consultation: 11/01/18 History of Present Illness: The patient is a 73 year old M when was found upper endoscopy to have a near obstructing esophageal cancer in the distal third of esophagus on September 29, 2018. I placed a Dobbhoff feeding tube with bridling of the Dobbhoff tube on September 13, 2018. I was not able to get both the scope and the Dobbhoff tube through the distal esophagus at that time. The patient then had displaced from the tube and had a replaced by Dr. Floyd who noted she was easily able to get through the distal esophagus. The Dobbhoff tube was taped to the nose but after communications with Dr. Rangel, if the patient had displacement of the tube again we would consider a trial of oral liquids to see if he could see him on off liquid in calories without the feeding tube. Over the weekend, the patient had an episode of expressive aphasia. She prese [facility] emergency department. He had resolved by the time he presented to the emergency department but given the findings and a CT scan did not demonstrate intracranial bleed, the patient was given TPA. He was admitted to the ICU for monitoring. While in the ICU, he was noted to have an episode of SVT with a heart rate up to 200s. The patient was given a Abdon seen which improved his heart rate back to normal sinus rhythm. The patient has no true residual defects and no weakness since admission to the hospital. Due to restless sleeping the previous evening, the taped Dobbhoff tube was fully removed. Past Medical History Past Medical History (Chronic Problems): Chronic Problems Esophageal cancer (Chronic) Dysphasia (Chronic) S/P radiofrequency ablation operation for arrhythmia (Chronic) Carotid artery disease (Chronic) Migraine (Chronic) Hyperlipidemia (Chronic) History of DVT (Chronic) GERD (Chronic) BPH (Chronic) Alcohol abuse (Chronic) Per family patient drinks about 3-4 beers per day Atrial fibrillation (Chronic) Following with Dr. Carcamo. On Coumadin therapy. Allergies No Known Allergies Allergy (Verified 09/10/18 11:33) Home Medications: Ambulatory Orders Medication Instructions Recorded Lactose-Reduced Food/Fiber 250 ml PO Q2H 10/29/18 [Isosource 1.5 Claus Liquid] Potassium Chloride 20 meq PO BID 10/29/18 Surgical History: noncontributory Smoking Status: Never smoker Tobacco Use: Non-smoker Alcohol: None Drugs: None - *Family History Maternal History Items: No pertinent history Review of Systems Constitutional: Reports: Weight Change. Denies: Chills, Fever HEENT: Denies: Head Aches, Sinus Congestion, Sinus Drainage Cardiovascular: Denies: Chest Pain, Palpitations Respiratory: Denies: Cough, Shortness of breath at rest, Sputum production Gastrointestinal: Denies: Abdominal Pain, Nausea, Vomiting Genitourinary: Denies: Dysuria Musculoskeletal: Denies: Joint Pain, Joint Tenderness Skin: Denies: Rash, Wounds Neurological: Reports: Slurred speech. Denies: Focal weakness, Numbness, Tingling Psychiatric: Denies: Anxiety, Depression, Homicidal Ideations, Suicidal Ideations Hematologic/ Lymphatic: Denies: Easy Bruising, Easy Bleeding Patient Problems: Active and Suspected Problems CVA (cerebral vascular accident) (Acute) SVT (supraventricular tachycardia) (Acute) - Physical Exam General: Alert, Oriented x3, Cooperative HEENT: Atraumatic, PERRLA, EOMI, Normocephalic Lungs: Clear to auscultation, Normal air movement Cardiovascular: Regular rate, Regular Rhythm Abdomen: Bowel Sounds Present, Soft, Non Tender Neurological: Cranial nerves II-XII grossly intact, Motor Exam 5/5 strength throughout Vital Signs Temp Pulse Resp BP Pulse Ox 98.9 F 102 H 30 H 118/65 95 11/01/18 21:00 11/01/18 21:00 11/01/18 21:00 11/01/18 21:00 11/01/18 21:00 Oxygen Flow Rate (L/min) 2 Oxygen Delivery Method Room Air Weight: 78.8 kg Body Mass Index (BMI) 24.7 Finger Stick Blood Glucose 99 Intake and Output for Last 24 Hours 10/30/18 10/31/18 11/01/18 23:59 23:59 23:59 Intake Total 1833 / 1833 401 / 401 703.5 / 703.5 Output Total 625 / 625 165 / 165 580 / 580 Balance 1208 / 1208 236 / 236 123.5 / 123.5 Microbiology Past 72 Hours 10/29/18 13:17 Blood Culture - Preliminary Blood Culture (Wb) - Anticubital Right No growth in 48 hours. Laboratory Tests Past 24 Hrs 10/29/18 10/30/18 11/01/18 09:45 22:50 03:55 WBC RBC Hgb Hct MCV MCH MCHC RDW RDW Differential Plt Count MPV Immature Gran % (Auto) Neut % (Auto) Lymph % (Auto) [place] % (Auto) Eos % (Auto) Baso % (Auto) Absolute Neuts (auto) Absolute Lymphs (auto) Total Counted Differential Comment Diff Path Review Reviewed Reviewed Toxic Granulation Dohle Bodies Platelet Estimate Sodium 139 Potassium 3.6 Chloride 104 Carbon Dioxide 23.0 Anion Gap 12 BUN 19 H Creatinine 0.85 Estim Creat Clear Calc 84.90 Est GFR (MDRD) Af Amer 114 Est GFR (MDRD) Non-Af 94 BUN/Creatinine Ratio 22.3 H Glucose 114 H Hemoglobin A1c Calcium 8.3 L Vitamin B12 TSH 11/01/18 11/01/18 11/01/18 03:55 03:55 03:55 WBC 1.2 L* RBC 2.72 L Hgb 8.6 L Hct 25.7 L MCV 94.5 H MCH 31.6 MCHC 33.5 RDW 14.3 RDW Differential 49.1 H Plt Count 60 L MPV 9.6 Immature Gran % (Auto) 0.000 Neut % (Auto) 84.6 H Lymph % (Auto) 7.3 L [place] % (Auto) 8.1 Eos % (Auto) 0.0 Baso % (Auto) 0.0 Absolute Neuts (auto) 1.1 L Absolute Lymphs (auto) 0.09 L Total Counted Not Reportable Differential Comment Diff Path Review Reviewed Toxic Granulation 1+ Dohle Bodies RARE Platelet Estimate MOD DEC Sodium Potassium Chloride Carbon Dioxide Anion Gap BUN Creatinine Estim Creat Clear Calc Est GFR (MDRD) Af Amer Est GFR (MDRD) Non-Af BUN/Creatinine Ratio Glucose Hemoglobin A1c 6.1 Calcium Vitamin B12 TSH 1.19 11/01/18 12:55 WBC RBC Hgb Hct MCV MCH MCHC RDW RDW Differential Plt Count MPV Immature Gran % (Auto) Neut % (Auto) Lymph % (Auto) [place] % (Auto) Eos % (Auto) Baso % (Auto) Absolute Neuts (auto) Absolute Lymphs (auto) Total Counted Differential Comment Diff Path Review Toxic Granulation Dohle Bodies Platelet Estimate Sodium Potassium Chloride Carbon Dioxide Anion Gap BUN Creatinine Estim Creat Clear Calc Est GFR (MDRD) Af Amer Est GFR (MDRD) Non-Af BUN/Creatinine Ratio Glucose Hemoglobin A1c Calcium Vitamin B12 268 TSH Assessment/Plan All Active Problems CVA (cerebral vascular accident) (Acute) SVT (supraventricular tachycardia) (Acute) distal esophageal cancer proceeding through chemotherapy and radiation with plans for likely resection. CVA prior to admission, displaced Dobbhoff tube. Asked that the patient obtain a swallowing study prior to replacement of the Dobbhoff tube. If the swallowing study is negative, then would trial and sure orally and liquids to see if he can maintain his necessary caloric intake and oral fluids as necessary. If the patient fails a swallowing study, this is important information for planning for the esophageal resection. We'll plan to replace Dobbhoff tube if necessary based on the above studies. If the patient does need his Dobbhoff tube placed, the patient understands the risks, benefits, and possible complications and consents to replacement of tube with repeat bridling of the Dobbhoff tube
[2018-11-02] VITALS (17 sets, daily range): BP systolic 109–138; BP diastolic 58–79; PULSE 108–133; RESP 16–22; TEMP 36.7–39.4; O2SAT 92–97; BMI 24.7
[2018-11-02] MEDS: 0.9% NaCl Peripheral Flush Adult/Peds IV (00:03)
[2018-11-02] MEDS: Metoprolol Tartrate 5 MG/5 ML Vial IV ×4 (00:03→18:21)
--- NOTE | 2018-11-02 06:45 | PCM.PN.INT ---
Subjective: The patient was seen and examined at the bedside this morning. Events from the last 24 hours have been reviewed. The patient is currently afebrile, hemodynamically stable and maintaining appropriate oxygen saturations on room air. The patient remains tachycardic with heart rates in the 120s and 30s. There are tentative plans for modified barium swallow this morning. The patient denies the presence of shortness of breath or cough. Objective: The patient's most recent lab work, culture data and imaging studies have all been personally reviewed. Blood cultures dated October 29 have shown no growth to date. General: Alert, Cooperative, No apparent distress HEENT: Atraumatic, PERRLA, Normocephalic Oral: No Gingival or Mucosal Lesions/ Ulcerations Neck: Supple, No Nodes, Trachea Midline Lungs: No rhonchi, No wheeze, No rales, Diminished Cardiovascular: Normal S1, Normal S2, No murmurs, Tachycardic Abdomen: Bowel Sounds Present, Soft, Non Tender Extremities: No clubbing, No cyanosis, No edema Skin: - - No significant change from previous Musculoskeletal: No Tenderness to Palpation of Joints or Extremities Lymphatic: No Cervical, Supraclavicular, or Inguinal Adenopathy Neurological: Neuro grossly intact Psych/Mental Status: Normal Affect, Appropriate Vital Signs Temp Pulse Resp BP Pulse Ox 37.0 C 131 H 20 H 120/72 94 11/02/18 06:00 11/02/18 06:05 11/02/18 06:00 11/02/18 06:05 11/02/18 06:00 Oxygen Flow Rate (L/min) 2 Oxygen Delivery Method Room Air Weight: 175 lb 7.807 oz Body Mass Index (BMI) 24.7 Finger Stick Blood Glucose 99 Intake and Output for Last 24 Hours 10/31/18 11/01/18 11/02/18 23:59 23:59 23:59 Intake Total 401 / 401 1420.5 / 1420.5 790 / 790 Output Total 165 / 165 780 / 780 200 / 200 Balance 236 / 236 640.5 / 640.5 590 / 590 Labs (Last 48 Hours) 10/29/18 10/30/18 10/31/18 09:45 22:50 04:20 WBC RBC Hgb Hct MCV MCH MCHC RDW RDW Differential Plt Count MPV Immature Gran % (Auto) Neut % (Auto) Lymph % (Auto) [place] % (Auto) Eos % (Auto) Baso % (Auto) Absolute Neuts (auto) Absolute Lymphs (auto) Total Counted Not Reportable Differential Comment Diff Path Review Reviewed Reviewed Toxic Granulation 1+ Dohle Bodies RARE Platelet Estimate Sodium Potassium Chloride Carbon Dioxide Anion Gap BUN Creatinine Estim Creat Clear Calc Est GFR (MDRD) Af Amer Est GFR (MDRD) Non-Af BUN/Creatinine Ratio Glucose Hemoglobin A1c Calcium Vitamin B12 TSH 11/01/18 11/01/18 11/01/18 03:55 03:55 03:55 WBC 1.2 L* RBC 2.72 L Hgb 8.6 L Hct 25.7 L MCV 94.5 H MCH 31.6 MCHC 33.5 RDW 14.3 RDW Differential 49.1 H Plt Count 60 L MPV 9.6 Immature Gran % (Auto) 0.000 Neut % (Auto) 84.6 H Lymph % (Auto) 7.3 L [place] % (Auto) 8.1 Eos % (Auto) 0.0 Baso % (Auto) 0.0 Absolute Neuts (auto) 1.1 L Absolute Lymphs (auto) 0.09 L Total Counted Not Reportable Differential Comment Diff Path Review Reviewed Toxic Granulation 1+ Dohle Bodies RARE Platelet Estimate MOD DEC Sodium 139 Potassium 3.6 Chloride 104 Carbon Dioxide 23.0 Anion Gap 12 BUN 19 H Creatinine 0.85 Estim Creat Clear Calc 84.90 Est GFR (MDRD) Af Amer 114 Est GFR (MDRD) Non-Af 94 BUN/Creatinine Ratio 22.3 H Glucose 114 H Hemoglobin A1c Calcium 8.3 L Vitamin B12 TSH 1.19 11/01/18 11/01/18 03:55 12:55 WBC RBC Hgb Hct MCV MCH MCHC RDW RDW Differential Plt Count MPV Immature Gran % (Auto) Neut % (Auto) Lymph % (Auto) [place] % (Auto) Eos % (Auto) Baso % (Auto) Absolute Neuts (auto) Absolute Lymphs (auto) Total Counted Differential Comment Diff Path Review Toxic Granulation Dohle Bodies Platelet Estimate Sodium Potassium Chloride Carbon Dioxide Anion Gap BUN Creatinine Estim Creat Clear Calc Est GFR (MDRD) Af Amer Est GFR (MDRD) Non-Af BUN/Creatinine Ratio Glucose Hemoglobin A1c 6.1 Calcium Vitamin B12 268 TSH Microbiology 10/29/18 13:17 Blood Culture (Wb) - Anticubital Right Blood Culture - Preliminary No growth in 48 hours. Clinical Impression(s) from Imaging Studies Brain CT 10/29/18 09:53 IMPRESSION: Chronic involutional changes of the brain. N.B. : The above information has been verbally conveyed by Addison Rogers MD to Maurice Wilde on 10/29/2018 10:24:08 (ET). Electronically Signed: Addison Rogers MD at 10:25 EST Tel [phone], Service support , Chest X-Ray 10/29/18 09:53 IMPRESSION: Focal area of increased markings in the right midlung. Follow-up is recommended. Electronically Signed: Addison Rogers MD at 10:27 EST Tel [phone], Service support , Head CTA 10/29/18 10:48 IMPRESSION: Normal yocha dehe of Yu without a demonstrated aneurysm or hemodynamically significant stenosis. Electronically Signed: Mathew Mills MD at 12:37 EST , Service support , Neck CTA 10/29/18 10:48 IMPRESSION: Atherosclerotic plaque formation at the right carotid bifurcation causing between 50 and 69% stenosis. Electronically Signed: Addison Rogers MD at 13:15 EST Tel [phone], Service support , Brain MRI 10/30/18 11:00 IMPRESSION: Acute left occipital infarct. N.B. : The above information has been verbally conveyed by Echo Hutchison MD to MEHUL Mandujano RN, on 10/30/2018 13:34:35 (ET). Electronically Signed: Echo Hutchison MD at 12:21 EST Tel , Service support , Brain CT 10/30/18 15:20 IMPRESSION: Chronic involutional changes of the brain. There are no acute findings. Electronically Signed: Brian Moran MD at 17:51 EST , Service support , Medical Necessity - Tobacco Use Smoking Status: Never smoker Tobacco Use: Non-smoker Assessment/Plan All Active Problems CVA (cerebral vascular accident) (Acute) SVT (supraventricular tachycardia) (Acute) RECOMMENDATIONS: 1. Continue Augmentin to complete treatment course for sinusitis. 2. Continue gentle IV fluid hydration until decision is made regarding nutritional status. 3. Rate control strategy per cardiology. 4. Encourage incentive spirometer use and mobilize patient as tolerated. 5. Modified barium swallow this morning. IMPRESSIONS: 1. Acute CVA status post TPA The patient has stabilized at this time. Continue medical management per neurology recommendations. The patient remains hemodynamically stable. Nutrition concerns to be addressed, once modified barium swallow was completed this morning. The patient will remain on gentle IV fluid hydration until that time. 2. Sepsis secondary to presumptive sinusitis Appears to be improving clinically. The patient is currently afebrile and hemodynamically stable. The patient will complete a treatment course of Augmentin for the aforementioned. 3. Supraventricular tachycardia/atrial fibrillation The patient has responded appropriately to the use of amiodarone. Cardiology is following. Continue rate/rhythm control strategy per recommendations. 4. History of alcohol abuse/advanced age/esophageal cancer/GERD/BPH/hyperlipidemia/pancytopenia Complicates care, management, recovery and prognosis. Likely okay to continue home medications. Physical therapy to work with patient today. This note was generated with [employer] dictation software. It may contain incorrect words, spelling, and punctuation that were not noted in checking the note before signing. Code Visit Inpatient E&M: 67786 Subs Hosp L2
--- NOTE | 2018-11-02 07:56 | PCM.PN.CARD ---
Subjectve: Patient is awake and alert. He denies any ongoing chest discomfort or worsening shortness of breath/dyspnea. He denies any ongoing palpitations or rapid heart rates sensations. Objective: Vital Signs Temp Pulse Resp BP Pulse Ox 98.6 F 108 H 20 H 120/72 94 11/02/18 06:00 11/02/18 07:28 11/02/18 06:00 11/02/18 06:05 11/02/18 06:00 Oxygen Flow Rate (L/min) 2 Oxygen Delivery Method Room Air Weight: 175 lb 7.807 oz Body Mass Index (BMI) 24.7 Finger Stick Blood Glucose 99 Intake and Output for Last 24 Hours 10/31/18 11/01/18 11/02/18 23:59 23:59 23:59 Intake Total 401 / 401 1420.5 / 1420.5 790 / 790 Output Total 165 / 165 780 / 780 200 / 200 Balance 236 / 236 640.5 / 640.5 590 / 590 General: Awake, Alert, Oriented x 3, Cooperative, No Acute Distress HEENT: Atraumatic, Normocephalic, PERRL, EOMI Oral: Moist Mucosa Neck: Supple, Good ROM, No JVD Lungs: Clear to auscultation Cardiovascular: Regular Rhythm, Normal S1, Normal S2 Abdomen: Bowel Sounds Present, Soft Extremities: No edema Psych/Mental Status: Appropriate 11/01/18 03:55: Hemoglobin A1c 6.1 Rhythm:Sinus rhythm / sinus tachycardia Medical Necessity - Tobacco Use Smoking Status: Never smoker Tobacco Use: Non-smoker Assessment/Plan 1. Supraventricular tachycardia The patient appears to have demonstrated evidence of an underlying supraventricular tachycardia. He is now status post IV adenosine with subsequent spontaneous conversion to sinus rhythm with premature ectopic complexes. Following conversion he was noted to have symptomatic improvement and improvement in his systolic blood pressure. At the present time he will continue to be monitored. He is on IV beta estuardo therapy as he cannot take oral medication at this time. His IV amiodarone has been discontinued. 2. Status post radiofrequency ablation The family states he is undergone radiofrequency ablation potentially 2006. They believe it may have occurred in [place], [place]. The exact arrhythmia for which the patient underwent ablation is uncertain at this time. It does appear the patient was evaluated by [facility] cardiology in 2013 and a [facility]. At that time it appears there was a comment of a history of atrial fibrillation and the patient being on medical management including anticoagulant therapy with warfarin, which was noted the patient may not have been compliant with, and had been previously followed as an outpatient with Dr. Carcamo of the [facility]. Per the [facility] cardiology consultation, which was due to ECG changes, it appears there was concern that the ECG changes were felt related to underlying metabolic changes and the patient required conservative therapy and no further cardiovascular or diagnostic studies, etc.. The [facility] current and most recent EMR system was reviewed. There does not appear to be any record of the patient maintaining outpatient cardiovascular follow up dating back to approximately 2010. 3. Carotid artery disease She has been undergoing evaluation for his CVA he was demonstrated to have by radiologic studies evidence of bilateral carotid artery disease. 4. Hyperlipidemia He can continue lipid-lowering therapy as deemed appropriate. 5. CVA Again he has been undergoing evaluation care for a CVA. He did receive thrombolytic therapy. He is being followed by internal medicine, the ICU staff, and neurology. 6. Esophageal carcinoma He does have esophageal carcinoma. He is being followed by Dr. Rangel of [facility]. He is receiving chemotherapy and radiation therapy. The family states that there is hope of future esophageal carcinoma surgery at the [facility] Main campus. There is some concern based upon his echocardiographic studies as to whether not any extrinsic mass, which may be related to his esophageal carcinoma, is next to and/or partially impinging upon his left atrium. This may need further evaluation with chest CT scan. At the present time the patient is undergoing swallowing evaluation as to whether or not he can safely take oral intake versus needing some type of feeding tube to receive oral intake and medications. This note was generated with [employer] software. It may contain incorrect words, spelling, and punctuation that were not noted in checking the note before signing.
--- NOTE | 2018-11-02 08:03 | PN.CARD_ITS ---
Subjectve: Patient is awake and alert. He denies any ongoing chest discomfort or worsening shortness of breath/dyspnea. He denies any ongoing palpitations or rapid heart rates sensations. Objective: Vital Signs Temp Pulse Resp BP Pulse Ox 98.6 F 108 H 20 H 120/72 94 11/02/18 06:00 11/02/18 07:28 11/02/18 06:00 11/02/18 06:05 11/02/18 06:00 Oxygen Flow Rate (L/min) 2 Oxygen Delivery Method Room Air Weight: 175 lb 7.807 oz Body Mass Index (BMI) 24.7 Finger Stick Blood Glucose 99 Intake and Output for Last 24 Hours 10/31/18 11/01/18 11/02/18 23:59 23:59 23:59 Intake Total 401 / 401 1420.5 / 1420.5 790 / 790 Output Total 165 / 165 780 / 780 200 / 200 Balance 236 / 236 640.5 / 640.5 590 / 590 General: Awake, Alert, Oriented x 3, Cooperative, No Acute Distress HEENT: Atraumatic, Normocephalic, PERRL, EOMI Oral: Moist Mucosa Neck: Supple, Good ROM, No JVD Lungs: Clear to auscultation Cardiovascular: Regular Rhythm, Normal S1, Normal S2 Abdomen: Bowel Sounds Present, Soft Extremities: No edema Psych/Mental Status: Appropriate 11/01/18 03:55: Hemoglobin A1c 6.1 Rhythm:Sinus rhythm / sinus tachycardia Medical Necessity - Tobacco Use Smoking Status: Never smoker Tobacco Use: Non-smoker Assessment/Plan 1. Supraventricular tachycardia The patient appears to have demonstrated evidence of an underlying supraventricular tachycardia. He is now status post IV adenosine with subsequent spontaneous conversion to sinus rhythm with premature ectopic complexes. Following conversion he was noted to have symptomatic improvement and improvement in his systolic blood pressure. At the present time he will continue to be monitored. He is on IV beta estuardo therapy as he cannot take oral medication at this time. His IV amiodarone has been discontinued. 2. Status post radiofrequency ablation The family states he is undergone radiofrequency ablation potentially 2006. They believe it may have occurred in [place], [place]. The exact arrhythmia for which the patient underwent ablation is uncertain at this time. It does appear the patient was evaluated by [facility] cardiology in 2013 and a [facility]. At that time it appears there was a comment of a history of atrial fibrillation and the patient being on medical management including anticoagulant therapy with warfarin, which was noted the patient may not have been compliant with, and had been previously followed as an outpatient with Dr. Carcamo of the [facility]. Per the [facility] cardiology consultation, which was due to ECG changes, it appears there was concern that the ECG changes were felt related to underlying metabolic changes and the patient required conservative therapy and no further cardiovascular or diagnostic studies, etc.. The [facility] current and most recent EMR system was reviewed. There does not appear to be any record of the patient maintaining outpatient cardiovascular follow up dating back to approximately 2010. 3. Carotid artery disease She has been undergoing evaluation for his CVA he was demonstrated to have by radiologic studies evidence of bilateral carotid artery disease. 4. Hyperlipidemia He can continue lipid-lowering therapy as deemed appropriate. 5. CVA Again he has been undergoing evaluation care for a CVA. He did receive thrombolytic therapy. He is being followed by internal medicine, the ICU staff, and neurology. 6. Esophageal carcinoma He does have esophageal carcinoma. He is being followed by Dr. Rangel of [facility]. He is receiving chemotherapy and radiation therapy. The family states that there is hope of future esophageal carcinoma surgery at the [facility] Main campus. There is some concern based upon his echocardiographic studies as to whether not any extrinsic mass, which may be related to his esophageal carcinoma, is next to and/or partially impinging upon his left atrium. This may need further evaluation with chest CT scan. At the present time the patient is undergoing swallowing evaluation as to whether or not he can safely take oral intake versus needing some type of feeding tube to receive oral intake and medications. This note was generated with [employer] software. It may contain incorrect words, spelling, and punctuation that were not noted in checking the note before signing.
[2018-11-02] MEDS: Dext 5%-0.45% NS 1,000 ML 125 ML IV ×2 (08:15→10:52)
--- NOTE | 2018-11-02 09:09 | NURSING ---
Pt to radiology for esophagram
--- NOTE | 2018-11-02 09:10 | RAD_ITS ---
STUDY: X-RAY - ESOPHAGUS (BARIUM SWALLOW) WITH FLUOROSCOPY REASON FOR EXAM: Male, 73 years old. Dysphagia. The patient has a history of esophageal carcinoma. TECHNIQUE: 11 view(s) of the esophagus were obtained following swallowing of barium. Examination is limited due to the patient's medical condition. FLUOROSCOPY TIME (if supplied): (1:35) minutes/seconds COMPARISON: None. 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 There is irregular barium collection in the region of the stomach as well as in the right upper quadrant and left upper quadrant. This may represent iron within a markedly distorted stomach with possible perforation or fistulous communication with bowel in the left upper quadrant. RAD/Esophagus Only IMPRESSION: Circumferential irregular wall thickening of the distal esophagus suggestive of carcinoma. Findings suggestive of abnormal appearance of the stomach with the involvement of neoplasm. Irregular barium collection in the left upper quadrant suggestive of either fistulous indication or localized perforation. Electronically Signed: Addison Rogers MD at 13:51 EST Tel [phone], Service support ,
--- NOTE | 2018-11-02 10:48 | CASEMGMT ---
Patient has a healthcare POA and healthcare LW. They are on file. It was confirmed his son Deny is his POA. Ira GALLO MSW
--- NOTE | 2018-11-02 14:31 | CT_ITS ---
STUDY: CT ABDOMEN AND PELVIS WITHOUT CONTRAST REASON FOR EXAM: Male, 73 years old. Abdominal pain. History of esophageal cancer. RADIATION DOSAGE (If Supplied By Facility): CTDIvol = ( 13.22 ) mGy, DLP = ( 1192.91 ) mGycm TECHNIQUE: Transaxial images were obtained from the dome of the diaphragm to the symphysis pubis without oral contrast, and without intravenous contrast. Sagittal and coronal images were reconstructed. Individualized dose optimization techniques were used for this CT. COMPARISON: Comparison is made with prior CT scan abdomen dated April 19, 2018 and prior esophagram done earlier today. FINDINGS: There now is evidence of right lower lobe consolidation. Oral barium from prior esophagram is seen within the right lower lobe. Air-containing structure is seen within the right lower lobe as well. There is evidence of air surrounding the gastroesophageal junction in the lower mediastinum. Coronary artery calcification. Small pericardial effusion. Localized collection of free intra-abdominal air. Normal liver. Sludge is seen within the gallbladder lumen. Normal spleen. Normal pancreas. Normal bilateral adrenal glands. Normal right kidney. Normal left kidney. A small amount of barium is seen within the body of the stomach. A small amount of ingested contrast from prior esophagram is seen within proximal nondilated small bowel loops. Distention of the transverse colon. The appendix is visualized and appears normal. Normal abdominal aorta. Normal inferior vena cava. Normal retroperitoneum. Distended urinary bladder. Prostatic enlargement. CT/Abdomen/Pelvis without Cont IMPRESSION: Contrast from prior esophagram is seen in the right lower lobe. A small amount of air is seen in the lower mediastinum. Perforation at the gastroesophageal junction with fistulous communication is suggested. Distended transverse colon. Small pericardial effusion. Distended urinary bladder and enlargement of the prostate. Electronically Signed: Addison Rogers MD at 15:19 EST Tel [phone], Service support ,
--- NOTE | 2018-11-02 14:31 | CT_ITS ---
STUDY: CT CHEST WITHOUT CONTRAST REASON FOR EXAM: Male, 73 years old. Chest pain. Cough. History of esophageal carcinoma. RADIATION DOSAGE (If Supplied By Facility): CTDIvol = ( 13.22 ) mGy, DLP = ( 1192.91 ) mGycm TECHNIQUE: Transaxial imaging was performed without the administration of intravenous contrast material. Multiplanar coronal and sagittal images were reformatted. Individualized dose optimization techniques were used for this CT. COMPARISON: None. FINDINGS: Right lower lobe consolidation. Barium is seen within the right lower lobe. With the patient's history of esophageal carcinoma, rupture at the gastroesophageal junction with fistulous medication into the right lung should be ruled out. There is no demonstrated pleural abnormality. There are calcifications of the coronary arteries. Small pericardial effusion. Localized pneumomediastinum in the lower mediastinum adjacent to the distal esophagus. Normal hilar regions. Normal unenhanced pulmonary arteries. There is atherosclerotic calcification of the aortic arch with tortuosity and elongation of the aortic arch and descending thoracic aorta. There is demineralization of the thoracic spine. Findings of the abdomen dictated on the CT scan of the abdomen. CT/Chest without Contrast IMPRESSION: Findings suggestive of a rupture of the distal esophagus at the gastroesophageal junction with the contrast seen in the right lower lobe. Right lower lobe consolidation. Small pericardial effusion. Localized pneumomediastinum at the gastroesophageal junction. Electronically Signed: Addison Rogers MD at 15:21 EST Tel [phone], Service support ,
--- NOTE | 2018-11-02 14:39 | CASEMGMT ---
According to [facility] website, the following are in-network tertiary facilities: [facility], [facility], [facility], [facility], [facility], [facility], [facility], [facility], and . [facility] CM
--- NOTE | 2018-11-02 19:06 | PN.SURG_ITS ---
Patient Problems: Active and Suspected Problems CVA (cerebral vascular accident) (Acute) SVT (supraventricular tachycardia) (Acute) Subjective: no specific complaints - Physical Exam General: Alert, Oriented x3, Cooperative Lungs: Clear to auscultation Cardiovascular: Regular rate, Regular Rhythm Abdomen: Bowel Sounds Present, Soft, Non Tender Vital Signs Temp Pulse Resp BP Pulse Ox 102.8 F H 133 H 18 118/79 92 11/02/18 18:15 11/02/18 18:21 11/02/18 18:15 11/02/18 18:15 11/02/18 18:15 Oxygen Flow Rate (L/min) 3 Oxygen Delivery Method Nasal Cannula Weight: 79.6 kg Body Mass Index (BMI) 24.7 Finger Stick Blood Glucose 99 Intake and Output for Last 24 Hours 10/31/18 11/01/18 11/02/18 23:59 23:59 23:59 Intake Total 401 / 401 1420.5 / 1420.5 790 / 790 Output Total 165 / 165 780 / 780 500 / 500 Balance 236 / 236 640.5 / 640.5 290 / 290 Microbiology Past 72 Hours 10/29/18 13:17 Blood Culture - Preliminary Blood Culture (Wb) - Anticubital Right No growth in 48 hours. Medical Necessity - Tobacco Use Smoking Status: Never smoker Tobacco Use: Non-smoker Assessment/Plan All Active Problems CVA (cerebral vascular accident) (Acute) SVT (supraventricular tachycardia) (Acute) distal esophageal cancer proceeding through chemotherapy and radiation with plans for likely resection. CVA prior to admission, displaced Dobbhoff tube. Asked that the patient obtain a swallowing study prior to replacement of the Dobbhoff tube. the patient underwent an esophagram today which unfortunately demonstrated contrast extravasating from his distal esophagus into his right hemithorax. I spoke with Dr. Hayward about these findings. I contacted the thoracic surgery Department at [facility]- Dr. Smith who is accepting the patient
[2018-11-02] MEDS: Acetaminophen 650 MG Suppository RECTAL (19:49)
--- NOTE | 2018-11-03 21:06 | PCM.DC.SUM ---
Discharge Date and Diagnosis Date of Admission: 10/29/18 Date of Discharge: 11/02/18 - Primary Discharge Diagnosis #1 acute left occipital ischemic infarction-left MCA distribution #2 supraventricular tachycardia-paroxysmal #3 esophageal cancer #4 right internal carotid occlusive disease-not critical #5 hyperlipidemia #6 dysphasia-secondary to esophageal cancer #7 acute perforation of the distal esophagus secondary to esophageal cancer #8 pneumomediastinum - Secondary Discharge Diagnosis Chronic Problems Esophageal cancer (Chronic) Dysphasia (Chronic) S/P radiofrequency ablation operation for arrhythmia (Chronic) Carotid artery disease (Chronic) Migraine (Chronic) Hyperlipidemia (Chronic) History of DVT (Chronic) GERD (Chronic) BPH (Chronic) Alcohol abuse (Chronic) Per family patient drinks about 3-4 beers per day Atrial fibrillation (Chronic) Following with Dr. Carcamo. On Coumadin therapy. Hospital Course and Treatment Operations: None Procedures: 2-D Echocardiogram, - - TPA administration Summary of Care Provided: The patient is a 73 year old M C room with chief complaint speech difficulty and confusion. He had a history of esophageal cancer and had been undergoing chemotherapy and radiation. On examination, patient's NIH stroke score was 3, stroke team was activated and patient went to CT, no intracranial bleed was noted and neurology was contacted and neurology advised administration of TPA. Patient was admitted to the ICU, he was seen in consultation by neurology and critical care medicine. MRI was performed which showed an acute left occipital infarct, nonocclusive carotid disease was noted on the patient's MRA. Patient had SVT while in the ICU and was seen in consultation by cardiology and was placed on IV medications for troll of the SVT. Patient's Dobbhoff feeding tube which had been inserted for nutrition due to the patient's esophageal cancer became dislodged. Patient was transferred to PCU and was seen in consultation by general surgery for replacement of the patient's Dobbhoff tube. Patient was seen in consultation by PT OT and speech therapy, speech therapy recommended a barium swallow which was performed and showed evidence of distal esophageal perforation. CT of the chest and abdomen was obtained which confirmed the presence of a distal esophageal perforation. General surgery recommended transfer the patient to a tertiary facility for further care. On 11/02/18, patient was seen and examined: On examination he appeared in good health and spirits. Vital signs as documented. Skin warm and dry and without overt rashes. Neck without JVD. Lungs clear. Heart exam notable for irregular rhythm. Abdomen unremarkable and without evidence of organomegaly, masses, or abdominal aortic enlargement. Extremities nonedematous. Neuro: Cranial nerves II through XII are grossly intact, no focal motor deficits were noted, sensation to light touch and pinprick intact. Psych: Patient is alert and oriented x3, he does not appear anxious or depressed On 11/02/18, patient was seen and examined and felt to be in stable condition for transfer to [facility] for further care, prognosis was guarded. - Physical Exam Vital Signs Temp Pulse Resp BP Pulse Ox 102.8 F H 133 H 18 118/79 92 11/02/18 18:15 11/02/18 18:21 11/02/18 18:15 11/02/18 18:15 11/02/18 18:15 Oxygen Flow Rate (L/min) 3 Oxygen Delivery Method Nasal Cannula Weight: 79.6 kg Body Mass Index (BMI) 24.7 Finger Stick Blood Glucose 99 Intake and Output for Last 24 Hours 11/01/18 11/02/18 11/03/18 23:59 23:59 23:59 Intake Total 1420.5 / 1420.5 790 / 790 Output Total 780 / 780 500 / 500 Balance 640.5 / 640.5 290 / 290 Microbiology Past 72 Hours 10/29/18 13:17 Blood Culture - Final Blood Culture (Wb) - Anticubital Right No growth in 5 days. Home Medications: Medications to take at Discharge Lactose-Reduced Food/Fiber [Isosource 1.5 Claus Liquid] 250 ml PO Q2H 10/29/18 Potassium Chloride 20 meq PO BID 10/29/18 Primary Care Physician: Radha Franz MD [Primary Care Provider] - Disposition: Acute care Hospital Minutes spent on discharge:: 32 Patient Condition:: Stable Medical Necessity - Tobacco Use Smoking Status: Never smoker Tobacco Use: Non-smoker Meaningful Use Info Meaningful Use Diagnoses (Choose all that apply): Ischemic CVA - CVA Therapy Assessed for PT,OT and/or ST?: Yes - Ischemic Stroke Antithrombotic order at d/c?: No Reason antithrombotic not ordered: Medical Contraindication - Patient had an esophageal perforation Dx of Atrial fib/flutter?: Yes Anticoagulant at discharge?: No Reason anticoagulant not ordered: Medical Contraindication - Patient was diagnosed as having an acute esophageal perforation Statins at discharge?: No Reason Statin not ordered: Medical Contraindication - Patient had an esophageal perforation Primary Dx Acute Ischemic CVA?: Yes IV tPA ordered during stay?: Yes Code Visit Inpatient E&M: 24837 Disch Hosp
== END 2018-11-02 19:19 | disposition short-term general hospital (02) | DRG 61 ==
LOC: ED 10:07 → ICU 13:42 → PCU 11-02 10:09
PROVIDERS: Hospitalist; Internal Medicine Critical Care Medicine; Psychiatry & Neurology Neurology; Admitting Provider Family Medicine; Emergency Provider Emergency Medicine; Family Provider Internal Medicine; PCP Internal Medicine; Referring Provider Family Medicine; Visit Provider Internal Medicine
DX: I63.512 Cerebral infarction due to unspecified occlusion or stenosis of left middle cerebral artery (principal); D61.810 Antineoplastic chemotherapy induced pancytopenia; K22.3 Perforation of esophagus; I47.1 Supraventricular tachycardia; C15.5 Malignant neoplasm of lower third of esophagus; R47.01 Aphasia; E78.5 Hyperlipidemia, unspecified; N40.0 Benign prostatic hyperplasia without lower urinary tract symptoms; K21.9 Gastro-esophageal reflux disease without esophagitis; F10.10 Alcohol abuse, uncomplicated; R29.703 NIHSS score 3; R13.10 Dysphagia, unspecified; Z92.3 Personal history of irradiation; I48.91 Unspecified atrial fibrillation; Z86.718 Personal history of other venous thrombosis and embolism; T45.1X5A Adverse effect of antineoplastic and immunosuppressive drugs, initial encounter
CPT/HCPCS: 36569; 70450; 70496; 70498; 70551; 71045; 71250; 74176; 74220; 80048; 80061; 81001; 82607; 82962; 83036; 83605; 84443; 84484; 85025; 85610; 85730; 87040; 92526; 93005; 93306; 97110; 97162; 97166; 97530; 97802; 99285; J2997; J7030; J7040; J7050; Q9967; A4216; J0153; J3490; J7799